=== PATIENT | male | born 1965 | race Caucasian/White ===

== ENCOUNTER 2022-03-12 14:25 | Inpatient (IN) | payer OTHER ==
[2022-03-12] MEDS ORDERED: SODIUM CHLORIDE 0.9% 1,000 ML IV STA (14:41)
[2022-03-12] MEDS ORDERED: DIPH,PERTUS(ACELL)TETVAC-LF 0.5 ML VIAL IM ONE (14:43)
[2022-03-12] MEDS ORDERED: DILTIAZEM DRIP BOLUS FROM BAG 1 MG SOLN IV ONE (14:44)
[2022-03-12] MEDS: DILTIAZEM 125 MG in SODIUM CHLORIDE 0.9% 100 ML IV SCH ×3 (14:52→16:22)
--- NOTE | 2022-03-12 15:20 | ED ---
General Adult HPI - General Chief complaint: Neuro Symptoms/Deficit Stated complaint: Stroke Time Seen by Provider: 03/12/22 14:50 Source: patient, RN notes reviewed, old records reviewed Mode of arrival: ambulatory Limitations: no limitations - History of Present Illness Initial comments: This is a 56-year-old male presents emergency Department states he is a heavy drinker. He quit about 6 weeks ago. Patient states since that time he's been having on and off droopiness on the right side of his face as well as slurred speech. Patient also has noted some weakness in his right arm. Patient states it comes and goes up until about 3 days ago and now it is stays permanently. Patient states this droop in the right side of his face is not changed the slurred speech again remains constant for 3 days. Patient states the weakness in the arm also started about 3 days ago and has not changed and he is also loss of coordination of the right arm. Patient denies any headache patient denies numbness weakness. Patient states he did fall today and hit the front of his head. Patient states he has no chest pain palpitations difficulty breathing or shortness of breath. - Related Data Home Medications Medication Instructions Recorded Confirmed No Known Home Medications 03/12/22 03/12/22 Allergies Allergy/AdvReac Type Severity Reaction Status Date / Time No Known Allergies Allergy Verified 03/12/22 15:57 Review of Systems ROS Statement: Those systems with pertinent positive or pertinent negative responses have been documented in the HPI. ROS Other: All systems not noted in ROS Statement are negative. Past Medical History Past Medical History: No Reported History History of Any Multi-Drug Resistant Organisms: None Reported Past Surgical History: No Surgical Hx Reported Past Psychological History: No Psychological Hx Reported Smoking Status: Current every day smoker Past Alcohol Use History: Abuse, Daily Past Drug Use History: None Reported General Exam - General Exam Comments Initial Comments: GENERAL: Patient is well-developed and well-nourished. Patient is nontoxic and well- hydrated and is in mild distress. ENT: Neck is soft and supple. No significant lymphadenopathy is noted. Oropharynx is clear. Moist mucous membranes. Neck has full range of motion without eliciting any pain. EYES: The sclera were anicteric and conjunctiva were pink and moist. Extraocular movements were intact and pupils were equal round and reactive to light. Eyelids were unremarkable. PULMONARY: Unlabored respirations. Good breath sounds bilaterally. No audible rales rhonchi or wheezing was noted. CARDIOVASCULAR: Patient is tachycardic and irregular at about 160 beats a minute ABDOMEN: Soft and nontender with normal bowel sounds. SKIN: Patient has a superficial abrasion to the bridge of his nose and forehead. NEUROLOGIC: Patient is alert and oriented x3. Patient has right-sided facial droop. Patient's right hand significantly weaker 3 out of 5 compared to the left. Patient's speech is slurred. Symmetrical smile. Finger to nose testing of the right hand is significantly off MUSCULOSKELETAL: Normal extremities with adequate strength and full range of motion. LYMPHATICS: No significant lymphadenopathy is noted PSYCHIATRIC: Normal psychiatric evaluation. Limitations: no limitations Course Vital Signs 03/12/22 03/12/22 03/12/22 14:49 15:15 16:07 Temperature 97.9 F Pulse Rate 172 H 128 H 160 H Respiratory 24 14 Rate Blood Pressure 114/80 104/74 138/104 O2 Sat by Pulse 87 L 97 Oximetry 03/12/22 18:16 Temperature Pulse Rate 111 H Respiratory 16 Rate Blood Pressure 100/71 O2 Sat by Pulse 71 L Oximetry Medical Decision Making - Medical Decision Making Patient was started on Cardizem. EKG shows atrial fibrillation with rapid ventricular response at 169 bpm QRS is 93 QT interval 250 QTC is 342. Patient's EKG shows no ST segment elevation or depression. CT of the chest showed multiple pulmonary embolisms with some heart strain. Patient was started on high-dose heparin. Patient's ABG showed a pH of 7.4 pCO2 15 partial pressure of oxygen of 109 bicarb of 10 and O2 sat of 97.[address] Barksdale he agreed to admit the patient admitted the patient I consulted Dr. Frederick. I spoke with Dr. Frederick he agreed to accept the admission to the ICU. - Lab Data Result diagrams: 03/12/22 15:15 03/12/22 15:15 Lab Results 03/12/22 03/12/22 03/12/22 Range/Units 15:15 15:15 15:15 WBC 10.8 H (3.8-10.6) k/uL RBC 5.40 (4.30-5.90) m/uL Hgb 16.9 (13.0-17.5) gm/dL Hct 54.7 H (39.0-53.0) % MCV 101.2 H (80.0-100.0) fL MCH 31.3 (25.0-35.0) pg MCHC 31.0 (31.0-37.0) g/dL RDW 13.8 (11.5-15.5) % Plt Count 168 (150-450) k/uL MPV 9.7 Neutrophils % 80 % Lymphocytes % 13 % Monocytes % 5 % Eosinophils % 0 % Basophils % 0 % Neutrophils # 8.7 H (1.3-7.7) k/uL Lymphocytes # 1.4 (1.0-4.8) k/uL Monocytes # 0.5 (0-1.0) k/uL Eosinophils # 0.0 (0-0.7) k/uL Basophils # 0.0 (0-0.2) k/uL Hypochromasia Slight Macrocytosis Slight PT 19.9 H (9.0-12.0) sec INR 2.0 H (<1.2) APTT 23.0 (22.0-30.0) sec D-Dimer (<0.60) mg/L FEU Sample Site ABG pH (7.35-7.45) ABG pCO2 (35-45) mmHg ABG pO2 (83-108) mmHg ABG HCO3 (21-25) mmol/L ABG Total CO2 (19-24) mmol/L ABG O2 Saturation (94-97) % ABG Base Excess mmol/L Behzad Test FiO2 % Sodium 140 (137-145) mmol/L Potassium 4.3 (3.5-5.1) mmol/L Chloride 105 (98-107) mmol/L Carbon Dioxide 13 L (22-30) mmol/L Anion Gap 22 mmol/L BUN 32 H (9-20) mg/dL Creatinine 1.50 H (0.66-1.25) mg/dL Est GFR (CKD-EPI)AfAm 59 (>60 ml/min/1.73 sqM) Est GFR (CKD-EPI)NonAf 51 (>60 ml/min/1.73 sqM) Glucose 119 H (74-99) mg/dL Calcium 9.1 (8.4-10.2) mg/dL Total Bilirubin 7.2 H (0.2-1.3) mg/dL AST 2512 H (17-59) U/L ALT 1651 H (4-49) U/L Alkaline Phosphatase 134 H (38-126) U/L Ammonia (<30) umol/L Troponin I (0.000-0.034) ng/mL NT-Pro-B Natriuret Pep pg/mL Total Protein 7.1 (6.3-8.2) g/dL Albumin 3.8 (3.5-5.0) g/dL Serum Alcohol <10 mg/dL 03/12/22 03/12/22 03/12/22 Range/Units 15:15 16:20 16:20 WBC (3.8-10.6) k/uL RBC (4.30-5.90) m/uL Hgb (13.0-17.5) gm/dL Hct (39.0-53.0) % MCV (80.0-100.0) fL MCH (25.0-35.0) pg MCHC (31.0-37.0) g/dL RDW (11.5-15.5) % Plt Count (150-450) k/uL MPV Neutrophils % % Lymphocytes % % Monocytes % % Eosinophils % % Basophils % % Neutrophils # (1.3-7.7) k/uL Lymphocytes # (1.0-4.8) k/uL Monocytes # (0-1.0) k/uL Eosinophils # (0-0.7) k/uL Basophils # (0-0.2) k/uL Hypochromasia Macrocytosis PT (9.0-12.0) sec INR (<1.2) APTT (22.0-30.0) sec D-Dimer 15.21 H (<0.60) mg/L FEU Sample Site ABG pH (7.35-7.45) ABG pCO2 (35-45) mmHg ABG pO2 (83-108) mmHg ABG HCO3 (21-25) mmol/L ABG Total CO2 (19-24) mmol/L ABG O2 Saturation (94-97) % ABG Base Excess mmol/L Behzad Test FiO2 % Sodium (137-145) mmol/L Potassium (3.5-5.1) mmol/L Chloride (98-107) mmol/L Carbon Dioxide (22-30) mmol/L Anion Gap mmol/L BUN (9-20) mg/dL Creatinine (0.66-1.25) mg/dL Est GFR (CKD-EPI)AfAm (>60 ml/min/1.73 sqM) Est GFR (CKD-EPI)NonAf (>60 ml/min/1.73 sqM) Glucose (74-99) mg/dL Calcium (8.4-10.2) mg/dL Total Bilirubin (0.2-1.3) mg/dL AST (17-59) U/L ALT (4-49) U/L Alkaline Phosphatase (38-126) U/L Ammonia (<30) umol/L Troponin I 0.017 (0.000-0.034) ng/mL NT-Pro-B Natriuret Pep 6360 pg/mL Total Protein (6.3-8.2) g/dL Albumin (3.5-5.0) g/dL Serum Alcohol mg/dL 03/12/22 03/12/22 Range/Units 16:41 17:22 WBC (3.8-10.6) k/uL RBC (4.30-5.90) m/uL Hgb (13.0-17.5) gm/dL Hct (39.0-53.0) % MCV (80.0-100.0) fL MCH (25.0-35.0) pg MCHC (31.0-37.0) g/dL RDW (11.5-15.5) % Plt Count (150-450) k/uL MPV Neutrophils % % Lymphocytes % % Monocytes % % Eosinophils % % Basophils % % Neutrophils # (1.3-7.7) k/uL Lymphocytes # (1.0-4.8) k/uL Monocytes # (0-1.0) k/uL Eosinophils # (0-0.7) k/uL Basophils # (0-0.2) k/uL Hypochromasia Macrocytosis PT (9.0-12.0) sec INR (<1.2) APTT (22.0-30.0) sec D-Dimer (<0.60) mg/L FEU Sample Site Right Radial ABG pH 7.42 (7.35-7.45) ABG pCO2 16 L* (35-45) mmHg ABG pO2 109 H (83-108) mmHg ABG HCO3 10 L* (21-25) mmol/L ABG Total CO2 11 L (19-24) mmol/L ABG O2 Saturation 97.9 H (94-97) % ABG Base Excess -14.5 mmol/L Behzad Test Yes FiO2 21 % Sodium (137-145) mmol/L Potassium (3.5-5.1) mmol/L Chloride (98-107) mmol/L Carbon Dioxide (22-30) mmol/L Anion Gap mmol/L BUN (9-20) mg/dL Creatinine (0.66-1.25) mg/dL Est GFR (CKD-EPI)AfAm (>60 ml/min/1.73 sqM) Est GFR (CKD-EPI)NonAf (>60 ml/min/1.73 sqM) Glucose (74-99) mg/dL Calcium (8.4-10.2) mg/dL Total Bilirubin (0.2-1.3) mg/dL AST (17-59) U/L ALT (4-49) U/L Alkaline Phosphatase (38-126) U/L Ammonia 35 H (<30) umol/L Troponin I (0.000-0.034) ng/mL NT-Pro-B Natriuret Pep pg/mL Total Protein (6.3-8.2) g/dL Albumin (3.5-5.0) g/dL Serum Alcohol mg/dL Critical Care Time Critical Care Time: Yes Total Critical Care Time: 35 Disposition Clinical Impression: Cerebrovascular accident (CVA), Alcoholic hepatitis, Alcohol abuse, Pulmonary embolism, Atrial fibrillation with rapid ventricular response, Pulmonary infarct Disposition: ADMITTED IP TO THIS HOSP Referrals: None,Stated [Primary Care Provider] - 1-2 days Time of Disposition: 18:39
[2022-03-12 15:33] LABS: Prothrombin Time 19.9 sec (9.0-12.0)
[2022-03-12 15:38] LABS: Basophils % (A) 0 %; Eosinophils % (A) 0 %; HCT 54.7 % (39.0-53.0); HGB 16.9 gm/dL (13.0-17.5); Hypochromasia Slight; Lymphocytes # (A) 1.4 k/uL (1.0-4.8); Lymphocytes % (A) 13 %; MCH 31.3 pg (25.0-35.0); MCV 101.2 fL (80.0-100.0); Macrocytosis Slight; Mean Platelet Volume 9.7; Monocytes # (A) 0.5 k/uL (0-1.0); Monocytes % (A) 5 %; Neutrophils # (A) 8.7 k/uL (1.3-7.7); Neutrophils % (A) 80 %; Platelet Count 168 k/uL (150-450); RDW 13.8 % (11.5-15.5); WBC 10.8 k/uL (3.8-10.6)
--- NOTE | 2022-03-12 15:53 | CT ---
EXAMINATION TYPE: CT brain wo con DATE OF EXAM: 03/12/2022 COMPARISON: None HISTORY: ams, cva CT DLP: [address] of the brain was performed. The ventricles, basal cisterns and sulci overlying the cerebral convexities demonstrate mild enlargem ent. There is decreased attenuation left parietal lobe which could reflect an area of acute insult. C orrelate clinically. There is no evidence for intracranial hemorrhage or sulcal effacement. There is decreased attenuation about the periventricular white matter and deep white matter of both c erebral hemispheres, compatible with chronic small vessel ischemia. Differential diagnosis does inclu de demyelination. No mass effects are seen.No midline shift. Osseous calvarium is intact. If symptoms persist consider MRI. IMPRESSION: 1. There is decreased attenuation left parietal lobe which could reflect an area of acute insult. Cor relate clinically. No hemorrhagic transformation seen
--- NOTE | 2022-03-12 15:58 | XR ---
EXAMINATION TYPE: XR chest 2V DATE OF EXAM: 03/12/2022 COMPARISON: NONE HISTORY: Shortness of breath TECHNIQUE: Frontal and lateral views of the chest are obtained. FINDINGS: Scattered senescent parenchymal changes noted. Hyperinflation compatible with COPD. Increased density right lower lobe may reflect developing infiltrate. Correlate clinically and progre ss studies are recommended. Heart size is stable. Mediastinal structures are stable and grossly unremarkable. No evidence for hilar prominence. Degenerative changes dorsal spine. IMPRESSION: 1. No evidence for acute pulmonary disease.
[2022-03-12 16:02] LABS: African American GFR (CKD) 59 (>60 ml/min/1.73 sqM); Albumin 3.8 g/dL (3.5-5.0); Alcohol <10 mg/dL; Alkaline Phosphatase 134 U/L (38-126); Anion Gap 22 mmol/L; Blood Urea Nitrogen 32 mg/dL (9-20); Calcium 9.1 mg/dL (8.4-10.2); Carbon Dioxide 13 mmol/L (22-30); Chloride 105 mmol/L (98-107); Glucose 119 mg/dL (74-99); Non-African American GFR(CKD) 51 (>60 ml/min/1.73 sqM); Potassium 4.3 mmol/L (3.5-5.1); Sodium 140 mmol/L (137-145); Total Bilirubin 7.2 mg/dL (0.2-1.3); Total Protein 7.1 g/dL (6.3-8.2)
--- NOTE | 2022-03-12 16:30 | CT ---
EXAMINATION TYPE: CT angio head neck DATE OF EXAM: 03/12/2022 HISTORY: ams, cva COMPARISON: CT same date CT DLP: 544.7 mGycm. Automated Exposure Control for Dose Reduction was Utilized. TECHNIQUE: CTA scan of the neck and brain is performed with IV Contrast, patient injected with 65cc mL of Isovue 370, axial images are obtained, coronal and sagittal reformatted images are reviewed. 3D reconstructed images are created on an independent workstation and reviewed. FINDINGS: Carotid/Vascular Structures: The innominate artery, left and right common carotid, left and right sub clavian, left and right vertebral arteries, internal and extra carotid arteries are patent . Anterior posterior circulation within the brain is intact. No evident aneurysm, stenosis, dissection, embolus . Other: There is multilevel spondylosis, uncovertebral joint hypertrophy consistent with degenerative disc disease, there is multilevel foraminal encroachment IMPRESSION: No significant abnormality is seen. NASCET criteria was used in interpretation of this exam?
[2022-03-12 16:46] LABS: ABG Base Excess -14.5 mmol/L; ABG Oxygen Saturation 97.9 % (94-97); ABG PH 7.42 (7.35-7.45); ABG PO2 109 mmHg (83-108); ABG TCO2 11 mmol/L (19-24); Allen Test Performed? Yes
[2022-03-12 16:52] LABS: ABG HCO3 10 mmol/L (21-25); ABG PCO2 16 mmHg (35-45)
[2022-03-12 16:59] LABS: ALT 1651 U/L (4-49); AST 2512 U/L (17-59)
--- NOTE | 2022-03-12 18:11 | CT ---
EXAMINATION TYPE: CT chest angio for PE CT DLP: 684.7 mGycm, Automated exposure control for dose reduction was used. DATE OF EXAM: 03/12/2022 5:40 PM COMPARISON: Chest radiograph from same day. Multiple CTs of the chest with most recent on . CLINICAL INDICATION:Male, 56 years old with history of D-dimer elevated, shortness of breath; elevate d d-dimer, ams TECHNIQUE/CONTRAST: CTA scan of the thorax is performed with IV Contrast, patient injected with 65cc mL of Isovue 370, pulmonary embolism protocol. MIP images are created and reviewed. FINDINGS: Motion limits evaluation. Pulmonary Artery: There are scattered filling defects most pronounced on the right involving the righ t upper middle and lower lobes lobar and segmental branches extending into the subsegmental branches. Additional subsegmental filling defects are seen within the left upper lobe. Motion does limit evalu ation of the smaller pulmonary vasculature. Lungs/Pleura: Wedge-shaped area of consolidation seen within the right lower lobe could be early pulm onary infarct. Airway: Large airways are patent. Heart: Within normal limits for size.. Vasculature: No evidence of aortic aneurysm. Mediastinum: No gross evidence of adenopathy. Musculoskeletal: No acute osseous abnormalities. Multilevel disc degeneration changes of the spine wi th straightening of the spine curvature. Soft Tissues: Unremarkable. Lower neck: No significant findings. Upper Abdomen: Diffuse low-attenuation to the liver parenchyma. Nonobstructing left renal calculi par tially visualized. Findings communicated to Dr. Hay Chaparro on 03/12/2022 6:[address] Julio Galvez. IMPRESSION: 1. Scattered pulmonary emboli which are are most pronounced on the right. There is signs of right hea rt strain with reflux of contrast into the IVC. Correlate with serum markers. 2. Wedge-shaped area within the right lower lobe likely representing pulmonary infarct from #1.
[2022-03-12] MEDS ORDERED: LORazepam 2 MG/ML INJ IV PRN (18:36)
[2022-03-12] MEDS ORDERED: THIAMINE 100 MG/ML 2 ML VIAL IM STA (18:36)
[2022-03-12] MEDS ORDERED: DEXTROSE 5% IN WATER 1,000 ML with SODIUM BICARB (1 MEQ/ML) 100 ML IV SCH (18:45)
[2022-03-12] MEDS ORDERED: NALOXONE 0.4 MG/ML 1 ML VIAL IV PRN (18:47)
[2022-03-12] MEDS: HEPARIN SOD,PORK IN 0.45% NACL 25,000 UNIT in 0.45% NACL 1 250ML.BAG IV SCH (18:54)
[2022-03-12] MEDS: THIAMINE 100 MG TAB PO SCH (19:15)
[2022-03-12 22:36] LABS: Acetaminophen <10.0 ug/mL; Salicylate <1.0 mg/dL
[2022-03-12 22:38] LABS: Glucose,Whole Blood 95 mg/dL (75-99)
[2022-03-13] MEDS: DILTIAZEM 125 MG in SODIUM CHLORIDE 0.9% 100 ML IV SCH ×3 (00:34→22:05)
[2022-03-13 01:00] LABS: Amphetamine Screen,Urine Not Detected (NotDetected); Barbiturate Screen,Urine Not Detected (NotDetected); Benzodiazepines Screen,Urine Not Detected (NotDetected); Cocaine Screen,Urine Not Detected (NotDetected); Methadone Screen, Urine Not Detected (NotDetected); Opiate Screen,Urine Not Detected (NotDetected); Oxycodone Screen, Urine Not Detected (NotDetected); Phencyclidine Screen,Urine Not Detected (NotDetected); Tricyclic Antidepressant,Urine Not Detected (NotDetected); Urn Cannabinoid Scrn Not Detected (NotDetected)
[2022-03-13] MEDS ORDERED: IPRATROPIUM-ALBUTEROL 3 ML NEB INHALATION STA (02:13)
[2022-03-13] MEDS ORDERED: FUROSEMIDE 10 MG/ML 4 ML VIAL IV STA (02:14)
--- NOTE | 2022-03-13 06:14 | XR ---
EXAMINATION TYPE: XR chest 1V portable DATE OF EXAM: 03/13/2022 CLINICAL HISTORY: Difficulty breathing progress study. TECHNIQUE: Single AP portable upright view of the chest is obtained. COMPARISON: Chest x-ray and CTA chest from one day earlier FINDINGS: Wedge-shaped consolidation in the periphery of the right lower lung is redemonstrated. Lef t lung remains clear. Mild cardiomegaly again seen. Osseous structures are intact. IMPRESSION: Stable wedge-shaped consolidation in the periphery of the right lower lobe.
[2022-03-13 06:57] LABS: Calcium 8.6 mg/dL (8.4-10.2); HCT 51.8 % (39.0-53.0); HGB 15.5 gm/dL (13.0-17.5); Hypochromasia Marked; MCH 32.1 pg (25.0-35.0); MCHC 29.9 g/dL (31.0-37.0); Macrocytosis Moderate; Platelet Count 188 k/uL (150-450); RBC 4.81 m/uL (4.30-5.90); RDW 13.7 % (11.5-15.5)
[2022-03-13 06:58] LABS: MCV 107.6 fL (80.0-100.0)
[2022-03-13 07:11] LABS: Potassium 5.9 mmol/L (3.5-5.1)
[2022-03-13 07:15] LABS: Lymphocytes # (M) 1.01 k/uL (1.0-4.8); Monocytes # (M) 0.67 k/uL (0-1.0); Neutrophils # (M) 15.12 k/uL (1.3-7.7); Neutrophils % (M) 90 %; Nucleated Red Blood Cells 9 /100 WBC (0-0); Polychromasia Present; Total Cells Counted 100; WBC 16.8 k/uL (3.8-10.6)
--- NOTE | 2022-03-13 07:17 | P.CRDCN ---
History of Present Illness Consult date: 03/13/22 Chief complaint: Reason for the consult is atrial fibrillation History of present illness: This is a 56-year-old gentleman who did not see a physician in long time and does not take any medication at home but known history of excessive alcohol use was brought to the emergency department for change in mental status. The patient currently is in the intensive care unit. The patient was diagnosed with acute stroke and he does have right-sided weakness and expressive aphasia and he is somewhat poor historian and the history was taken from the chart as well as from the nurse taking care of the patient. Apparently the patient was experiencing intermittent episodes of right sided weakness and slurred speech for the last several weeks. The right sided weakness and slurred speech started 3 days ago this time but it did not go away and subsequently the patient fell on the ground and he was brought to the emergency department. He underwent a workup for acute stroke including computed tomography scan of the brain which showed an acute finding on the left side and also he underwent a CTA of the head and neck which came in to be unremarkable for abnormalities. We consulted to see the patient mainly because of atrial fibrillation. It was noted that the patient EKG showed atrial fibrillation with diffuse nonspecific ST and T wave abnormalities with low voltage QRS. For some reason the patient ended having investigation for pulmonary embolism. He underwent a computed tomography scan of the lung and that revealed scattered bilateral pulmonary embolism with evidence of RV strain and is hard to tell if the SHEELA is acute or chronic. Currently the patient is on heparin as well as he is on Cardizem for the atrial fibrillation. He is in A. fib with overall controlled heart rate. His pressure has been marginal with systolic pressure in the 90s. He is not experiencing at this moment any symptoms of any chest pain or chest discomfort or any shortness of breath but as a mentioned earlier he is somewhat poor historian and hard to tell if he is symptomatic at this point. He is a stable hemodynamically with marginally low blood pressure and heart rate has been controlled on the current dose of Cardizem IV. He is a somewhat hypoxic and requiring oxygen. Currently an echocardiogram is in process to be done. Beside that neurology service is consulted to see the patient for the further evaluation of management for possible acute stroke. Past Medical History Past Medical History: No Reported History History of Any Multi-Drug Resistant Organisms: None Reported Past Surgical History: No Surgical Hx Reported Past Anesthesia/Blood Transfusion Reactions: No Reported Reaction Past Psychological History: No Psychological Hx Reported Smoking Status: Former smoker Past Alcohol Use History: Abuse, Daily Past Drug Use History: None Reported - Past Family History Father Family Medical History: Myocardial Infarction ([place]) Additional Family Medical History / Comment(s): Pt states his father had "three heart attacks" Mother History Unknown: Yes Medications and Allergies Home Medications Medication Instructions Recorded Confirmed Type No Known Home Medications 03/12/22 03/12/22 History Allergies Allergy/AdvReac Type Severity Reaction Status Date / Time No Known Allergies Allergy Verified 03/12/22 15:57 Physical Exam Vitals: Vital Signs Temp Pulse Resp BP BP Pulse Ox 03/13/22 07:00 73 20 83/57 88 L 03/13/22 06:30 80 28 H 95/73 90 L 03/13/22 06:00 79 23 90/63 91 L 03/13/22 05:30 88 18 92/73 90 L 03/13/22 05:00 75 27 H 124/67 90 L 03/13/22 04:30 82 28 H 113/66 90 L 03/13/22 04:00 97.7 F 85 28 H 101/87 92 L 03/13/22 03:31 84 03/13/22 03:30 79 22 84/69 90 L 03/13/22 03:26 85 03/13/22 03:00 83 22 99/63 93 L 03/13/22 02:30 84 38 H 104/92 90 L 03/13/22 02:00 86 30 H 106/65 87 L 03/13/22 01:45 92 28 H 107/68 91 L 03/13/22 01:30 81 27 H 103/79 90 L 03/13/22 01:15 86 23 98/65 88 L 03/13/22 01:00 101 H 24 98/65 89 L 03/13/22 00:45 93 24 97/75 89 L 03/13/22 00:30 88 28 H 96/77 90 L 03/13/22 00:22 87 30 H 92/43 91 L 03/13/22 00:15 85 24 99/72 90 L 03/13/22 00:00 98.2 F 92 22 102/90 93 L 03/12/22 23:45 91 24 91/78 92 L 03/12/22 23:30 102 H 18 129/73 90 L 03/12/22 23:10 95 24 102/73 89 L 03/12/22 23:00 97 28 H 106/74 90 L 03/12/22 22:40 101 H 21 125/88 03/12/22 22:30 97.8 F 20 125/88 92 L 03/12/22 22:05 98.8 F 93 22 111/79 82 L 03/12/22 21:00 92 18 106/64 03/12/22 20:09 99 18 111/91 03/12/22 19:21 105 H 18 103/83 03/12/22 18:16 111 H 16 100/71 71 L 03/12/22 16:07 160 H 138/104 03/12/22 15:15 128 H 14 104/74 97 03/12/22 14:49 97.9 F 172 H 24 114/80 87 L Intake and Output 03/12/22 03/13/22 03/13/22 22:59 06:59 14:59 Intake Total 830.486 75 Output Total 2220 Balance -1389.514 75 Intake: IV 600 75 Dextrose 5% in Water 1, 600 75 000 ml @ 75 mls/hr IV . [id number] YESENIA with Sodium Bicarb (1 Meq/ml) 100 ml Rx#:[id number] Intake, IV Titration 230.486 Amount Diltiazem 125 mg In 82 Sodium Chloride 0.9% 100 ml @ 10 MG/HR 10 mls/hr IV .[id number] [facility] Rx#: [id number] Heparin Sod,Pork in 0.45% 148.486 NaCl 25,000 unit In 0.45 % NaCl 1 250ml.bag @ 18 UNITS/KG/HR 17.962 mls/hr IV .[id number] [facility] Rx#: [id number] Output: Urine 1360 Post Void Residual 860 Other: Voiding Method Urinal # Voids 0 0 Weight 99.79 kg 86.5 kg - Constitutional General appearance: no acute distress - Respiratory Respiratory: bilateral: diminished - Cardiovascular Rhythm: irregularly irregular Heart sounds: normal: S1, S2 Abnormal Heart Sounds: systolic murmur Results 03/13/22 06:25 03/12/22 15:15 Cardiac Enzymes 03/12/22 03/12/22 Range/Units 15:15 15:15 AST 2512 H (17-59) U/L Troponin I 0.017 (0.000-0.034) ng/mL Coagulation 03/12/22 03/13/22 Range/Units 15:15 01:43 PT 19.9 H (9.0-12.0) sec APTT 23.0 >200.0 H* (22.0-30.0) sec CBC 03/12/22 03/13/22 Range/Units 15:15 06:25 WBC 10.8 H 18.3 H (3.8-10.6) k/uL RBC 5.40 4.81 (4.30-5.90) m/uL Hgb 16.9 15.5 (13.0-17.5) gm/dL Hct 54.7 H 51.8 (39.0-53.0) % Plt Count 168 188 (150-450) k/uL Comprehensive Metabolic Panel 03/12/22 Range/Units 15:15 Sodium 140 (137-145) mmol/L Potassium 4.3 (3.5-5.1) mmol/L Chloride 105 (98-107) mmol/L Carbon Dioxide 13 L (22-30) mmol/L BUN 32 H (9-20) mg/dL Creatinine 1.50 H (0.66-1.25) mg/dL Glucose 119 H (74-99) mg/dL Calcium 9.1 (8.4-10.2) mg/dL AST 2512 H (17-59) U/L ALT 1651 H (4-49) U/L Alkaline Phosphatase 134 H (38-126) U/L Total Protein 7.1 (6.3-8.2) g/dL Albumin 3.8 (3.5-5.0) g/dL Current Medications Generic Name Dose Route Start Last Admin Trade Name Freq PRN Reason Stop Dose Admin Diltiazem HCl 125 mg/ Sodium 125 mls @ 5 mls/hr 03/12/22 14:45 03/12/22 14:54 Chloride IV 5 mg/hr .Q24H YESENIA 5 mls/hr Administration 5 MG/HR Diltiazem HCl 125 mg/ Sodium 125 mls @ 10 mls/hr 03/12/22 16:15 03/13/22 00:34 Chloride IV 10 mg/hr .[id number] YESENIA 10 mls/hr Administration 10 MG/HR Heparin Sodium/Sodium Chloride 250 mls @ 17.962 mls/hr 03/12/22 18:15 03/13/22 04:10 25,000 unit/ Sodium Chloride IV 15 units/kg/hr .[id number] YESENIA 14.969 mls/hr Titration Protocol 18 UNITS/KG/HR Sodium Bicarbonate 100 ml/ 1,100 mls @ 75 mls/hr 03/12/22 18:45 03/12/22 19:26 Dextrose/Water IV 75 mls/hr .[id number] YESENIA Administration Lorazepam 1 mg 03/12/22 18:36 Lorazepam 2 Mg/Ml Inj IV Q2HR PRN CIWA 8 or 9 Lorazepam 1 mg 03/12/22 18:36 Lorazepam 2 Mg/Ml Inj IV Q1HR PRN CIWA 10 to 15 Lorazepam 2 mg 03/12/22 18:36 Lorazepam 2 Mg/Ml Inj IV 03/14/22 18:36 Q10M PRN CIWA 16 or higher Naloxone HCl 0.2 mg 03/12/22 18:47 Naloxone 0.4 Mg/Ml 1 Ml Vial IV Q2M PRN Opioid Reversal Thiamine HCl 100 mg 03/12/22 18:30 03/12/22 19:15 Thiamine 100 Mg Tab PO Not Given BID-W/MEALS YESENIA Intake and Output 03/12/22 03/13/22 03/13/22 22:59 06:59 14:59 Intake Total 830.486 75 Output Total 2220 Balance -1389.514 75 Intake: IV 600 75 Dextrose 5% in Water 1, 600 75 000 ml @ 75 mls/hr IV . [id number] YESENIA with Sodium Bicarb (1 Meq/ml) 100 ml Rx#:[id number] Intake, IV Titration 230.486 Amount Diltiazem 125 mg In 82 Sodium Chloride 0.9% 100 ml @ 10 MG/HR 10 mls/hr IV .[id number] YESENIA Rx#: [id number] Heparin Sod,Pork in 0.45% 148.486 NaCl 25,000 unit In 0.45 % NaCl 1 250ml.bag @ 18 UNITS/KG/HR 17.962 mls/hr IV .[id number] YESENIA Rx#: [id number] Output: Urine 1360 Post Void Residual 860 Other: Voiding Method Urinal # Voids 0 0 Weight 99.79 kg 86.5 kg 03/13/22 06:25 03/12/22 15:15 Assessment and Plan Assessment: Assessment #1 bilateral pulmonary embolism on a CTA of the chest, and known if the pulmonary embolism acute versus chronic #2 atrial fibrillation of unknown etiology at this point, differential diagnoses include paroxysmal versus persistent versus long-standing persistent #3 acute stroke presented as right sided weakness and slurred speech/expressive aphasia #4 excessive alcohol use Plan #1 continue anticoagulation with heparin at this point and consider switching t he patient to oral anticoagulation down the line #2 consider switching the patient to oral AV mahsa ne agent #3 rule out patent foramen ovale which could be responsible for the stroke in the setting of pulmonary embolism. Also the stroke. 2 atrial fibrillation #4 follow-up on the echocardiogram which was ordered earlier today #5 further recommendation to follow the echocardiogram #6 assess if the pulmonary embolism acute versus chronic, and consider possible adjunctive use of ultrasonic for the pulmonary embolism
[2022-03-13] MEDS: THIAMINE 100 MG TAB PO SCH ×2 (08:02→17:34)
[2022-03-13] MEDS: HEPARIN SOD,PORK IN 0.45% NACL 25,000 UNIT in 0.45% NACL 1 250ML.BAG IV SCH ×2 (09:03→23:18)
[2022-03-13] MEDS: DEXTROSE 5% IN WATER 1,000 ML with SODIUM BICARB (1 MEQ/ML) 150 ML IV SCH ×2 (09:03→20:59)
--- NOTE | 2022-03-13 10:52 | P.GSCN ---
History of Present Illness Consult date: 03/13/22 Reason for Consult: Pulmonary embolism Requesting physician: Hay Chaparro History of present illness: This is a 56-year-old male who presented to the emergency department yesterday with complaints of right-sided weakness, right-sided facial drooping and slurred speech. He reportedly stated that it was coming and going for last several days up until 3 days ago when it became a permanent symptom. He has a past medical history of heavy alcohol abuse and daily smoker. Dates he quit drinking about 5-6 weeks ago. He denies any previous other medical history. On admission in the emergency room he was noted to be in atrial fibrillation with RVR. He should have an elevated d-dimer. Chest CT angiogram reported scattered multiple pulmonary emboli most pronounced on right with signs of right heart strain with reflux of contrast into the IVC. Wedge-shaped area within the right lower lobe likely representing pulmonary infarct. Vascular surgery was consulted for the above. He currently denies any shortness of breath, chest pain, abdominal pain, nausea or vomiting. No blurred vision. He is able to answer questions and follow commands. He is on 4 L nasal cannula saturation 97%. Patient currently on Cardizem drip, nursing reported rate control through the night. Patient also underwent CT of the brain reported decreased attenuation left parietal lobe which could reflect an area of acute insult. No hemorrhagic transformation seen. CT angiogram head and neck reported no abnormal findings. Review of Systems A 14 point review systems was completed all pertinent positives and negatives as stated in the HPI. Past Medical History Past Medical History: No Reported History History of Any Multi-Drug Resistant Organisms: None Reported Past Surgical History: No Surgical Hx Reported Past Anesthesia/Blood Transfusion Reactions: No Reported Reaction Past Psychological History: No Psychological Hx Reported Smoking Status: Former smoker Past Alcohol Use History: Abuse, Daily Past Drug Use History: None Reported - Past Family History Father Family Medical History: Myocardial Infarction ([place]) Additional Family Medical History / Comment(s): Pt states his father had "three heart attacks" Mother History Unknown: Yes Medications and Allergies Home Medications Medication Instructions Recorded Confirmed Type No Known Home Medications 03/12/22 03/12/22 History Allergies Allergy/AdvReac Type Severity Reaction Status Date / Time No Known Allergies Allergy Verified 03/12/22 15:57 Surgical - Exam Vital Signs Temp Pulse Resp BP Pulse Ox 97.9 F 172 H 24 114/80 87 L 03/12/22 14:49 03/12/22 14:49 03/12/22 14:49 03/12/22 14:49 03/12/22 14:49 General appearance: The patient is alert, oriented x2, appears in no acute distress. HET: Head is normocephalic and atraumatic. Pupils are equal and reactive. Neck: Supple without lymphadenopathy. Trachea midline. No audible carotid bruit. Heart: S1 S2. Regular rate and rhythm. Lungs: Clear to auscultation bilaterally. Abdomen: Soft, nontender, nondistended. Extremities: Normal skin color and turgor. No cyanosis, rash, ulceration, clubbing, or edema. Radial pulses palpable bilaterally. Neurological: Right-sided facial droop, dysarthria, right upper extremity weakness, grasp 1/5. Patient able to answer most questions appropriately and follow commands. Results - Labs 03/13/22 06:25 03/13/22 06:25 Abnormal Lab Results - Last 24 Hours (Table) 03/12/22 03/12/22 03/12/22 Range/Units 15:15 15:15 15:15 WBC 10.8 H (3.8-10.6) k/uL Hct 54.7 H (39.0-53.0) % MCV 101.2 H (80.0-100.0) fL MCHC (31.0-37.0) g/dL Neutrophils # 8.7 H (1.3-7.7) k/uL Neutrophils # (Manual) (1.3-7.7) k/uL Nucleated RBCs (0-0) /100 WBC PT 19.9 H (9.0-12.0) sec INR 2.0 H (<1.2) APTT (22.0-30.0) sec D-Dimer (<0.60) mg/L FEU ABG pCO2 (35-45) mmHg ABG pO2 (83-108) mmHg ABG HCO3 (21-25) mmol/L ABG Total CO2 (19-24) mmol/L ABG O2 Saturation (94-97) % Potassium (3.5-5.1) mmol/L Carbon Dioxide 13 L (22-30) mmol/L BUN 32 H (9-20) mg/dL Creatinine 1.50 H (0.66-1.25) mg/dL Glucose 119 H (74-99) mg/dL Total Bilirubin 7.2 H (0.2-1.3) mg/dL AST 2512 H (17-59) U/L ALT 1651 H (4-49) U/L Alkaline Phosphatase 134 H (38-126) U/L Ammonia (<30) umol/L 03/12/22 03/12/22 03/12/22 Range/Units 16:20 16:41 17:22 WBC (3.8-10.6) k/uL Hct (39.0-53.0) % MCV (80.0-100.0) fL MCHC (31.0-37.0) g/dL Neutrophils # (1.3-7.7) k/uL Neutrophils # (Manual) (1.3-7.7) k/uL Nucleated RBCs (0-0) /100 WBC PT (9.0-12.0) sec INR (<1.2) APTT (22.0-30.0) sec D-Dimer 15.21 H (<0.60) mg/L FEU ABG pCO2 16 L* (35-45) mmHg ABG pO2 109 H (83-108) mmHg ABG HCO3 10 L* (21-25) mmol/L ABG Total CO2 11 L (19-24) mmol/L ABG O2 Saturation 97.9 H (94-97) % Potassium (3.5-5.1) mmol/L Carbon Dioxide (22-30) mmol/L BUN (9-20) mg/dL Creatinine (0.66-1.25) mg/dL Glucose (74-99) mg/dL Total Bilirubin (0.2-1.3) mg/dL AST (17-59) U/L ALT (4-49) U/L Alkaline Phosphatase (38-126) U/L Ammonia 35 H (<30) umol/L 03/13/22 03/13/22 03/13/22 Range/Units 01:43 06:25 06:25 WBC 16.8 H (3.8-10.6) k/uL Hct (39.0-53.0) % MCV 107.6 H D (80.0-100.0) fL MCHC 29.9 L (31.0-37.0) g/dL Neutrophils # (1.3-7.7) k/uL Neutrophils # (Manual) 15.12 H (1.3-7.7) k/uL Nucleated RBCs 9 H (0-0) /100 WBC PT (9.0-12.0) sec INR (<1.2) APTT >200.0 H* (22.0-30.0) sec D-Dimer (<0.60) mg/L FEU ABG pCO2 (35-45) mmHg ABG pO2 (83-108) mmHg ABG HCO3 (21-25) mmol/L ABG Total CO2 (19-24) mmol/L ABG O2 Saturation (94-97) % Potassium 5.9 H (3.5-5.1) mmol/L Carbon Dioxide 7 L* (22-30) mmol/L BUN 38 H (9-20) mg/dL Creatinine 2.07 H (0.66-1.25) mg/dL Glucose (74-99) mg/dL Total Bilirubin (0.2-1.3) mg/dL AST (17-59) U/L ALT (4-49) U/L Alkaline Phosphatase (38-126) U/L Ammonia (<30) umol/L Diabetes panel 03/12/22 03/13/22 Range/Units 15:15 06:25 Sodium 140 141 (137-145) mmol/L Potassium 4.3 5.9 H (3.5-5.1) mmol/L Chloride 105 106 (98-107) mmol/L Carbon Dioxide 13 L 7 L* (22-30) mmol/L BUN 32 H 38 H (9-20) mg/dL Creatinine 1.50 H 2.07 H (0.66-1.25) mg/dL Glucose 119 H 96 (74-99) mg/dL Calcium 9.1 8.6 (8.4-10.2) mg/dL AST 2512 H (17-59) U/L ALT 1651 H (4-49) U/L Alkaline Phosphatase 134 H (38-126) U/L Total Protein 7.1 (6.3-8.2) g/dL Albumin 3.8 (3.5-5.0) g/dL Calcium panel 03/12/22 03/13/22 Range/Units 15:15 06:25 Calcium 9.1 8.6 (8.4-10.2) mg/dL Albumin 3.8 (3.5-5.0) g/dL Pituitary panel 03/12/22 03/13/22 Range/Units 15:15 06:25 Sodium 140 141 (137-145) mmol/L Potassium 4.3 5.9 H (3.5-5.1) mmol/L Chloride 105 106 (98-107) mmol/L Carbon Dioxide 13 L 7 L* (22-30) mmol/L BUN 32 H 38 H (9-20) mg/dL Creatinine 1.50 H 2.07 H (0.66-1.25) mg/dL Glucose 119 H 96 (74-99) mg/dL Calcium 9.1 8.6 (8.4-10.2) mg/dL Adrenal panel 03/12/22 03/13/22 Range/Units 15:15 06:25 Sodium 140 141 (137-145) mmol/L Potassium 4.3 5.9 H (3.5-5.1) mmol/L Chloride 105 106 (98-107) mmol/L Carbon Dioxide 13 L 7 L* (22-30) mmol/L BUN 32 H 38 H (9-20) mg/dL Creatinine 1.50 H 2.07 H (0.66-1.25) mg/dL Glucose 119 H 96 (74-99) mg/dL Calcium 9.1 8.6 (8.4-10.2) mg/dL Total Bilirubin 7.2 H (0.2-1.3) mg/dL AST 2512 H (17-59) U/L ALT 1651 H (4-49) U/L Alkaline Phosphatase 134 H (38-126) U/L Total Protein 7.1 (6.3-8.2) g/dL Albumin 3.8 (3.5-5.0) g/dL - Imaging Comments: Brain CT: There is decreased attenuation left parietal lobe which could reflect an area of acute insult. Correlate clinically. No hemorrhagic transformation seen. Chest x-ray: Stable wedge-shaped consolidation in the periphery of the right lower lobe. Head and neck CT angiogram: No significant abnormality seen. Chest CT angiogram: Scattered pulmonary emboli which are most pronounced on the right. Signs of right heart strain with reflux of contrast into the IVC. Correlate with serum markers. Wedge-shaped area within the right lower lobe likely representing pulmonary infarct from #1 Assessment and Plan Assessment: 1. Multiple pulmonary emboli with possible right heart strain per CT angiogram 2. Acute stroke, presenting with right sided aweakness and dysarthia 3. Atrial fibrillation 4. Significant alcohol abuse 5. Current every day smoker Plan: 1. Continue IV heparin drip for now 2. Await echocardiogram report 3. Consult occupational and physical therapy 4. Speech therapy on consult 5. Appreciate recommendations from cardiology 6. Appreciate recommendations from neurology 7. Further recommendations forthcoming if patient candidate/indication for EKOS based on echocardiogram and clinical course Thank you for this consultation, we'll continue to follow. The impression and plan of care has been dictated as directed. I performed a history and examination of this patient, discussed the same with the dictator. I agree with the dictator's note ,documented as a scribe. Any additional findings or plans will be noted.
[2022-03-13 11:04] LABS: Appearance,Urine Cloudy (Clear); Bacteria,Urine Occasional /hpf; Bilirubin,Urine Negative (Negative); Blood,Urine Large (Negative); Color,Urine Dark Brown; Glucose,Urine (UA) Negative (Negative); Ketones,Urine Negative (Negative); Leukocyte Esterase,Urine Small (Negative); Mucus,Urine Moderate /hpf; Nitrite,Urine Negative (Negative); PH, Urine 5.5 (5.0-8.0); Protein,Urine 1+ (Negative); RBC,Urine 29 /hpf (0-5); Squamous Epithelial Cell,Urine <1 /hpf (0-4); WBC,Urine 22 /hpf (0-5)
[2022-03-13 11:24] LABS: Calcium 8.4 mg/dL (8.4-10.2)
[2022-03-13 11:28] LABS: Potassium 5.3 mmol/L (3.5-5.1)
[2022-03-13] MEDS ORDERED: SODIUM CHLORIDE 0.9% 1,000 ML IV ONE ×2 (11:39→15:14)
--- NOTE | 2022-03-13 11:49 | US ---
EXAMINATION TYPE: US abd limited kidneys/bladder DATE OF EXAM: 03/13/2022 COMPARISON: NONE CLINICAL HISTORY: Elevated LFTs. EXAM MEASUREMENTS: Liver Length: 15.1 cm Gallbladder Wall: 0.2 cm CBD: not seen Right Kidney: 9.4 x 5.5 x 4.5cm Left Kidney: not seen ICU patient with extreme shortness of breath and rapid breathing, sitting upright for exam, done port able, unable to move closer to examiner or roll. Exam is markedly suboptimal. Pancreas: Obscured by bowel gas Liver: very limited visualization shows no obvious abnormality Gallbladder: very limited visualization shows no obvious abnormality CBD: very limited visualization shows no obvious abnormality Right Kidney: very limited visualization shows no obvious abnormality Left Kidney: not seen Bladder: wnl Suboptimal evaluation of pancreas on initial image. Visualized liver is heterogeneously hyperechoic. Evaluation for focal masses suboptimal due to the heterogeneity. No adjacent ascites. No obvious bili kei dilatation. Visualized portion of right kidney shows no gross hydronephrosis with poor visualizat ion of mid and lower pole level. Visualized portion of the gallbladder shows no internal gallstones o r surrounding fluid or abnormal gallbladder wall thickening. Left kidney shows no gross hydronephrosi s that was poorly seen. Spleen is not clearly identified. Lewis catheter decompresses bladder. IMPRESSION: Markedly Suboptimal study. Heterogeneous hyperechoic appearance of liver is likely on bas is of diffuse fatty infiltration and/or underlying hepatocellular disease.
--- NOTE | 2022-03-13 11:51 | P.NPCON ---
History of Present Illness - Reason for Consult acute renal failure - History of Present Illness Reason for consultation: Acute kidney injury History of present illness: The patient is a 56-year-old male seen in renal consultation for acute kidney injury. Unknown baseline renal function. Creatinine was 1.5 at admission and is 2.5 once today. Patient does not have a reliable historian. He has history of alcohol use. He presented with slurred speech and generalized weakness. He underwent CT angiogram on 03/12/2022 which showed scattered PE and pulmonary infarct. He was also noted to be in A. fib with RVR and is currently maintained on Cardizem drip. He is also on heparin drip. Blood pressure has been low in the systolic 80s to 90s. He is currently on 6 L nasal cannula. He is being followed by vascular surgery as well as pulmonology. I don't see any nonsteroidals and is on medication list. He denies any vomiting or diarrhea. Denies hematuria or dysuria. Currently is a Lewis catheter. Patient had good urine output overnight but the last 2 hours has been 10 and 25 mL. Denies abdominal pain. Vital signs are stable. Blood pressure in the lower side. General: Awake. No acute distress. HEENT: Head exam is unremarkable. On nasal cannula. LUNGS: Breath sounds decreased. HEART: Rate and Rhythm are regular. ABDOMEN: Soft, no distention. EXTREMITITES: No edema. Past Medical History Past Medical History: No Reported History History of Any Multi-Drug Resistant Organisms: None Reported Past Surgical History: No Surgical Hx Reported Past Anesthesia/Blood Transfusion Reactions: No Reported Reaction Past Psychological History: No Psychological Hx Reported Smoking Status: Former smoker Past Alcohol Use History: Abuse, Daily Past Drug Use History: None Reported - Past Family History Father Family Medical History: Myocardial Infarction ([place]) Additional Family Medical History / Comment(s): Pt states his father had "three heart attacks" Mother History Unknown: Yes Medications and Allergies Home Medications Medication Instructions Recorded Confirmed Type No Known Home Medications 03/12/22 03/12/22 History Allergies Allergy/AdvReac Type Severity Reaction Status Date / Time No Known Allergies Allergy Verified 03/12/22 15:57 Physical Exam Vitals: Vital Signs Temp Pulse Resp BP BP Pulse Ox 03/13/22 10:00 68 30 H 81/64 97 03/13/22 09:30 68 33 H 83/69 97 03/13/22 09:00 67 32 H 82/60 92 L 03/13/22 08:30 80 38 H 93/73 96 03/13/22 08:00 97.7 F 72 30 H 84/58 96 03/13/22 07:00 73 20 83/57 88 L 03/13/22 06:30 80 28 H 95/73 90 L 03/13/22 06:00 79 23 90/63 91 L 03/13/22 05:30 88 18 92/73 90 L 03/13/22 05:00 75 27 H 124/67 90 L 03/13/22 04:30 82 28 H 113/66 90 L 03/13/22 04:00 97.7 F 85 28 H 101/87 92 L 03/13/22 03:31 84 03/13/22 03:30 79 22 84/69 90 L 03/13/22 03:26 85 03/13/22 03:00 83 22 99/63 93 L 03/13/22 02:30 84 38 H 104/92 90 L 03/13/22 02:00 86 30 H 106/65 87 L 03/13/22 01:45 92 28 H 107/68 91 L 03/13/22 01:30 81 27 H 103/79 90 L 03/13/22 01:15 86 23 98/65 88 L 03/13/22 01:00 101 H 24 98/65 89 L 03/13/22 00:45 93 24 97/75 89 L 03/13/22 00:30 88 28 H 96/77 90 L 03/13/22 00:22 87 30 H 92/43 91 L 03/13/22 00:15 85 24 99/72 90 L 03/13/22 00:00 98.2 F 92 22 102/90 93 L 03/12/22 23:45 91 24 91/78 92 L 03/12/22 23:30 102 H 18 129/73 90 L 03/12/22 23:10 95 24 102/73 89 L 03/12/22 23:00 97 28 H 106/74 90 L 03/12/22 22:40 101 H 21 125/88 03/12/22 22:30 97.8 F 20 125/88 92 L 03/12/22 22:05 98.8 F 93 22 111/79 82 L 05/02/22 21:00 92 18 106/64 03/12/22 20:09 99 18 111/91 03/12/22 19:21 105 H 18 103/83 03/12/22 18:16 111 H 16 100/71 71 L 03/12/22 16:07 160 H 138/104 03/12/22 15:15 128 H 14 104/74 97 03/12/22 14:49 97.9 F 172 H 24 114/80 87 L Intake and Output 03/12/22 03/13/22 03/13/22 22:59 06:59 14:59 Intake Total 830.486 423.099 Output Total 2220 35 Balance -1389.514 388.099 Intake: IV 600 350 Dextrose 5% in Water 1, 200 000 ml @ 100 mls/hr IV . [id number] YESENIA with Sodium Bicarb (1 Meq/ml) 150 ml Rx#:[id number] Dextrose 5% in Water 1, 600 150 000 ml @ 75 mls/hr IV . [id number] YESENIA with Sodium Bicarb (1 Meq/ml) 100 ml Rx#:[id number] Intake, IV Titration 230.486 73.099 Amount Diltiazem 125 mg In 82 Sodium Chloride 0.9% 100 ml @ 10 MG/HR 10 mls/hr IV .[id number] YESENIA Rx#: [id number] Heparin Sod,Pork in 0.45% 148.486 73.099 NaCl 25,000 unit In 0.45 % NaCl 1 250ml.bag @ 18 UNITS/KG/HR 17.962 mls/hr IV .[id number] YESENIA Rx#: [id number] Output: Urine 1360 35 Post Void Residual 860 Other: Voiding Method Urinal Urinal # Voids 0 0 Weight 99.79 kg 86.5 kg Results - Lab Results Most recent lab results ABG pH 7.42 (7.35-7.45) 03/12/22 16:41 ABG pCO2 16 mmHg (35-45) L* 03/12/22 16:41 ABG pO2 109 mmHg (83-108) H 03/12/22 16:41 ABG HCO3 10 mmol/L (21-25) L* 03/12/22 16:41 ABG O2 Saturation 97.9 % (94-97) H 03/12/22 16:41 Calcium 8.4 mg/dL (8.4-10.2) 03/13/22 10:25 03/13/22 06:25 03/13/22 10:25 Assessment and Plan Plan: Assessment: 1. Acute kidney injury secondary to ATN secondary to hemodynamic instability. Creatinine was 1.5 on admission and is 2.5 today. Unknown baseline renal function. 2. A. fib with RVR maintain on Cardizem drip. 3. PE and pulmonary infarct maintained on heparin drip. 4. Metabolic acidosis secondary to acute kidney injury and lactic acidosis. 5. Hyperkalemia secondary to acute kidney injury and metabolic acidosis. Hemolyzed sample. 6. Alcohol abuse. 7. Acute CVA. Plan: Maintain bicarb drip at 100 mL an hour. 1 L normal saline bolus now due to elevated lactic acid level. Follow-up renal ultrasound. Check urinalysis. Avoid nephrotoxins. Continue to monitor renal function and urine output. May need vasopressor support if remains hypotensive. Follow-up echocardiogram. Repeat BMP at 5 PM. Repeat lactic acid level as well. Check CT of the abdomen and pelvis to rule out infarct. Thank you for the consultation. I will continue to follow the patient with you during his hospital stay.
--- NOTE | 2022-03-13 12:11 | P.CNPUL ---
History of Present Illness Consult date: 03/13/22 Requesting physician: Marianna Barksdale Reason for consult: hypoxemia, pulmonary embolism, abnormal CXR/CT, other (Critical care management) Chief complaint: Slurred speech, right-sided weakness History of present illness: This is a 56-year-old male patient with a history of heavy daily alcohol abuse, chronic and ongoing tobacco dependence. He presented to the emergency room yesterday stating he quit drinking about 6 weeks prior. Since that time he had been having on and off droopiness on the right side his face as well as slurred speech. He also noted some weakness in his right arm. The symptoms were waxing and waning until approximately 3 days prior to his arrival that it stayed per minute. He tripped on the right side of his face are not change and he remains with slurred and garbled speech. Prior to his arrival he had fallen and hit the front of his head. He denied any chest pain, palpitations or shortness of breath. Computed tomography scan of the head revealed a decreased attenuation in the left parietal lobe which could reflect an area of acute insult. No hemorrhagic transformation noted. CT angiogram of the head and neck revealed no significant abnormalities. Chest x-ray revealed no acute pulmonary process. CT angiogram revealed scattered filling defects most pronounced in the right involving the right upper, middle and lower lobes and segmental branches extending into the subsegmental branches. Additional subsegmental filling defects in the left upper lobe. There is a wedge-shaped area of consolidation within the right lower lobe, suspect pulmonary infarct. EKG revealed atrial fibrillation with rapid ventricular response. Today's chest x-ray revealed a stable wedge-shaped consolidation in the retroareolar lower lobe. Left lung remains clear. Mild cardiomegaly. The patient is seen today in consultation in the intensive care unit. He is currently sitting up in bed. Awake and alert. He is aphasic. Speech is quite garbled. Right-sided weakness noted. Right- sided facial droop. He is currently on a Cardizem drip at 10 mg per hour. Heparin drip per weight base protocol. D5W with 3 A of bicarb at 100 ML's per hour. White count 16.8. Hemoglobin 15.5. MCV 107.6. Sodium 139. Potassium 5.3. Chloride 103. Bicarb 11, up from 7. BUN 41. Creatinine 2.51. Lactic acid 14.9. Urine with 1+ protein, large blood high WBC. Occasional bacteria. Room air arterial blood gases have revealed a pO2 of 109, pCO2 of 16 and a pH of 7.42. AST 2512. ALT 1651. Ammonia level 35. Troponin negative 1. ProBNP 6360. Urine drug screen clean. Serum alcohol less than 10. Currently in a - 1.3 L balance. He has been placed in the CIAR protocol. Review of Systems REVIEW OF SYSTEMS: CONSTITUTIONAL: Denies any recent significant weight loss or weight gain. EYES: Denies change in vision. EARS, NOSE, MOUTH, THROAT: Denies headaches, denies sore throat. CARDIOVASCULAR: Denies chest pain, palpitations or syncopal episodes. RESPIRATORY: Denies shortness of breath, cough, congestion or hemoptysis. GASTROINTESTINAL: Denies change in appetite, denies abdominal pain GENITOURINARY: Denies hematuria, denies infections. MUSKULOSKELETAL: Denies pain, denies swelling. INTEGUMENTARY: Denies rash, denies eczema. NEUROLOGICAL: Positive for slurred, garbled speech, right-sidedarm and leg weakness. PSYCHIATRIC: Denies anxiety, denies depression. HEMATOLOGIC/LYMPHATIC: Denies anemia, denies enlarged lymph nodes. Past Medical History Past Medical History: No Reported History History of Any Multi-Drug Resistant Organisms: None Reported Past Surgical History: No Surgical Hx Reported Past Anesthesia/Blood Transfusion Reactions: No Reported Reaction Past Psychological History: No Psychological Hx Reported Smoking Status: Former smoker Past Alcohol Use History: Abuse, Daily Past Drug Use History: None Reported - Past Family History Father Family Medical History: Myocardial Infarction (MD) Additional Family Medical History / Comment(s): Pt states his father had "three heart attacks" Mother History Unknown: Yes Medications and Allergies Home Medications Medication Instructions Recorded Confirmed Type No Known Home Medications 03/12/22 03/12/22 History Allergies Allergy/AdvReac Type Severity Reaction Status Date / Time No Known Allergies Allergy Verified 03/12/22 15:57 Physical Exam Vitals: Vital Signs Temp Pulse Resp BP BP Pulse Ox 03/13/22 10:00 68 30 H 81/64 97 03/13/22 09:30 68 33 H 83/69 97 03/13/22 09:00 67 32 H 82/60 92 L 05/03/22 08:30 80 38 H 93/73 96 03/13/22 08:00 97.7 F 72 30 H 84/58 96 03/13/22 07:00 73 20 83/57 88 L 03/13/22 06:30 80 28 H 95/73 90 L 03/13/22 06:00 79 23 90/63 91 L 03/13/22 05:30 88 18 92/73 90 L 03/13/22 05:00 75 27 H 124/67 90 L 03/13/22 04:30 82 28 H 113/66 90 L 03/13/22 04:00 97.7 F 85 28 H 101/87 92 L 03/13/22 03:31 84 03/13/22 03:30 79 22 84/69 90 L 03/13/22 03:26 85 03/13/22 03:00 83 22 99/63 93 L 03/13/22 02:30 84 38 H 104/92 90 L 03/13/22 02:00 86 30 H 106/65 87 L 03/13/22 01:45 92 28 H 107/68 91 L 03/13/22 01:30 81 27 H 103/79 90 L 03/13/22 01:15 86 23 98/65 88 L 03/13/22 01:00 101 H 24 98/65 89 L 03/13/22 00:45 93 24 97/75 89 L 03/13/22 00:30 88 28 H 96/77 90 L 03/13/22 00:22 87 30 H 92/43 91 L 03/13/22 00:15 85 24 99/72 90 L 03/13/22 00:00 98.2 F 92 22 102/90 93 L 03/12/22 23:45 91 24 91/78 92 L 03/12/22 23:30 102 H 18 129/73 90 L 03/12/22 23:10 95 24 102/73 89 L 03/12/22 23:00 97 28 H 106/74 90 L 03/12/22 22:40 101 H 21 125/88 03/12/22 22:30 97.8 F 20 125/88 92 L 03/12/22 22:05 98.8 F 93 22 111/79 82 L 03/12/22 21:00 92 18 106/64 03/12/22 20:09 99 18 111/91 0522 19:21 105 H 18 103/83 03/12/22 18:16 111 H 16 100/71 71 L 03/12/22 16:07 160 H 138/104 03/12/22 15:15 128 H 14 104/74 97 03/12/22 14:49 97.9 F 172 H 24 114/80 87 L Intake and Output 03/12/22 03/13/22 03/13/22 22:59 06:59 14:59 Intake Total 830.486 423.099 Output Total 2220 35 Balance -1389.514 388.099 Intake: IV 600 350 Dextrose 5% in Water 1, 200 000 ml @ 100 mls/hr IV . [id number] YESENIA with Sodium Bicarb (1 Meq/ml) 150 ml Rx#:[id number] Dextrose 5% in Water 1, 600 150 000 ml @ 75 mls/hr IV . [id number] YESENIA with Sodium Bicarb (1 Meq/ml) 100 ml Rx#:[id number] Intake, IV Titration 230.486 73.099 Amount Diltiazem 125 mg In 82 Sodium Chloride 0.9% 100 ml @ 10 MG/HR 10 mls/hr IV .[id number] YESENIA Rx#: [id number] Heparin Sod,Pork in 0.45% 148.486 73.099 NaCl 25,000 unit In 0.45 % NaCl 1 250ml.bag @ 18 UNITS/KG/HR 17.962 mls/hr IV .[id number] YESENIA Rx#: [id number] Output: Urine 1360 35 Post Void Residual 860 Other: Voiding Method Urinal Urinal # Voids 0 0 Weight 99.79 kg 86.5 kg GENERAL EXAM: Alert, 56-year-old male patient, with garbled slurred speech, 6 L high flow nasal cannula, comfortable in no apparent distress. HEAD: Normocephalic. No evidence of right-sided facial droop. EYES: Normal reaction of pupils, equal size. NOSE: Clear with pink turbinates. THROAT: No erythema or exudates. NECK: No masses, no JVD. CHEST: No chest wall deformity. LUNGS: Equal air entry with no crackles, wheeze, rhonchi or dullness. CVS: S1 and S2 normal with no audible murmur, regular rhythm. ABDOMEN: No hepatosplenomegaly, normal bowel sounds, no guarding or rigidity. SPINE: No scoliosis or deformity SKIN: No rashes CENTRAL NERVOUS SYSTEM: No focal deficits, tone is normal in all 4 extremities. EXTREMITIES: Right-sided weakness. Bruising, abrasions on the bilateral knees There is no peripheral edema. No clubbing, no cyanosis. Peripheral pulses are intact. Results - Laboratory Findings CBC and BMP: 03/13/22 06:25 03/13/22 10:25 ABG ABG pH 7.42 (7.35-7.45) 03/12/22 16:41 ABG pCO2 16 mmHg (35-45) L* 03/12/22 16:41 ABG pO2 109 mmHg (83-108) H 03/12/22 16:41 ABG O2 Saturation 97.9 % (94-97) H 03/12/22 16:41 PT/INR, D-dimer PT 19.9 sec (9.0-12.0) H 03/12/22 15:15 INR 2.0 (<1.2) H 03/12/22 15:15 D-Dimer 15.21 mg/L FEU (<0.60) H 03/12/22 16:20 Abnormal lab findings: Abnormal Labs 03/12/22 03/12/22 03/12/22 15:15 15:15 15:15 WBC 10.8 H Hct 54.7 H MCV 101.2 H MCHC Neutrophils # 8.7 H Neutrophils # (Manual) Nucleated RBCs PT 19.9 H INR 2.0 H APTT D-Dimer ABG pCO2 ABG pO2 ABG HCO3 ABG Total CO2 ABG O2 Saturation Potassium Carbon Dioxide 13 L BUN 32 H Creatinine 1.50 H Glucose 119 H Plasma Lactic Acid Willian Total Bilirubin 7.2 H AST 2512 H ALT 1651 H Alkaline Phosphatase 134 H Ammonia Ur Specific [place] Urine Protein Urine Blood Ur Leukocyte Esterase Urine RBC Urine WBC Urine Bacteria Urine Mucus 03/12/22 03/12/22 03/12/22 16:20 16:41 17:22 WBC Hct MCV MCHC Neutrophils # Neutrophils # (Manual) Nucleated RBCs PT INR APTT D-Dimer 15.21 H ABG pCO2 16 L* ABG pO2 109 H ABG HCO3 10 L* ABG Total CO2 11 L ABG O2 Saturation 97.9 H Potassium Carbon Dioxide BUN Creatinine Glucose Plasma Lactic Acid Willian Total Bilirubin AST ALT Alkaline Phosphatase Ammonia 35 H Ur Specific [place] Urine Protein Urine Blood Ur Leukocyte Esterase Urine RBC Urine WBC Urine Bacteria Urine Mucus 03/13/22 03/13/22 03/13/22 01:43 06:25 06:25 WBC 16.8 H Hct MCV 107.6 H D MCHC 29.9 L Neutrophils # Neutrophils # (Manual) 15.12 H Nucleated RBCs 9 H PT INR APTT >200.0 H* D-Dimer ABG pCO2 ABG pO2 ABG HCO3 ABG Total CO2 ABG O2 Saturation Potassium 5.9 H Carbon Dioxide 7 L* BUN 38 H Creatinine 2.07 H Glucose Plasma Lactic Acid Willian Total Bilirubin AST ALT Alkaline Phosphatase Ammonia Ur Specific [place] Urine Protein Urine Blood Ur Leukocyte Esterase Urine RBC Urine WBC Urine Bacteria Urine Mucus 03/13/22 03/13/22 03/13/22 09:15 10:25 11:02 WBC Hct MCV MCHC Neutrophils # Neutrophils # (Manual) Nucleated RBCs PT INR APTT D-Dimer ABG pCO2 ABG pO2 ABG HCO3 ABG Total CO2 ABG O2 Saturation Potassium 5.3 H Carbon Dioxide 11 L BUN 41 H Creatinine 2.51 H Glucose 110 H Plasma Lactic Acid Willian 14.9 H* Total Bilirubin AST ALT Alkaline Phosphatase Ammonia Ur Specific [place] 1.050 H Urine Protein 1+ H Urine Blood Large H Ur Leukocyte Esterase Small H Urine RBC 29 H Urine WBC 22 H Urine Bacteria Occasional H Urine Mucus Moderate H - Diagnostic Findings Chest x-ray: image reviewed CT scan - chest: image reviewed Assessment and Plan Assessment: 1 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 and facial droop with dysphasia with symptoms for several days prior to arrival 2 Atrial fibrillation with rapid ventricular response 3 Acute hypoxemic respiratory failure secondary to bilateral pulmonary emboli with suspected pulmonary infarct in the right middle lobe, echocardiogram pending 4 Heavy daily alcohol use stating last drink 6 weeks ago 5 Transaminitis secondary to above 6 Lactic acidosis 7 Acute renal failure 8 Chronic and ongoing tobacco dependence Plan: The patient was seen and evaluated CAT scans, x-rays and labs reviewed Continue heparin drip Continue Cardizem drip Continue bicarb drip Continue the CIWA protocol Obtain ultrasound of the kidneys Obtain ultrasound of the liver Echocardiogram pending Continue to monitor closely here in the ICU We will continue to follow and make further recommendations based on his clinical status I have personally seen and examined the patient, performed the documentation and the assessment and plan as written. Number of minutes spent on the visit: 20.
--- NOTE | 2022-03-13 12:48 | P.HPIM ---
History of Present Illness 56-year-old male with heavy all call abuse history came in with complaints of right-sided facial droop and right arm weakness along with slurred speech. Patient had these symptoms going on and off for about 3 days. Patient is also found to be in atrial fibrillation. Patient denied any chest pain or shortness of breath but patient is is for incidentally found to have bilateral pulmonary emboli patient denied any leg pain. Patient has highly elevated liver enzymes related to heavy alcohol use. AST and ALT consistent with the alcoholic liver disease patient has elevated MCV as well. Patient was on Cardizem drip which is presently discontinued and cardiology evaluated the patient echo is pending. Patient the has significant metabolic acidosis, both anion gap and non-anion gap metabolic acidosis. I'll obtain lactic acid level. Patient probably has cirrhosis as well. She has a compensated metabolic alkalosis. REVIEW OF SYSTEMS: CONSTITUTIONAL: No fever, no malaise, no fatigue. HEENT: No recent visual problems or hearing problems. Denied any sore throat. CARDIOVASCULAR: No chest pain, orthopnea, PND, no palpitations, no syncope. PULMONARY: No shortness of breath, no cough, no hemoptysis. GASTROINTESTINAL: No diarrhea, no nausea, no vomiting, no abdominal pain. NEUROLOGICAL: As mentioned in HPI HEMATOLOGICAL: Denies any bleeding or petechiae. GENITOURINARY: Denies any burning micturition, frequency, or urgency. MUSCULOSKELETAL/RHEUMATOLOGICAL: Denies any joint pain, swelling, or any muscle pain. ENDOCRINE: Denies any polyuria or polydipsia. The rest of the 14-point review of systems is negative. PHYSICAL EXAMINATION: GENERAL: The patient is alert and oriented x3, not in any acute distress. Well developed, well nourished. HEENT: Pupils are round and equally reacting to light. EOMI. No scleral icterus. No conjunctival pallor. Normocephalic, atraumatic. No pharyngeal erythema. No thyromegaly. CARDIOVASCULAR: S1 and S2 present. No murmurs, rubs, or gallops. PULMONARY: Chest is clear to auscultation, no wheezing or crackles. ABDOMEN: Soft, nontender, nondistended, normoactive bowel sounds. No palpable organomegaly. MUSCULOSKELETAL: No joint swelling or deformity. EXTREMITIES: No cyanosis, clubbing, or pedal edema. NEUROLOGICAL: Patient has a strength of around 3/5 in right upper extremity facial droop on the right side and right lower extremity strength is within norm al limits. SKIN: No rashes. Assessment and plan -Acute several vascular accident probably secondary to atrial fibrillation patient the weakness is consistent with the stroke in the left cerebral h emisphere superolateral, MCA territory. Patient probably has embolic stroke. -Acute hypoxic respiratory failure secondary to pulmonary embolism patient is on oxygen at this time which will be continued patient troponins are not elevated echo is pending continue with IV heparin -Atrial fibrillation with rapid and regular rate presently rate is controlled at, Cardizem was discontinued continue with the anticoagulation -Alcohol abuse -Alcohol withdrawal for which patient is on Ativan 0 be protocol -Transaminase secondary to alcoholic hepatitis acute will monitor the liver enzymes did abdominal ultrasound was ordered -Anion gap metabolic acidosis with respiratory compensation: Secondary to most probably lactic acidosis from possible cirrhosis. -Acute renal failure probably prerenal azotemia and acute sugar necrosis. Patient was started on IV fluids. Next Nicotine abuse: Counseling was provided - DVT prophylaxis: IV heparin Past Medical History Past Medical History: No Reported History History of Any Multi-Drug Resistant Organisms: None Reported Past Surgical History: No Surgical Hx Reported Past Anesthesia/Blood Transfusion Reactions: No Reported Reaction Past Psychological History: No Psychological Hx Reported Smoking Status: Former smoker Past Alcohol Use History: Abuse, Daily Past Drug Use History: None Reported - Past Family History Father Family Medical History: Myocardial Infarction ([place]) Additional Family Medical History / Comment(s): Pt states his father had "three heart attacks" Mother History Unknown: Yes Medications and Allergies Home Medications Medication Instructions Recorded Confirmed Type No Known Home Medications 03/12/22 03/12/22 History Allergies Allergy/AdvReac Type Severity Reaction Status Date / Time No Known Allergies Allergy Verified 03/12/22 15:57 Physical Exam Vitals: Vital Signs Temp Pulse Resp BP BP Pulse Ox 03/13/22 10:00 68 30 H 81/64 97 03/13/22 09:30 68 33 H 83/69 97 03/13/22 09:00 67 32 H 82/60 92 L 03/13/22 08:30 80 38 H 93/73 96 03/13/22 08:00 97.7 F 72 30 H 84/58 96 03/13/22 07:00 73 20 83/57 88 L 03/13/22 06:30 80 28 H 95/73 90 L 05/03/22 06:00 79 23 90/63 91 L 03/13/22 05:30 88 18 92/73 90 L 03/13/22 05:00 75 27 H 124/67 90 L 03/13/22 04:30 82 28 H 113/66 90 L 03/13/22 04:00 97.7 F 85 28 H 101/87 92 L 03/13/22 03:31 84 03/13/22 03:30 79 22 84/69 90 L 03/13/22 03:26 85 03/13/22 03:00 83 22 99/63 93 L 03/13/22 02:30 84 38 H 104/92 90 L 03/13/22 02:00 86 30 H 106/65 87 L 03/13/22 01:45 92 28 H 107/68 91 L 03/13/22 01:30 81 27 H 103/79 90 L 03/13/22 01:15 86 23 98/65 88 L 03/13/22 01:00 101 H 24 98/65 89 L 03/13/22 00:45 93 24 97/75 89 L 03/13/22 00:30 88 28 H 96/77 90 L 03/13/22 00:22 87 30 H 92/43 91 L 03/13/22 00:15 85 24 99/72 90 L 03/13/22 00:00 98.2 F 92 22 102/90 93 L 03/12/22 23:45 91 24 91/78 92 L 03/12/22 23:30 102 H 18 129/73 90 L 03/12/22 23:10 95 24 102/73 89 L 03/12/22 23:00 97 28 H 106/74 90 L 03/12/22 22:40 101 H 21 125/88 03/12/22 22:30 97.8 F 20 125/88 92 L 03/12/22 22:05 98.8 F 93 22 111/79 82 L 03/12/22 21:00 92 18 106/64 03/12/22 20:09 99 18 111/91 03/12/22 19:21 105 H 18 103/83 03/12/22 18:16 111 H 16 100/71 71 L 03/12/22 16:07 160 H 138/104 03/12/22 15:15 128 H 14 104/74 97 03/12/22 14:49 97.9 F 172 H 24 114/80 87 L Intake and Output 03/12/22 03/13/22 03/13/22 22:59 06:59 14:59 Intake Total 830.486 787.001 Output Total 2220 65 Balance -1389.514 722.001 Intake: IV 600 550 Dextrose 5% in Water 1, 400 000 ml @ 100 mls/hr IV . [id number] YESENIA with Sodium Bicarb (1 Meq/ml) 150 ml Rx#:[id number] Dextrose 5% in Water 1, 600 150 000 ml @ 75 mls/hr IV . [id number] YESENIA with Sodium Bicarb (1 Meq/ml) 100 ml Rx#:[id number] Intake, IV Titration 230.486 237.001 Amount Diltiazem 125 mg In 82 116.5 Sodium Chloride 0.9% 100 ml @ 10 MG/HR 10 mls/hr IV .[id number] YESENIA Rx#: [id number] Heparin Sod,Pork in 0.45% 148.486 120.501 NaCl 25,000 unit In 0.45 % NaCl 1 250ml.bag @ 18 UNITS/KG/HR 17.962 mls/hr IV .[id number] YESENIA Rx#: [id number] Output: Urine 1360 65 Post Void Residual 860 Other: Voiding Method Urinal Urinal # Voids 0 0 Weight 99.79 kg 86.5 kg Results CBC & Chem 7: 03/13/22 06:25 03/13/22 10:25 Labs: Abnormal Lab Results - Last 24 Hours (Table) 03/12/22 03/12/22 03/12/22 Range/Units 15:15 15:15 15:15 WBC 10.8 H (3.8-10.6) k/uL Hct 54.7 H (39.0-53.0) % MCV 101.2 H (80.0-100.0) fL MCHC (31.0-37.0) g/dL Neutrophils # 8.7 H (1.3-7.7) k/uL Neutrophils # (Manual) (1.3-7.7) k/uL Nucleated RBCs (0-0) /100 WBC PT 19.9 H (9.0-12.0) sec INR 2.0 H (<1.2) APTT (22.0-30.0) sec D-Dimer (<0.60) mg/L FEU ABG pCO2 (35-45) mmHg ABG pO2 (83-108) mmHg ABG HCO3 (21-25) mmol/L ABG Total CO2 (19-24) mmol/L ABG O2 Saturation (94-97) % Potassium (3.5-5.1) mmol/L Carbon Dioxide 13 L (22-30) mmol/L BUN 32 H (9-20) mg/dL Creatinine 1.50 H (0.66-1.25) mg/dL Glucose 119 H (74-99) mg/dL Plasma Lactic Acid Willian (0.7-2.0) mmol/L Total Bilirubin 7.2 H (0.2-1.3) mg/dL AST 2512 H (17-59) U/L ALT 1651 H (4-49) U/L Alkaline Phosphatase 134 H (38-126) U/L Ammonia (<30) umol/L Ur Specific [place] (1.001-1.035) Urine Protein (Negative) Urine Blood (Negative) Ur Leukocyte Esterase (Negative) Urine RBC (0-5) /hpf Urine WBC (0-5) /hpf Urine Bacteria (None) /hpf Urine Mucus (None) /hpf 03/12/22 03/12/22 03/12/22 Range/Units 16:20 16:41 17:22 WBC (3.8-10.6) k/uL Hct (39.0-53.0) % MCV (80.0-100.0) fL MCHC (31.0-37.0) g/dL Neutrophils # (1.3-7.7) k/uL Neutrophils # (Manual) (1.3-7.7) k/uL Nucleated RBCs (0-0) /100 WBC PT (9.0-12.0) sec INR (<1.2) APTT (22.0-30.0) sec D-Dimer 15.21 H (<0.60) mg/L FEU ABG pCO2 16 L* (35-45) mmHg ABG pO2 109 H (83-108) mmHg ABG HCO3 10 L* (21-25) mmol/L ABG Total CO2 11 L (19-24) mmol/L ABG O2 Saturation 97.9 H (94-97) % Potassium (3.5-5.1) mmol/L Carbon Dioxide (22-30) mmol/L BUN (9-20) mg/dL Creatinine (0.66-1.25) mg/dL Glucose (74-99) mg/dL Plasma Lactic Acid Willian (0.7-2.0) mmol/L Total Bilirubin (0.2-1.3) mg/dL AST (17-59) U/L ALT (4-49) U/L Alkaline Phosphatase (38-126) U/L Ammonia 35 H (<30) umol/L Ur Specific [place] (1.001-1.035) Urine Protein (Negative) Urine Blood (Negative) Ur Leukocyte Esterase (Negative) Urine RBC (0-5) /hpf Urine WBC (0-5) /hpf Urine Bacteria (None) /hpf Urine Mucus (None) /hpf 03/13/22 03/13/22 03/13/22 Range/Units 01:43 06:25 06:25 WBC 16.8 H (3.8-10.6) k/uL Hct (39.0-53.0) % MCV 107.6 H D (80.0-100.0) fL MCHC 29.9 L (31.0-37.0) g/dL Neutrophils # (1.3-7.7) k/uL Neutrophils # (Manual) 15.12 H (1.3-7.7) k/uL Nucleated RBCs 9 H (0-0) /100 WBC PT (9.0-12.0) sec INR (<1.2) APTT >200.0 H* (22.0-30.0) sec D-Dimer (<0.60) mg/L FEU ABG pCO2 (35-45) mmHg ABG pO2 (83-108) mmHg ABG HCO3 (21-25) mmol/L ABG Total CO2 (19-24) mmol/L ABG O2 Saturation (94-97) % Potassium 5.9 H (3.5-5.1) mmol/L Carbon Dioxide 7 L* (22-30) mmol/L BUN 38 H (9-20) mg/dL Creatinine 2.07 H (0.66-1.25) mg/dL Glucose (74-99) mg/dL Plasma Lactic Acid Willian (0.7-2.0) mmol/L Total Bilirubin (0.2-1.3) mg/dL AST (17-59) U/L ALT (4-49) U/L Alkaline Phosphatase (38-126) U/L Ammonia (<30) umol/L Ur Specific [place] (1.001-1.035) Urine Protein (Negative) Urine Blood (Negative) Ur Leukocyte Esterase (Negative) Urine RBC (0-5) /hpf Urine WBC (0-5) /hpf Urine Bacteria (None) /hpf Urine Mucus (None) /hpf 03/13/22 03/13/22 03/13/22 Range/Units 09:15 10:25 10:25 WBC (3.8-10.6) k/uL Hct (39.0-53.0) % MCV (80.0-100.0) fL MCHC (31.0-37.0) g/dL Neutrophils # (1.3-7.7) k/uL Neutrophils # (Manual) (1.3-7.7) k/uL Nucleated RBCs (0-0) /100 WBC PT (9.0-12.0) sec INR (<1.2) APTT 185.7 H* (22.0-30.0) sec D-Dimer (<0.60) mg/L FEU ABG pCO2 (35-45) mmHg ABG pO2 (83-108) mmHg ABG HCO3 (21-25) mmol/L ABG Total CO2 (19-24) mmol/L ABG O2 Saturation (94-97) % Potassium 5.3 H (3.5-5.1) mmol/L Carbon Dioxide 11 L (22-30) mmol/L BUN 41 H (9-20) mg/dL Creatinine 2.51 H (0.66-1.25) mg/dL Glucose 110 H (74-99) mg/dL Plasma Lactic Acid Willian (0.7-2.0) mmol/L Total Bilirubin (0.2-1.3) mg/dL AST (17-59) U/L ALT (4-49) U/L Alkaline Phosphatase (38-126) U/L Ammonia (<30) umol/L Ur Specific [place] 1.050 H (1.001-1.035) Urine Protein 1+ H (Negative) Urine Blood Large H (Negative) Ur Leukocyte Esterase Small H (Negative) Urine RBC 29 H (0-5) /hpf Urine WBC 22 H (0-5) /hpf Urine Bacteria Occasional H (None) /hpf Urine Mucus Moderate H (None) /hpf 03/13/22 Range/Units 11:02 WBC (3.8-10.6) k/uL Hct (39.0-53.0) % MCV (80.0-100.0) fL MCHC (31.0-37.0) g/dL Neutrophils # (1.3-7.7) k/uL Neutrophils # (Manual) (1.3-7.7) k/uL Nucleated RBCs (0-0) /100 WBC PT (9.0-12.0) sec INR (<1.2) APTT (22.0-30.0) sec D-Dimer (<0.60) mg/L FEU ABG pCO2 (35-45) mmHg ABG pO2 (83-108) mmHg ABG HCO3 (21-25) mmol/L ABG Total CO2 (19-24) mmol/L ABG O2 Saturation (94-97) % Potassium (3.5-5.1) mmol/L Carbon Dioxide (22-30) mmol/L BUN (9-20) mg/dL Creatinine (0.66-1.25) mg/dL Glucose (74-99) mg/dL Plasma Lactic Acid Willian 14.9 H* (0.7-2.0) mmol/L Total Bilirubin (0.2-1.3) mg/dL AST (17-59) U/L ALT (4-49) U/L Alkaline Phosphatase (38-126) U/L Ammonia (<30) umol/L Ur Specific [place] (1.001-1.035) Urine Protein (Negative) Urine Blood (Negative) Ur Leukocyte Esterase (Negative) Urine RBC (0-5) /hpf Urine WBC (0-5) /hpf Urine Bacteria (None) /hpf Urine Mucus (None) /hpf Thrombosis Risk Factor Assmnt - Choose All That Apply Any of the Below Risk Factors Present?: Yes Each Factor Represents 1 point: Age 41-60 years, Obesity (BMI >25) Other congenital or acquired thrombophilia - If yes, enter type in comment: No Each Risk Factor Represents 5 Points: Stroke (< 1 month) Thrombosis Risk Factor Assessment Total Risk Factor Score: 7 Thrombosis Risk Factor Assessment Level: High Risk
[2022-03-13] MEDS: SODIUM CHLORIDE 0.45% 1,000 ML IV SCH ×2 (13:45→23:24)
[2022-03-13 13:49] VITALS: BMI 25.8
--- NOTE | 2022-03-13 15:22 | CA ---
Transthoracic Echo Report Name: Brian Patiño Age: 56 Gender: M : 1965 Exam Date: 03/13/2022 07:50 Exam Location: [facility] Ht (in): 71 Wt (lb): 190 Ordering Physician: Hay Chaparro MD Attending/Referring Phys: Retail Sales Merchandiser Valentina Carreno, ROSIE Procedure CPT: Indications: Pulmonary Embolism Cardiac Hx: Hx of cva, afib and alcohol abuse. Technical Quality: Good Contrast 1: Lumason Total Dose (mL): .5 Contrast 2: Total Dose (mL): MEASUREMENTS (Male / Female) Normal Values 2D ECHO LV Diastolic Diameter PLAX 5.4 cm 4.2 - 5.9 / 3.9 - 5.3 cm LV Systolic Diameter PLAX 4.7 cm IVS Diastolic Thickness 1.0 cm 0.6 - 1.0 / 0.6 - 0.9 cm LVPW Diastolic Thickness 1.0 cm 0.6 - 1.0 / 0.6 - 0.9 cm LV Relative Wall Thickness 0.4 RV Internal Dim ED PLAX 3.1 cm LA Volume 59.0 cm??? 18 - 58 / 22 - 52 cm??? M-MODE Aortic Root Diameter MM 3.3 cm LA Systolic Diameter MM 3.5 cm LA Ao Ratio MM 1.1 MV E Point Septal Separation 1.7 cm AV Cusp Separation MM 2.3 cm DOPPLER AV Peak Velocity 144.6 cm/s AV Peak Gradient 8.4 mmHg MR Peak Velocity 210.5 cm/s MR Peak Gradient 17.7 mmHg TR Peak Velocity 236.1 cm/s TR Peak Gradient 22.3 mmHg Right Ventricular Systolic Press 26.2 mmHg FINDINGS Left Ventricle Left ventricular cavity size normal. Global hypokinesis. Left ventricular ejection fraction is estimated at 20-25 %. Findings suspicious for left ventricular mural thrombus. Right Ventricle The right ventricle is normal in size and function. Right Atrium The right atrium is normal in size. Left Atrium The left atrium is normal in size. Mitral Valve Structurally normal mitral valve without significant stenosis or prolapse. There is a trace of mitral regurgitation. Aortic Valve Structurally normal aortic valve without significant sclerosis or stenosis. There is no aortic regurgitation. Tricuspid Valve Structurally normal tricuspid valve without significant stenosis. Pulmonary artery systolic pressure is normal. Trace tricuspid regurgitation. Pulmonic Valve Structurally normal pulmonic valve without significant stenosis. There is no pulmonic regurgitation. Pericardium Normal pericardium without effusion. Aorta Normal aortic root dimension. CONCLUSIONS Reduced LV systolic function, possible LV apical thrombus Previewed by: Dr. John Mercado MD (Electronically Signed) Final Date: 13 Mar 2022 15:21
[2022-03-13 15:42] LABS: Hepatitis A Antibody IgM Nonreactive (Nonreactive); Hepatitis B Core IgM Nonreactive (Nonreactive); Hepatitis B Surface Antigen Nonreactive (Nonreactive); Hepatitis C IgG Antibody Nonreactive (Nonreactive)
--- NOTE | 2022-03-13 15:49 | P.CNNES ---
History of Present Illness Consult date: 03/13/22 Requesting physician: Hay Chaparro Reason for Consult: CVA History of Present Illness: Patient is a 56-year-old right-handed male came to the Hospital ambulance yesterday at 2:25 PM. EMS flow sheet not available in the chart. Patient's cousin was also present today. Patient states that he developed problems with his speech and right-sided weakness about 5 days ago, which continued to get worse. 3 days ago he fell and could not get up. As the neighbors did not see him for a few days, they called the police, who broke in and found him laying on the floor with right-sided weakness and slurred speech. Apparently he was laying on the floor for about 3 days. Patient lives by himself. He does have children but they're grown up. Vital signs on arrival blood pressure 114/80, pulse 72, temperature 97.9. Blood test shows normal hemoglobin, MCV elevated 101.2., Platelets 168. Electrolytes are normal, BUN 32 creatinine 1.50. AST is elevated 2012, ALT 1651. Troponin negative. Ammonia is mildly elevated 35. Blood alcohol level less than 10. Urine drug screen negative. UA shows large amount of blood. Small amount of leukocyte esterase. CT head showed decreased attenuation left parietal lobe whi ch could reflect an area of acute insult. Correlate clinically. No hemorrhagic transformation. I personally reviewed computed tomography scan of the head and agree with the findings. It appears more subacute infarct in the deep left parietal region. CTA of head and neck revealed no significant stenosis. EKG shows atrial fibrillation with rapid ventricular rate. Chest x-ray showed no acute process. CTA of the chest showed scattered pulmonary emboli which are most pronounced on the right. There is signs of right heart strain with reflux of contrast into the IVC. Wedge shaped area within the right lower lobe likely representing pulmonary infarct. Patient denies any history of hypertension or diabetes. He is light smoker for last 50 years. He has been drinking heavily about 15 beers a day for last 4 years. Patient denies any history of DVTs or any strokes in the past. Patient does not take any antiplatelets or difficult lens at home. Review of Systems Patient absolutely denies any headache. No problem with the vision. No chest pain and abdominal pain. All other areas is unremarkable except as mentioned in HPI. Past Medical History Past Medical History: No Reported History History of Any Multi-Drug Resistant Organisms: None Reported Past Surgical History: No Surgical Hx Reported Past Anesthesia/Blood Transfusion Reactions: No Reported Reaction Past Psychological History: No Psychological Hx Reported Smoking Status: Former smoker Past Alcohol Use History: Abuse, Daily Past Drug Use History: None Reported - Past Family History Father Family Medical History: Myocardial Infarction ([place]) Additional Family Medical History / Comment(s): Pt states his father had "three heart attacks" Mother History Unknown: Yes Medications and Allergies Home Medications Medication Instructions Recorded Confirmed Type No Known Home Medications 03/12/22 03/12/22 History Allergies Allergy/AdvReac Type Severity Reaction Status Date / Time No Known Allergies Allergy Verified 03/12/22 15:57 Physical Examination - Vital Signs Vital Signs: Vital Signs Temp Pulse Resp BP BP Pulse Ox 03/13/22 13:00 63 33 H 102/62 96 03/13/22 12:30 71 28 H 97/60 95 03/13/22 12:00 97.8 F 72 34 H 95/65 95 03/13/22 11:30 67 36 H 93/71 93 L 03/13/22 11:00 84 36 H 90/64 95 03/13/22 10:30 74 31 H 77/57 94 L 03/13/22 10:00 68 30 H 81/64 97 03/13/22 09:30 68 33 H 83/69 97 03/13/22 09:00 67 32 H 82/60 92 L 03/13/22 08:30 80 38 H 93/73 96 03/13/22 08:00 97.7 F 72 30 H 84/58 96 03/13/22 07:00 73 20 83/57 88 L 03/13/22 06:30 80 28 H 95/73 90 L 03/13/22 06:00 79 23 90/63 91 L 03/13/22 05:30 88 18 92/73 90 L 03/13/22 05:00 75 27 H 124/67 90 L 03/13/22 04:30 82 28 H 113/66 90 L 03/13/22 04:00 97.7 F 85 28 H 101/87 92 L 03/13/22 03:31 84 03/13/22 03:30 79 22 84/69 90 L 03/13/22 03:26 85 05/03/22 03:00 83 22 99/63 93 L 03/13/22 02:30 84 38 H 104/92 90 L 03/13/22 02:00 86 30 H 106/65 87 L 03/13/22 01:45 92 28 H 107/68 91 L 03/13/22 01:30 81 27 H 103/79 90 L 03/13/22 01:15 86 23 98/65 88 L 03/13/22 01:00 101 H 24 98/65 89 L 03/13/22 00:45 93 24 97/75 89 L 03/13/22 00:30 88 28 H 96/77 90 L 03/13/22 00:22 87 30 H 92/43 91 L 03/13/22 00:15 85 24 99/72 90 L 03/13/22 00:00 98.2 F 92 22 102/90 93 L 03/12/22 23:45 91 24 91/78 92 L 03/12/22 23:30 102 H 18 129/73 90 L 03/12/22 23:10 95 24 102/73 89 L 03/12/22 23:00 97 28 H 106/74 90 L 03/12/22 22:40 101 H 21 125/88 03/12/22 22:30 97.8 F 20 125/88 92 L 03/12/22 22:05 98.8 F 93 22 111/79 82 L 03/12/22 21:00 92 18 106/64 03/12/22 20:09 99 18 111/91 03/12/22 19:21 105 H 18 103/83 03/12/22 18:16 111 H 16 100/71 71 L 03/12/22 16:07 160 H 138/104 03/12/22 15:15 128 H 14 104/74 97 03/12/22 14:49 97.9 F 172 H 24 114/80 87 L Intake and Output 03/12/22 03/13/22 03/13/22 22:59 06:59 14:59 Intake Total 595.824 8210.001 Output Total 2220 75 Balance -5694.856 4268.001 Intake: IV 600 1650 Dextrose 5% in Water 1, 500 000 ml @ 100 mls/hr IV . [id number] YESENIA with Sodium Bicarb (1 Meq/ml) 150 ml Rx#:[id number] Dextrose 5% in Water 1, 600 150 000 ml @ 75 mls/hr IV . [id number] YESENIA with Sodium Bicarb (1 Meq/ml) 100 ml Rx#:[id number] Sodium Chloride 0.9% 1, 1000 000 ml @ 999 mls/hr IV . Q1H1M ONE Rx#:[id number] Intake, IV Titration 230.486 237.001 Amount Diltiazem 125 mg In 82 116.5 Sodium Chloride 0.9% 100 ml @ 10 MG/HR 10 mls/hr IV .[id number] YESENIA Rx#: [id number] Heparin Sod,Pork in 0.45% 148.486 120.501 NaCl 25,000 unit In 0.45 % NaCl 1 250ml.bag @ 18 UNITS/KG/HR 17.962 mls/hr IV .[id number] YESENIA Rx#: [id number] Output: Urine 1360 75 Post Void Residual 860 Other: Voiding Method Urinal Indwelling Catheter # Voids 0 0 Weight 99.79 kg 86.5 kg 86.5 kg Patient is a middle aged male, in no acute distress. He is slightly tachypneic. Usually gets short of breath. Patient is alert awake. Patient states is the month of February, but then did say it was the fifth month. Regarding year, he continues to see February. He knows that he is in [facility] would not tell the CT he is in. He knows name of the current president. He can name and repeat very well. He has at least moderate slurred speech. Patient was able to point to the window on the right, and feeling on the top. However the door was on the left and he continued to point to the window which was on the right side. He says that he is 36 years old. Attention, concentration and fund of knowledge is limited due to aphasia/dysarthria. On cranial examination, pupils are equal, round and reacting to light, visual benavides are full on confrontation, with no neglect. His extraocular muscles are intact with no nystagmus. Patient has right facial weakness, central type. His tongue protrudes to the midline. Palatal elevation and sensation normal, hearing normal, facial sensation normal. Shoulder shrug decreased on the right. On muscle strength testing, there is right pronator drift, and the arm hits the bed. The strength is normal in the left arm and left leg. On the right side his deltoid is 4+, biceps 4, triceps 4, social group worker is 3-, hip flexion is 4-, ankle is 4-. Deep tendon reflexes are 1 in the upper limbs, 1 at the right knee, 2+ on the left knee. Ankles are 1+ and plantar is up on the right whereas probable down on the left. Sensory to light touch is decreased in the right upper extremity as compared to the left. However the lower extremities it was contralateral, feeling better in the right lower as compared to the left lower. Cerebellar function could not be checked on the right side. No ataxia on the left. Tone and bulk of muscles normal. Gait not able to be checked. On general examination, there is no carotid bruit or murmur, S1-S2 audible. Abdomen is soft nontender. No organomegaly. Bowel sounds present. Chest is clear. Peripheral pulses are present. No edema. Results - Laboratory Findings CBC and BMP: 03/13/22 06:25 03/13/22 10:25 Abnormal Lab Findings: Abnormal Labs 03/12/22 03/12/22 03/12/22 15:15 15:15 15:15 WBC 10.8 H Hct 54.7 H MCV 101.2 H MCHC Neutrophils # 8.7 H Neutrophils # (Manual) Nucleated RBCs PT 19.9 H INR 2.0 H APTT D-Dimer ABG pCO2 ABG pO2 ABG HCO3 ABG Total CO2 ABG O2 Saturation Potassium Carbon Dioxide 13 L BUN 32 H Creatinine 1.50 H Glucose 119 H Plasma Lactic Acid Willian Total Bilirubin 7.2 H AST 2512 H ALT 1651 H Alkaline Phosphatase 134 H Ammonia Ur Specific [place] Urine Protein Urine Blood Ur Leukocyte Esterase Urine RBC Urine WBC Urine Bacteria Urine Mucus 03/12/22 03/12/22 03/12/22 16:20 16:41 17:22 WBC Hct MCV MCHC Neutrophils # Neutrophils # (Manual) Nucleated RBCs PT INR APTT D-Dimer 15.21 H ABG pCO2 16 L* ABG pO2 109 H ABG HCO3 10 L* ABG Total CO2 11 L ABG O2 Saturation 97.9 H Potassium Carbon Dioxide BUN Creatinine Glucose Plasma Lactic Acid Willian Total Bilirubin AST ALT Alkaline Phosphatase Ammonia 35 H Ur Specific [place] Urine Protein Urine Blood Ur Leukocyte Esterase Urine RBC Urine WBC Urine Bacteria Urine Mucus 03/13/22 03/13/2203/13/22 01:43 06:25 06:25 WBC 16.8 H Hct MCV 107.6 H D MCHC 29.9 L Neutrophils # Neutrophils # (Manual) 15.12 H Nucleated RBCs 9 H PT INR APTT >200.0 H* D-Dimer ABG pCO2 ABG pO2 ABG HCO3 ABG Total CO2 ABG O2 Saturation Potassium 5.9 H Carbon Dioxide 7 L* BUN 38 H Creatinine 2.07 H Glucose Plasma Lactic Acid Willian Total Bilirubin AST ALT Alkaline Phosphatase Ammonia Ur Specific [place] Urine Protein Urine Blood Ur Leukocyte Esterase Urine RBC Urine WBC Urine Bacteria Urine Mucus 03/13/22 03/13/22 03/13/22 09:15 10:25 10:25 WBC Hct MCV MCHC Neutrophils # Neutrophils # (Manual) Nucleated RBCs PT INR APTT 185.7 H* D-Dimer ABG pCO2 ABG pO2 ABG HCO3 ABG Total CO2 ABG O2 Saturation Potassium 5.3 H Carbon Dioxide 11 L BUN 41 H Creatinine 2.51 H Glucose 110 H Plasma Lactic Acid Willian Total Bilirubin AST ALT Alkaline Phosphatase Ammonia Ur Specific [place] 1.050 H Urine Protein 1+ H Urine Blood Large H Ur Leukocyte Esterase Small H Urine RBC 29 H Urine WBC 22 H Urine Bacteria Occasional H Urine Mucus Moderate H 03/13/22 11:02 WBC Hct MCV MCHC Neutrophils # Neutrophils # (Manual) Nucleated RBCs PT INR APTT D-Dimer ABG pCO2 ABG pO2 ABG HCO3 ABG Total CO2 ABG O2 Saturation Potassium Carbon Dioxide BUN Creatinine Glucose Plasma Lactic Acid Willian 14.9 H* Total Bilirubin AST ALT Alkaline Phosphatase Ammonia Ur Specific [place] Urine Protein Urine Blood Ur Leukocyte Esterase Urine RBC Urine WBC Urine Bacteria Urine Mucus Assessment and Plan Assessment: * Acute ischemic stroke involving left deep parietal region, likely embolic * New-onset/diagnosed atrial fibrillation * Pulmonary embolism. * Acute kidney injury * Macrocytosis * Acute hepatic injury * History of alcoholism. Plan: * Patient has been started on heparin drip. His last PTT is 185. Suggest keeping PTT in the therapeutic range (as per protocol). Patient would need long-term anticoagulation. * 2-D echo with bubble study to rule out PFO. * CTA of head and neck showed no significant stenosis. * PT OT, speech therapy. * For DVT prophylaxis patient on IV heparin. * Hemoglobin A1c, lipid panel, B12, folate (due to macrocytosis). * Continue thiamine, multivitamins. Watch for alcohol withdrawal. * Medical management as per IM, critical care and other specialties. * Neurology will follow. Thank you for the consult.
--- NOTE | 2022-03-13 16:15 | CT ---
EXAMINATION TYPE: CT abdomen pelvis wo con DATE OF EXAM: 03/13/2022 COMPARISON: 03/12/2022 HISTORY: Abdominal pain. CT DLP: 1060.4 mGycm Automated exposure control for dose reduction was used. TECHNIQUE: Helical acquisition of images was performed from the lung bases through the pelvis. FINDINGS: Exam severely limited due to extreme motion artifact. LUNG BASES: White shaped consolidation peripheral margin right middle lobe correlate for pulmonary in farct. Pneumonia also in the differential diagnosis.. Heart enlarged. LIVER/GB: Of vicarious excretion of contrast through the gallbladder noted.. PANCREAS: No significant abnormality is seen. SPLEEN: No significant abnormality is seen. ADRENALS: No significant abnormality is seen. KIDNEYS: Kidneys are hyperdense despite this study being noncontrast. This could be retained contrast from prior exam correlate for renal dysfunction. No hydronephrosis or nephrolithiasis. URINARY BLADDER: No significant abnormality is seen. ADENOPATHY: None visualized. OSSEOUS STRUCTURES: Scoliosis with severe multilevel degenerative disc disease. Suspect multilevel f oraminal encroachment and canal stenosis. Arthropathy of the hips. BOWEL: Bowel gas pattern is nonspecific. No oral contrast was administered and therefore the exam is limited. Air is seen throughout large and small bowel loops in a nonspecific pattern. Consider ileus . OTHER: Small amount of free fluid in the pelvis. May be somewhat hyperdense and contains a hemorrhagi c component correlate clinically. Bladder appears somewhat dense which may be related to previous con trast administration. There is a Lewis catheter noted. Calcifications in the pelvis. The outside the bladder. Mild soft tissue edema or anasarca incidentally noted. IMPRESSION: Severely limited exam nearly nondiagnostic due to extreme motion artifact. 1. Wedge-shaped consolidation right one would be compatible with pulmonary infarct given patient's hi story of pulmonary embolism. 2. Nonspecific gas pattern with air seen throughout several large and small bowel loops. No transitio n point seen. Correlate for ileus. If there is concern for ischemic bowel correlate with lactic acid. 3. Bladder is hypodense with Lewis catheter which may be related from previous contrast administratio n for recent CT scan. However, correlate for renal dysfunction or failure with persistent nephrogram and renal retention of contrast. 4. Small amount of free fluid in the pelvis some of which appears slightly hyperdense and may have a hemorrhagic component. Correlate with serum hemoglobin /hematocrit.
[2022-03-13 19:56] LABS: HCT 48.3 % (39.0-53.0); HGB 14.5 gm/dL (13.0-17.5); Hypochromasia Slight; MCH 30.7 pg (25.0-35.0); Macrocytosis Slight; Platelet Count 194 k/uL (150-450); RBC 4.72 m/uL (4.30-5.90); RDW 13.5 % (11.5-15.5)
[2022-03-13 20:17] LABS: African American GFR (CKD) 23 (>60 ml/min/1.73 sqM); Anion Gap 25 mmol/L; Blood Urea Nitrogen 45 mg/dL (9-20); Calcium 7.6 mg/dL (8.4-10.2); Carbon Dioxide 10 mmol/L (22-30); Chloride 101 mmol/L (98-107); Glucose 126 mg/dL (74-99); Non-African American GFR(CKD) 20 (>60 ml/min/1.73 sqM); Sodium 136 mmol/L (137-145)
[2022-03-13 20:24] LABS: MCV 102.3 fL (80.0-100.0)
[2022-03-13 20:59] LABS: Band Neutrophils % 5 %; Lymphocytes # (M) 1.05 k/uL (1.0-4.8); Monocytes # (M) 0.53 k/uL (0-1.0); Neutrophils % (M) 88 %; Nucleated Red Blood Cells 22 /100 WBC (0-0); Poikilocytosis (M) Present; Total Cells Counted 200; WBC 17.5 k/uL (3.8-10.6)
[2022-03-13] MEDS ORDERED: SODIUM BICARB 8.4% 50 ML SYR (1 MEQ/ML) IV STA ×3 (23:02→23:11)
[2022-03-14 02:57] LABS: Vitamin B12 >2000.0 pg/mL (200.0-944.0)
[2022-03-14 06:47] LABS: HCT 47.4 % (39.0-53.0); HGB 14.7 gm/dL (13.0-17.5); Hypochromasia Slight; MCH 30.9 pg (25.0-35.0); MCV 99.7 fL (80.0-100.0); Mean Platelet Volume 9.6; Platelet Count 211 k/uL (150-450); RBC 4.75 m/uL (4.30-5.90); RDW 13.6 % (11.5-15.5); WBC 20.7 k/uL (3.8-10.6)
[2022-03-14 07:04] LABS: Calcium 7.3 mg/dL (8.4-10.2); Potassium 3.7 mmol/L (3.5-5.1)
[2022-03-14] MEDS ORDERED: HEPARIN SODIUM 1,000 UN/ML (10ML VL) IV PRN (08:04)
[2022-03-14] MEDS ORDERED: POTASSIUM CHLORIDE 20 MEQ in WATER FOR INJECTION 1 100ML.BAG IVPB ONE (09:00)
[2022-03-14] MEDS ORDERED: SODIUM CHLORIDE 0.9% 1,000 ML IV ONE (09:43)
[2022-03-14] MEDS: DEXTROSE 5% IN WATER 1,000 ML with SODIUM BICARB (1 MEQ/ML) 150 ML IV SCH (09:50)
--- NOTE | 2022-03-14 10:29 | P.PN ---
Subjective Progress Note Date: 03/14/22 Principal diagnosis: Pulmonary embolism Patient is seen and examined sitting up in bed in the ICU. Patient had his echocardiogram yesterday that reports normal size and function of the right ventricle. Reduced LV systolic function, possible LV apical thrombus. EF 20- 25%. Neurology on consult report acute ischemic stroke involving left deep parietal region likely embolic. Patient with new onset atrial fibrillation. Patient still with symptoms of right upper extremity weakness, dysarthria. Speech therapist had seen patient for swallowing valve suspect severe pharyngeal dysphagia with concern for silent aspiration. Patient currently nothing by mouth with modified barium swallow scheduled today. Patient still remains on IV heparin drip. Plasma lactic acid 4.5. CT abdomen and pelvis was ordered with reported concern for possible ileus versus ischemic bowel. Patient denies any shortness of breath, chest pain, abdominal pain, nausea or vomiting. He's been afebrile. Objective - Vital Signs Vital signs: Vital Signs Temp 97.4 F L 03/14/22 04:00 Pulse 67 03/14/22 07:00 Resp 20 03/14/22 07:00 BP 104/76 03/14/22 07:00 Pulse Ox 86 L 03/14/22 05:00 Intake & Output 03/13/22 03/14/22 03/14/22 18:59 06:59 18:59 Intake Total 3687.001 2038.174 132.983 Output Total 195 278 48 Balance 3492.001 1760.174 84.983 Weight 86.5 kg 91 kg Intake: IV 3450 1800 125 Dextrose 5% in Water 1, 1000 1400 125 000 ml @ 125 mls/hr IV . Q9H12M YESENIA with Sodium Bicarb (1 Meq/ml) 150 ml Rx#:[id number] Dextrose 5% in Water 1, 150 000 ml @ 75 mls/hr IV . B36H32K YESENIA with Sodium Bicarb (1 Meq/ml) 100 ml Rx#:[id number] Sodium Chloride 0.45% 1, 300 400 000 ml @ 100 mls/hr IV . Q10H YESENIA Rx#:[id number] Sodium Chloride 0.9% 1, 2000 000 ml @ 999 mls/hr IV . Q1H1M ONE Rx#:[id number] Intake, IV Titration 237.001 238.174 7.983 Amount Diltiazem 125 mg In 116.5 98.667 Sodium Chloride 0.9% 100 ml @ 10 MG/HR 10 mls/hr IV .D18C56H YESENIA Rx#: [id number] Heparin Sod,Pork in 0.45% 120.501 139.507 7.983 NaCl 25,000 unit In 0.45 % NaCl 1 250ml.bag @ 18 UNITS/KG/HR 17.962 mls/hr IV .[id number] YESENIA Rx#: [id number] Output: Urine 195 278 48 Other: Voiding Method Indwelling Catheter Indwelling Catheter # Voids 0 - Exam General appearance: The patient is alert, oriented, appears in no acute distress. HET: Head is normocephalic and atraumatic. Pupils are equal and reactive. Neck: Supple without lymphadenopathy. Trachea midline. No audible carotid bruit. Heart: S1 S2. Regular rate and rhythm. Lungs: Clear to auscultation bilaterally. Abdomen: Soft, nontender, nondistended. Extremities: Normal skin color and turgor. No cyanosis, rash, ulceration, clubbing, or edema. Palpable bilateral pedal pulses. Neurological: Alert and oriented 2. Right upper extremity weakness. Hand grasp is 0/5. Dysarthria noted. Patient is able to follow commands and answer questions appropriately. - Labs CBC & Chem 7: 03/14/22 06:05 03/14/22 06:05 Labs: Abnormal Lab Results - Last 24 Hours (Table) 03/13/22 03/13/22 03/13/22 Range/Units 09:15 10:25 10:25 WBC (3.8-10.6) k/uL MCV (80.0-100.0) fL MCHC (31.0-37.0) g/dL Neutrophils # (Manual) (1.3-7.7) k/uL Nucleated RBCs (0-0) /100 WBC APTT 185.7 H* (22.0-30.0) sec Sodium (137-145) mmol/L Potassium 5.3 H (3.5-5.1) mmol/L Carbon Dioxide 11 L (22-30) mmol/L BUN 41 H (9-20) mg/dL Creatinine 2.51 H (0.66-1.25) mg/dL Glucose 110 H (74-99) mg/dL Plasma Lactic Acid Willian (0.7-2.0) mmol/L Calcium (8.4-10.2) mg/dL Vitamin B12 (200.0-944.0) pg/mL Ur Specific [place] 1.050 H (1.001-1.035) Urine Protein 1+ H (Negative) Urine Blood Large H (Negative) Ur Leukocyte Esterase Small H (Negative) Urine RBC 29 H (0-5) /hpf Urine WBC 22 H (0-5) /hpf Urine Bacteria Occasional H (None) /hpf Urine Mucus Moderate H (None) /hpf 03/13/22 03/13/22 03/13/22 Range/Units 11:02 14:04 19:40 WBC (3.8-10.6) k/uL MCV (80.0-100.0) fL MCHC (31.0-37.0) g/dL Neutrophils # (Manual) (1.3-7.7) k/uL Nucleated RBCs (0-0) /100 WBC APTT (22.0-30.0) sec Sodium 136 L (137-145) mmol/L Potassium (3.5-5.1) mmol/L Carbon Dioxide 10 L (22-30) mmol/L BUN 45 H (9-20) mg/dL Creatinine 3.28 H (0.66-1.25) mg/dL Glucose 126 H (74-99) mg/dL Plasma Lactic Acid Willian 14.9 H* 15.2 H* (0.7-2.0) mmol/L Calcium 7.6 L (8.4-10.2) mg/dL Vitamin B12 >2000.0 H (200.0-944.0) pg/mL Ur Specific [place] (1.001-1.035) Urine Protein (Negative) Urine Blood (Negative) Ur Leukocyte Esterase (Negative) Urine RBC (0-5) /hpf Urine WBC (0-5) /hpf Urine Bacteria (None) /hpf Urine Mucus (None) /hpf 03/13/22 03/13/22 03/13/22 Range/Units 19:40 19:40 19:40 WBC 17.5 H (3.8-10.6) k/uL MCV 102.3 H D (80.0-100.0) fL MCHC 30.0 L (31.0-37.0) g/dL Neutrophils # (Manual) 16.20 H (1.3-7.7) k/uL Nucleated RBCs 22 H (0-0) /100 WBC APTT 193.0 H* (22.0-30.0) sec Sodium (137-145) mmol/L Potassium (3.5-5.1) mmol/L Carbon Dioxide (22-30) mmol/L BUN (9-20) mg/dL Creatinine (0.66-1.25) mg/dL Glucose (74-99) mg/dL Plasma Lactic Acid Willian 12.4 H* (0.7-2.0) mmol/L Calcium (8.4-10.2) mg/dL Vitamin B12 (200.0-944.0) pg/mL Ur Specific [place] (1.001-1.035) Urine Protein (Negative) Urine Blood (Negative) Ur Leukocyte Esterase (Negative) Urine RBC (0-5) /hpf Urine WBC (0-5) /hpf Urine Bacteria (None) /hpf Urine Mucus (None) /hpf 03/13/22 03/14/22 03/14/22 Range/Units 22:32 01:46 01:46 WBC (3.8-10.6) k/uL MCV (80.0-100.0) fL MCHC (31.0-37.0) g/dL Neutrophils # (Manual) (1.3-7.7) k/uL Nucleated RBCs (0-0) /100 WBC APTT >200.0 H* (22.0-30.0) sec Sodium (137-145) mmol/L Potassium (3.5-5.1) mmol/L Carbon Dioxide (22-30) mmol/L BUN (9-20) mg/dL Creatinine (0.66-1.25) mg/dL Glucose (74-99) mg/dL Plasma Lactic Acid Willian 10.5 H* 6.6 H* (0.7-2.0) mmol/L Calcium (8.4-10.2) mg/dL Vitamin B12 (200.0-944.0) pg/mL Ur Specific [place] (1.001-1.035) Urine Protein (Negative) Urine Blood (Negative) Ur Leukocyte Esterase (Negative) Urine RBC (0-5) /hpf Urine WBC (0-5) /hpf Urine Bacteria (None) /hpf Urine Mucus (None) /hpf 03/14/22 03/14/22 03/14/22 Range/Units 05:32 06:05 06:05 WBC 20.7 H (3.8-10.6) k/uL MCV (80.0-100.0) fL MCHC (31.0-37.0) g/dL Neutrophils # (Manual) (1.3-7.7) k/uL Nucleated RBCs (0-0) /100 WBC APTT 37.2 H (22.0-30.0) sec Sodium (137-145) mmol/L Potassium (3.5-5.1) mmol/L Carbon Dioxide (22-30) mmol/L BUN (9-20) mg/dL Creatinine (0.66-1.25) mg/dL Glucose (74-99) mg/dL Plasma Lactic Acid Willian 4.5 H* (0.7-2.0) mmol/L Calcium (8.4-10.2) mg/dL Vitamin B12 (200.0-944.0) pg/mL Ur Specific [place] (1.001-1.035) Urine Protein (Negative) Urine Blood (Negative) Ur Leukocyte Esterase (Negative) Urine RBC (0-5) /hpf Urine WBC (0-5) /hpf Urine Bacteria (None) /hpf Urine Mucus (None) /hpf 03/14/22 Range/Units 06:05 WBC (3.8-10.6) k/uL MCV (80.0-100.0) fL MCHC (31.0-37.0) g/dL Neutrophils # (Manual) (1.3-7.7) k/uL Nucleated RBCs (0-0) /100 WBC APTT (22.0-30.0) sec Sodium (137-145) mmol/L Potassium (3.5-5.1) mmol/L Carbon Dioxide (22-30) mmol/L BUN 57 H (9-20) mg/dL Creatinine 3.20 H (0.66-1.25) mg/dL Glucose 123 H (74-99) mg/dL Plasma Lactic Acid Willian (0.7-2.0) mmol/L Calcium 7.3 L (8.4-10.2) mg/dL Vitamin B12 (200.0-944.0) pg/mL Ur Specific [place] (1.001-1.035) Urine Protein (Negative) Urine Blood (Negative) Ur Leukocyte Esterase (Negative) Urine RBC (0-5) /hpf Urine WBC (0-5) /hpf Urine Bacteria (None) /hpf Urine Mucus (None) /hpf Microbiology - Last 24 Hours (Table) 03/13/22 09:15 Urine Culture - Preliminary Urine,Voided Assessment and Plan Assessment: 1. Multiple pulmonary emboli with possible right heart strain per CT angiogram. No Right hear strain per echocardiogram 2. Acute stroke, presenting with right sided aweakness and dysarthia 3. Atrial fibrillation 4. Significant alcohol abuse 5. Current every day smoker Plan: 1. Continue IV heparin drip for now, may transition to oral anticoagulation of your choice once cleared by speech 2. No indication for any vascular surgical intervention with EKOS 3. Occupational and physical therapy on consult 4. Speech therapy on consult 5. Appreciate recommendations from cardiology 6. Appreciate recommendations from neurology Thank you for this consultation, We will sign off. The impression and plan of care has been dictated as directed. Dr. Lewis I performed a history and examination of this patient, discussed the same with the dictator. I agree with the dictator's note ,documented as a scribe. Any additional findings or plans will be noted.
[2022-03-14 10:30] LABS: Alkaline Phosphatase 88 U/L (38-126)
[2022-03-14 10:39] LABS: ALT 2042 U/L (4-49)
--- NOTE | 2022-03-14 10:47 | P.GSCN ---
History of Present Illness Consult date: 03/14/22 Reason for Consult: Ischemic bowel History of present illness: 56-year-old male hospitalized for recent fall and acute ischemic stroke. Patien t also with possible pulmonary embolism. Currently in the ICU. Elevated lactic acid and liver enzymes. History of heavy alcohol use. CAT scan abdomen and pelvis was obtained. Small amount of free fluid in the pelvis as described. No bowel wall thickening is noted. No free air is seen. Patient denies abdominal pain. He is thirsty. He is currently nothing by mouth waiting for swallow evaluation. We were consulted for evaluation regarding possible bowel ischemia. No rectal bleeding or melena. White blood cell count elevated at 20,000. Lactic acid is improving. Review of Systems Unable to obtain an accurate review of systems given the patient's recent stroke Past Medical History Past Medical History: No Reported History History of Any Multi-Drug Resistant Organisms: None Reported Past Surgical History: No Surgical Hx Reported Past Anesthesia/Blood Transfusion Reactions: No Reported Reaction Past Psychological History: No Psychological Hx Reported Smoking Status: Former smoker Past Alcohol Use History: Abuse, Daily Past Drug Use History: None Reported - Past Family History Father Family Medical History: Myocardial Infarction ([place]) Additional Family Medical History / Comment(s): Pt states his father had "three heart attacks" Mother History Unknown: Yes Medications and Allergies Home Medications Medication Instructions Recorded Confirmed Type No Known Home Medications 03/12/22 03/12/22 History Allergies Allergy/AdvReac Type Severity Reaction Status Date / Time No Known Allergies Allergy Verified 03/12/22 15:57 Surgical - Exam Vital Signs Temp Pulse Resp BP Pulse Ox 97.9 F 172 H 24 114/80 87 L 03/12/22 14:49 03/12/22 14:49 03/12/22 14:49 03/12/22 14:49 03/12/22 14:49 Physical exam: General: Well-developed, well-nourished HEENT: Abrasion right forehead, facial droop noted Abdomen: Nontender, nondistended Extremities: Mild lower extremity edema Neuro: Alert Results - Labs 03/14/22 06:05 03/14/22 06:05 Abnormal Lab Results - Last 24 Hours (Table) 03/13/22 03/13/22 03/13/22 Range/Units 09:15 10:25 10:25 WBC (3.8-10.6) k/uL MCV (80.0-100.0) fL MCHC (31.0-37.0) g/dL Neutrophils # (Manual) (1.3-7.7) k/uL Nucleated RBCs (0-0) /100 WBC APTT 185.7 H* (22.0-30.0) sec Sodium (137-145) mmol/L Potassium 5.3 H (3.5-5.1) mmol/L Carbon Dioxide 11 L (22-30) mmol/L BUN 41 H (9-20) mg/dL Creatinine 2.51 H (0.66-1.25) mg/dL Glucose 110 H (74-99) mg/dL Plasma Lactic Acid Willian (0.7-2.0) mmol/L Calcium (8.4-10.2) mg/dL ALT (4-49) U/L Vitamin B12 (200.0-944.0) pg/mL Ur Specific [place] 1.050 H (1.001-1.035) Urine Protein 1+ H (Negative) Urine Blood Large H (Negative) Ur Leukocyte Esterase Small H (Negative) Urine RBC 29 H (0-5) /hpf Urine WBC 22 H (0-5) /hpf Urine Bacteria Occasional H (None) /hpf Urine Mucus Moderate H (None) /hpf 03/13/22 03/13/22 03/13/22 Range/Units 11:02 14:04 19:40 WBC (3.8-10.6) k/uL MCV (80.0-100.0) fL MCHC (31.0-37.0) g/dL Neutrophils # (Manual) (1.3-7.7) k/uL Nucleated RBCs (0-0) /100 WBC APTT (22.0-30.0) sec Sodium 136 L (137-145) mmol/L Potassium (3.5-5.1) mmol/L Carbon Dioxide 10 L (22-30) mmol/L BUN 45 H (9-20) mg/dL Creatinine 3.28 H (0.66-1.25) mg/dL Glucose 126 H (74-99) mg/dL Plasma Lactic Acid Willian 14.9 H* 15.2 H* (0.7-2.0) mmol/L Calcium 7.6 L (8.4-10.2) mg/dL ALT (4-49) U/L Vitamin B12 >2000.0 H (200.0-944.0) pg/mL Ur Specific [place] (1.001-1.035) Urine Protein (Negative) Urine Blood (Negative) Ur Leukocyte Esterase (Negative) Urine RBC (0-5) /hpf Urine WBC (0-5) /hpf Urine Bacteria (None) /hpf Urine Mucus (None) /hpf 03/13/22 03/13/22 03/13/22 Range/Units 19:40 19:40 19:40 WBC 17.5 H (3.8-10.6) k/uL MCV 102.3 H D (80.0-100.0) fL MCHC 30.0 L (31.0-37.0) g/dL Neutrophils # (Manual) 16.20 H (1.3-7.7) k/uL Nucleated RBCs 22 H (0-0) /100 WBC APTT 193.0 H* (22.0-30.0) sec Sodium (137-145) mmol/L Potassium (3.5-5.1) mmol/L Carbon Dioxide (22-30) mmol/L BUN (9-20) mg/dL Creatinine (0.66-1.25) mg/dL Glucose (74-99) mg/dL Plasma Lactic Acid Willian 12.4 H* (0.7-2.0) mmol/L Calcium (8.4-10.2) mg/dL ALT (4-49) U/L Vitamin B12 (200.0-944.0) pg/mL Ur Specific [place] (1.001-1.035) Urine Protein (Negative) Urine Blood (Negative) Ur Leukocyte Esterase (Negative) Urine RBC (0-5) /hpf Urine WBC (0-5) /hpf Urine Bacteria (None) /hpf Urine Mucus (None) /hpf 03/13/22 03/14/22 03/14/22 Range/Units 22:32 01:46 01:46 WBC (3.8-10.6) k/uL MCV (80.0-100.0) fL MCHC (31.0-37.0) g/dL Neutrophils # (Manual) (1.3-7.7) k/uL Nucleated RBCs (0-0) /100 WBC APTT >200.0 H* (22.0-30.0) sec Sodium (137-145) mmol/L Potassium (3.5-5.1) mmol/L Carbon Dioxide (22-30) mmol/L BUN (9-20) mg/dL Creatinine (0.66-1.25) mg/dL Glucose (74-99) mg/dL Plasma Lactic Acid Willian 10.5 H* 6.6 H* (0.7-2.0) mmol/L Calcium (8.4-10.2) mg/dL ALT (4-49) U/L Vitamin B12 (200.0-944.0) pg/mL Ur Specific [place] (1.001-1.035) Urine Protein (Negative) Urine Blood (Negative) Ur Leukocyte Esterase (Negative) Urine RBC (0-5) /hpf Urine WBC (0-5) /hpf Urine Bacteria (None) /hpf Urine Mucus (None) /hpf 03/14/22 03/14/22 03/14/22 Range/Units 05:32 06:05 06:05 WBC 20.7 H (3.8-10.6) k/uL MCV (80.0-100.0) fL MCHC (31.0-37.0) g/dL Neutrophils # (Manual) (1.3-7.7) k/uL Nucleated RBCs (0-0) /100 WBC APTT 37.2 H (22.0-30.0) sec Sodium (137-145) mmol/L Potassium (3.5-5.1) mmol/L Carbon Dioxide (22-30) mmol/L BUN (9-20) mg/dL Creatinine (0.66-1.25) mg/dL Glucose (74-99) mg/dL Plasma Lactic Acid Willian 4.5 H* (0.7-2.0) mmol/L Calcium (8.4-10.2) mg/dL ALT (4-49) U/L Vitamin B12 (200.0-944.0) pg/mL Ur Specific [place] (1.001-1.035) Urine Protein (Negative) Urine Blood (Negative) Ur Leukocyte Esterase (Negative) Urine RBC (0-5) /hpf Urine WBC (0-5) /hpf Urine Bacteria (None) /hpf Urine Mucus (None) /hpf 03/14/22 03/14/22 Range/Units 06:05 09:48 WBC (3.8-10.6) k/uL MCV (80.0-100.0) fL MCHC (31.0-37.0) g/dL Neutrophils # (Manual) (1.3-7.7) k/uL Nucleated RBCs (0-0) /100 WBC APTT (22.0-30.0) sec Sodium (137-145) mmol/L Potassium (3.5-5.1) mmol/L Carbon Dioxide (22-30) mmol/L BUN 57 H (9-20) mg/dL Creatinine 3.20 H (0.66-1.25) mg/dL Glucose 123 H (74-99) mg/dL Plasma Lactic Acid Willian (0.7-2.0) mmol/L Calcium 7.3 L (8.4-10.2) mg/dL ALT 2042 H (4-49) U/L Vitamin B12 (200.0-944.0) pg/mL Ur Specific [place] (1.001-1.035) Urine Protein (Negative) Urine Blood (Negative) Ur Leukocyte Esterase (Negative) Urine RBC (0-5) /hpf Urine WBC (0-5) /hpf Urine Bacteria (None) /hpf Urine Mucus (None) /hpf Microbiology - Last 24 Hours (Table) 03/13/22 09:15 Urine Culture - Preliminary Urine,Voided Diabetes panel 03/13/22 03/13/22 03/13/22 Range/Units 10:25 19:40 19:40 Sodium 139 136 L (137-145) mmol/L Potassium 5.3 H 5.0 (3.5-5.1) mmol/L Chloride 103 101 (98-107) mmol/L Carbon Dioxide 11 L 10 L (22-30) mmol/L BUN 41 H 45 H (9-20) mg/dL Creatinine 2.51 H 3.28 H (0.66-1.25) mg/dL Glucose 110 H 126 H (74-99) mg/dL Hemoglobin A1c 5.2 (0.0-6.0) % Calcium 8.4 7.6 L (8.4-10.2) mg/dL ALT (4-49) U/L Alkaline Phosphatase (38-126) U/L 03/14/22 03/14/22 Range/Units 06:05 09:48 Sodium 138 (137-145) mmol/L Potassium 3.7 (3.5-5.1) mmol/L Chloride 99 (98-107) mmol/L Carbon Dioxide 23 (22-30) mmol/L BUN 57 H (9-20) mg/dL Creatinine 3.20 H (0.66-1.25) mg/dL Glucose 123 H (74-99) mg/dL Hemoglobin A1c (0.0-6.0) % Calcium 7.3 L (8.4-10.2) mg/dL ALT 2042 H (4-49) U/L Alkaline Phosphatase 88 (38-126) U/L Calcium panel 03/13/22 03/13/22 03/14/22 Range/Units 10:25 19:40 06:05 Calcium 8.4 7.6 L 7.3 L (8.4-10.2) mg/dL Pituitary panel 03/13/22 03/13/22 03/14/22 Range/Units 10:25 19:40 06:05 Sodium 139 136 L 138 (137-145) mmol/L Potassium 5.3 H 5.0 3.7 (3.5-5.1) mmol/L Chloride 103 101 99 (98-107) mmol/L Carbon Dioxide 11 L 10 L 23 (22-30) mmol/L BUN 41 H 45 H 57 H (9-20) mg/dL Creatinine 2.51 H 3.28 H 3.20 H (0.66-1.25) mg/dL Glucose 110 H 126 H 123 H (74-99) mg/dL Calcium 8.4 7.6 L 7.3 L (8.4-10.2) mg/dL Adrenal panel 03/13/22 03/13/22 03/14/22 Range/Units 10:25 19:40 06:05 Sodium 139 136 L 138 (137-145) mmol/L Potassium 5.3 H 5.0 3.7 (3.5-5.1) mmol/L Chloride 103 101 99 (98-107) mmol/L Carbon Dioxide 11 L 10 L 23 (22-30) mmol/L BUN 41 H 45 H 57 H (9-20) mg/dL Creatinine 2.51 H 3.28 H 3.20 H (0.66-1.25) mg/dL Glucose 110 H 126 H 123 H (74-99) mg/dL Calcium 8.4 7.6 L 7.3 L (8.4-10.2) mg/dL ALT (4-49) U/L Alkaline Phosphatase (38-126) U/L 03/14/22 Range/Units 09:48 Sodium (137-145) mmol/L Potassium (3.5-5.1) mmol/L Chloride (98-107) mmol/L Carbon Dioxide (22-30) mmol/L BUN (9-20) mg/dL Creatinine (0.66-1.25) mg/dL Glucose (74-99) mg/dL Calcium (8.4-10.2) mg/dL ALT 2042 H (4-49) U/L Alkaline Phosphatase 88 (38-126) U/L Assessment and Plan (1) Lactic acid acidosis Narrative/Plan: 56-year-old male with lactic acidosis. Concern for possible bowel ischemia from embolic disease warranted given presentation. Currently on exam however patient without typical symptoms of any significant ischemic bowel. CAT scan reviewed. Free fluid could be on the basis of underlying alcohol-induced hepatocellular disease. No further workup other than serial exams necessary at this time. We'll follow closely with you. Current Visit: Yes Status: Acute Code(s): E87.2 - ACIDOSIS SNOMED Code(s): 31871650
[2022-03-14] MEDS: THIAMINE 100 MG/ML 2 ML VIAL IVP SCH ×2 (10:54→21:46)
[2022-03-14] MEDS: SODIUM CHLORIDE 0.9% 1,000 ML IV SCH ×2 (11:02→21:47)
--- NOTE | 2022-03-14 11:11 | P.PN ---
Subjective Patient is seen in follow-up for acute kidney injury. Creatinine peaked at 3.2 at this admission and is 3.2 today. Urine output also improved. Bicarb changed to normal saline this morning. Acidosis improved. Receiving fluid boluses for elevated lactic acid level. On 6 L nasal cannula. Blood pressure stable. Vital signs are stable. General: Awake. No acute distress. HEENT: Head exam is unremarkable. LUNGS: Breath sounds decreased. HEART: Rate and Rhythm are regular. ABDOMEN: Soft, no distention. EXTREMITITES: No edema. Objective - Vital Signs Vital signs: Vital Signs Temp 98.9 F 03/14/22 08:00 Pulse 70 03/14/22 10:00 Resp 13 03/14/22 10:00 BP 107/70 03/14/22 10:00 Pulse Ox 92 L 03/14/22 10:00 Intake & Output 03/13/22 03/14/22 03/14/22 18:59 06:59 18:59 Intake Total 3687.001 2038.174 507.983 Output Total 195 278 278 Balance 3492.001 1760.174 229.983 Weight 86.5 kg 91 kg Intake: IV 3450 1800 500 Dextrose 5% in Water 1, 1000 1400 375 000 ml @ 125 mls/hr IV . Q9H12M [facility] with Sodium Bicarb (1 Meq/ml) 150 ml Rx#:[id number] Dextrose 5% in Water 1, 150 000 ml @ 75 mls/hr IV . [id number] [facility] with Sodium Bicarb (1 Meq/ml) 100 ml Rx#:[id number] Sodium Chloride 0.45% 1, 300 400 000 ml @ 100 mls/hr IV . Q10H [facility] Rx#:[id number] Sodium Chloride 0.9% 1, 125 000 ml @ 125 mls/hr IV . Q8H [facility] Rx#:[id number] Sodium Chloride 0.9% 1, 2000 000 ml @ 999 mls/hr IV . Q1H1M [facility] Rx#:[id number] Intake, IV Titration 237.001 238.174 7.983 Amount Diltiazem 125 mg In 116.5 98.667 Sodium Chloride 0.9% 100 ml @ 10 MG/HR 10 mls/hr IV .[id number] [facility] Rx#: [id number] Heparin Sod,Pork in 0.45% 120.501 139.507 7.983 NaCl 25,000 unit In 0.45 % NaCl 1 250ml.bag @ 18 UNITS/KG/HR 17.962 mls/hr IV .[id number] [facility] Rx#: [id number] Output: Urine 195 278 278 Other: Voiding Method Indwelling Catheter Indwelling Catheter Indwelling Catheter # Voids 0 - Labs CBC & Chem 7: 03/14/22 06:05 03/14/22 06:05 Labs: Abnormal Lab Results - Last 24 Hours (Table) 03/13/22 03/13/22 03/13/22 Range/Units 09:15 10:25 10:25 WBC (3.8-10.6) k/uL MCV (80.0-100.0) fL MCHC (31.0-37.0) g/dL Neutrophils # (Manual) (1.3-7.7) k/uL Nucleated RBCs (0-0) /100 WBC APTT 185.7 H* (22.0-30.0) sec Sodium (137-145) mmol/L Potassium 5.3 H (3.5-5.1) mmol/L Carbon Dioxide 11 L (22-30) mmol/L BUN 41 H (9-20) mg/dL Creatinine 2.51 H (0.66-1.25) mg/dL Glucose 110 H (74-99) mg/dL Plasma Lactic Acid Raffaele (0.7-2.0) mmol/L Calcium (8.4-10.2) mg/dL ALT (4-49) U/L Vitamin B12 (200.0-944.0) pg/mL Ur Specific Bryce 1.050 H (1.001-1.035) Urine Protein 1+ H (Negative) Urine Blood Large H (Negative) Ur Leukocyte Esterase Small H (Negative) Urine RBC 29 H (0-5) /hpf Urine WBC 22 H (0-5) /hpf Urine Bacteria Occasional H (None) /hpf Urine Mucus Moderate H (None) /hpf 03/13/22 03/13/22 03/13/22 Range/Units 11:02 14:04 19:40 WBC (3.8-10.6) k/uL MCV (80.0-100.0) fL MCHC (31.0-37.0) g/dL Neutrophils # (Manual) (1.3-7.7) k/uL Nucleated RBCs (0-0) /100 WBC APTT (22.0-30.0) sec Sodium 136 L (137-145) mmol/L Potassium (3.5-5.1) mmol/L Carbon Dioxide 10 L (22-30) mmol/L BUN 45 H (9-20) mg/dL Creatinine 3.28 H (0.66-1.25) mg/dL Glucose 126 H (74-99) mg/dL Plasma Lactic Acid Raffaele 14.9 H* 15.2 H* (0.7-2.0) mmol/L Calcium 7.6 L (8.4-10.2) mg/dL ALT (4-49) U/L Vitamin B12 >2000.0 H (200.0-944.0) pg/mL Ur Specific Bryce (1.001-1.035) Urine Protein (Negative) Urine Blood (Negative) Ur Leukocyte Esterase (Negative) Urine RBC (0-5) /hpf Urine WBC (0-5) /hpf Urine Bacteria (None) /hpf Urine Mucus (None) /hpf 03/13/22 03/13/22 03/13/22 Range/Units 19:40 19:40 19:40 WBC 17.5 H (3.8-10.6) k/uL MCV 102.3 H D (80.0-100.0) fL MCHC 30.0 L (31.0-37.0) g/dL Neutrophils # (Manual) 16.20 H (1.3-7.7) k/uL Nucleated RBCs 22 H (0-0) /100 WBC APTT 193.0 H* (22.0-30.0) sec Sodium (137-145) mmol/L Potassium (3.5-5.1) mmol/L Carbon Dioxide (22-30) mmol/L BUN (9-20) mg/dL Creatinine (0.66-1.25) mg/dL Glucose (74-99) mg/dL Plasma Lactic Acid Raffaele 12.4 H* (0.7-2.0) mmol/L Calcium (8.4-10.2) mg/dL ALT (4-49) U/L Vitamin B12 (200.0-944.0) pg/mL Ur Specific Bryce (1.001-1.035) Urine Protein (Negative) Urine Blood (Negative) Ur Leukocyte Esterase (Negative) Urine RBC (0-5) /hpf Urine WBC (0-5) /hpf Urine Bacteria (None) /hpf Urine Mucus (None) /hpf 03/13/22 03/14/22 03/14/22 Range/Units 22:32 01:46 01:46 WBC (3.8-10.6) k/uL MCV (80.0-100.0) fL MCHC (31.0-37.0) g/dL Neutrophils # (Manual) (1.3-7.7) k/uL Nucleated RBCs (0-0) /100 WBC APTT >200.0 H* (22.0-30.0) sec Sodium (137-145) mmol/L Potassium (3.5-5.1) mmol/L Carbon Dioxide (22-30) mmol/L BUN (9-20) mg/dL Creatinine (0.66-1.25) mg/dL Glucose (74-99) mg/dL Plasma Lactic Acid Raffaele 10.5 H* 6.6 H* (0.7-2.0) mmol/L Calcium (8.4-10.2) mg/dL ALT (4-49) U/L Vitamin B12 (200.0-944.0) pg/mL Ur Specific Bryce (1.001-1.035) Urine Protein (Negative) Urine Blood (Negative) Ur Leukocyte Esterase (Negative) Urine RBC (0-5) /hpf Urine WBC (0-5) /hpf Urine Bacteria (None) /hpf Urine Mucus (None) /hpf 03/14/22 03/14/22 03/14/22 Range/Units 05:32 06:05 06:05 WBC 20.7 H (3.8-10.6) k/uL MCV (80.0-100.0) fL MCHC (31.0-37.0) g/dL Neutrophils # (Manual) (1.3-7.7) k/uL Nucleated RBCs (0-0) /100 WBC APTT 37.2 H (22.0-30.0) sec Sodium (137-145) mmol/L Potassium (3.5-5.1) mmol/L Carbon Dioxide (22-30) mmol/L BUN (9-20) mg/dL Creatinine (0.66-1.25) mg/dL Glucose (74-99) mg/dL Plasma Lactic Acid Raffaele 4.5 H* (0.7-2.0) mmol/L Calcium (8.4-10.2) mg/dL ALT (4-49) U/L Vitamin B12 (200.0-944.0) pg/mL Ur Specific Bryce (1.001-1.035) Urine Protein (Negative) Urine Blood (Negative) Ur Leukocyte Esterase (Negative) Urine RBC (0-5) /hpf Urine WBC (0-5) /hpf Urine Bacteria (None) /hpf Urine Mucus (None) /hpf 03/14/22 03/14/22 Range/Units 06:05 09:48 WBC (3.8-10.6) k/uL MCV (80.0-100.0) fL MCHC (31.0-37.0) g/dL Neutrophils # (Manual) (1.3-7.7) k/uL Nucleated RBCs (0-0) /100 WBC APTT (22.0-30.0) sec Sodium (137-145) mmol/L Potassium (3.5-5.1) mmol/L Carbon Dioxide (22-30) mmol/L BUN 57 H (9-20) mg/dL Creatinine 3.20 H (0.66-1.25) mg/dL Glucose 123 H (74-99) mg/dL Plasma Lactic Acid Raffaele (0.7-2.0) mmol/L Calcium 7.3 L (8.4-10.2) mg/dL ALT 2042 H (4-49) U/L Vitamin B12 (200.0-944.0) pg/mL Ur Specific Bryce (1.001-1.035) Urine Protein (Negative) Urine Blood (Negative) Ur Leukocyte Esterase (Negative) Urine RBC (0-5) /hpf Urine WBC (0-5) /hpf Urine Bacteria (None) /hpf Urine Mucus (None) /hpf Microbiology - Last 24 Hours (Table) 03/13/22 09:15 Urine Culture - Preliminary Urine,Voided Assessment and Plan Plan: Assessment: 1. Acute kidney injury secondary to ATN secondary to hemodynamic instability. Also component of contrast-induced acute kidney injury. Patient received IV contrast on 03/12/2022. Creatinine was 1.5 on admission and peaked at 3.28 - 3.2 today. Unknown baseline renal function. Now nonoliguric. No hydronephrosis noted on imaging. 2. A. fib with RVR status post Cardizem drip. 3. PE and pulmonary infarct maintained on heparin drip. 4. Metabolic acidosis secondary to acute kidney injury and lactic acidosis. Improving. 5. Hyperkalemia secondary to acute kidney injury and metabolic acidosis. Hemolyzed sample. Resolved. 6. Alcohol abuse. 7. Acute CVA. 8. Cardiomyopathy with ejection fraction of 20-25%. Questionable left raffaele tricular thrombus present. 9. ?Ischemic bowel. Surgery following Plan: Maintain normal saline - decrease rate to 80 mL an hour. Also received a liter boluses morning. Status post IV Lasix given earlier this morning. Avoid nephrotoxins. Continue to monitor renal function and urine output. Monitor volume status closely due to depressed EF. Repeat chest x-ray.
[2022-03-14 11:15] LABS: Chol/HDL Ratio 6.69 Ratio; LDL Cholesterol,Calculated 36.3 mg/dL (0.0-131.0); VLDL Calculation 15.74 mg/dL (5.00-40.00)
[2022-03-14 11:27] LABS: AST 4086 U/L (17-59)
--- NOTE | 2022-03-14 11:59 | P.PN ---
Subjective Progress Note Date: 03/14/22 Principal diagnosis: Acute pulmonary embolism and CVA with right-sided weakness and slurred speech Physical Exam HEENT:[Neck is supple.] [No neck masses.] [No thyromegaly.] [No JVD.] Chest: [Clear throughout, no crackles, no rhonchi, no wheezes.] Cardiac Exam: [Normal S1 and S2, no S3 gallop, no murmur.] Abdomen: [Soft, nontender, no megaly, no rebound, no guarding, normal bowel sounds.] Extremities: [No clubbing, no edema, no cyanosis.] Neurological Exam: [No focal neurologic deficit.] Objective - Vital Signs Vital signs: Vital Signs Temp 98.9 F 03/14/22 08:00 Pulse 71 03/14/22 11:00 Resp 25 H 03/14/22 11:00 BP 104/77 03/14/22 11:00 Pulse Ox 92 L 03/14/22 11:00 Intake & Output 03/13/22 03/14/22 03/14/22 18:59 06:59 18:59 Intake Total 3687.001 2038.174 507.983 Output Total 195 278 378 Balance 3492.001 1760.174 129.983 Weight 86.5 kg 91 kg Intake: IV 3450 1800 500 Dextrose 5% in Water 1, 1000 1400 375 000 ml @ 125 mls/hr IV . Q9H12M [facility] with Sodium Bicarb (1 Meq/ml) 150 ml Rx#:[id number] Dextrose 5% in Water 1, 150 000 ml @ 75 mls/hr IV . [id number] [facility] with Sodium Bicarb (1 Meq/ml) 100 ml Rx#:[id number] Sodium Chloride 0.45% 1, 300 400 000 ml @ 100 mls/hr IV . Q10H [facility] Rx#:[id number] Sodium Chloride 0.9% 1, 125 000 ml @ 80 mls/hr IV . [id number] [facility] Rx#:[id number] Sodium Chloride 0.9% 1, 2000 000 ml @ 999 mls/hr IV . Q1H1M [facility] Rx#:[id number] Intake, IV Titration 237.001 238.174 7.983 Amount Diltiazem 125 mg In 116.5 98.667 Sodium Chloride 0.9% 100 ml @ 10 MG/HR 10 mls/hr IV .[id number] [facility] Rx#: [id number] Heparin Sod,Pork in 0.45% 120.501 139.507 7.983 NaCl 25,000 unit In 0.45 % NaCl 1 250ml.bag @ 18 UNITS/KG/HR 17.962 mls/hr IV .[id number] [facility] Rx#: [id number] Output: Urine 195 278 378 Other: Voiding Method Indwelling Catheter Indwelling Catheter Indwelling Catheter # Voids 0 - Exam Physical Exam: Revealed 56-year-old white male in no distress, on room air. Patient is having difficulty expressing himself, he has expressive aphasia. Head: Atraumatic normocephalic. HEENT:[Neck is supple.] [No neck masses.] [No thyromegaly.] [No JVD.] Chest: [Clear throughout, no crackles, no rhonchi, no wheezes.] Cardiac Exam: [Normal S1 and S2, no S3 gallop, no murmur.] Abdomen: [Soft, nontender, no megaly, no rebound, no guarding, normal bowel sounds.] Extremities: [No clubbing, no edema, no cyanosis.] Neurological Exam: Right sided hemiparesis is noted, and patient has expressive aphasia. Musculoskeletal: No deformities, no limitation in range of motion but noted to be generally weak on the right side. Skin: No rashes. - Labs CBC & Chem 7: 03/14/22 06:05 03/14/22 06:05 Labs: Abnormal Lab Results - Last 24 Hours (Table) 03/13/22 03/13/22 03/13/22 Range/Units 10:25 14:04 19:40 WBC (3.8-10.6) k/uL MCV (80.0-100.0) fL MCHC (31.0-37.0) g/dL Neutrophils # (Manual) (1.3-7.7) k/uL Nucleated RBCs (0-0) /100 WBC APTT 185.7 H* (22.0-30.0) sec Sodium 136 L (137-145) mmol/L Carbon Dioxide 10 L (22-30) mmol/L BUN 45 H (9-20) mg/dL Creatinine 3.28 H (0.66-1.25) mg/dL Glucose 126 H (74-99) mg/dL Plasma Lactic Acid Willian 15.2 H* (0.7-2.0) mmol/L Calcium 7.6 L (8.4-10.2) mg/dL AST (17-59) U/L ALT (4-49) U/L HDL Cholesterol (40.00-60.00) mg/dL Vitamin B12 >2000.0 H (200.0-944.0) pg/mL 03/13/22 03/13/22 03/13/22 Range/Units 19:40 19:40 19:40 WBC 17.5 H (3.8-10.6) k/uL MCV 102.3 H D (80.0-100.0) fL MCHC 30.0 L (31.0-37.0) g/dL Neutrophils # (Manual) 16.20 H (1.3-7.7) k/uL Nucleated RBCs 22 H (0-0) /100 WBC APTT 193.0 H* (22.0-30.0) sec Sodium (137-145) mmol/L Carbon Dioxide (22-30) mmol/L BUN (9-20) mg/dL Creatinine (0.66-1.25) mg/dL Glucose (74-99) mg/dL Plasma Lactic Acid Willian 12.4 H* (0.7-2.0) mmol/L Calcium (8.4-10.2) mg/dL AST (17-59) U/L ALT (4-49) U/L HDL Cholesterol (40.00-60.00) mg/dL Vitamin B12 (200.0-944.0) pg/mL 03/13/22 03/14/22 03/14/22 Range/Units 22:32 01:46 01:46 WBC (3.8-10.6) k/uL MCV (80.0-100.0) fL MCHC (31.0-37.0) g/dL Neutrophils # (Manual) (1.3-7.7) k/uL Nucleated RBCs (0-0) /100 WBC APTT >200.0 H* (22.0-30.0) sec Sodium (137-145) mmol/L Carbon Dioxide (22-30) mmol/L BUN (9-20) mg/dL Creatinine (0.66-1.25) mg/dL Glucose (74-99) mg/dL Plasma Lactic Acid Willian 10.5 H* (0.7-2.0) mmol/L Calcium (8.4-10.2) mg/dL AST (17-59) U/L ALT (4-49) U/L HDL Cholesterol 9.20 L (40.00-60.00) mg/dL Vitamin B12 (200.0-944.0) pg/mL 03/14/22 03/14/22 03/14/22 Range/Units 01:46 05:32 06:05 WBC (3.8-10.6) k/uL MCV (80.0-100.0) fL MCHC (31.0-37.0) g/dL Neutrophils # (Manual) (1.3-7.7) k/uL Nucleated RBCs (0-0) /100 WBC APTT 37.2 H (22.0-30.0) sec Sodium (137-145) mmol/L Carbon Dioxide (22-30) mmol/L BUN (9-20) mg/dL Creatinine (0.66-1.25) mg/dL Glucose (74-99) mg/dL Plasma Lactic Acid Willian 6.6 H* 4.5 H* (0.7-2.0) mmol/L Calcium (8.4-10.2) mg/dL AST (17-59) U/L ALT (4-49) U/L HDL Cholesterol (40.00-60.00) mg/dL Vitamin B12 (200.0-944.0) pg/mL 03/14/22 03/14/22 03/14/22 Range/Units 06:05 06:05 09:48 WBC 20.7 H (3.8-10.6) k/uL MCV (80.0-100.0) fL MCHC (31.0-37.0) g/dL Neutrophils # (Manual) (1.3-7.7) k/uL Nucleated RBCs (0-0) /100 WBC APTT (22.0-30.0) sec Sodium (137-145) mmol/L Carbon Dioxide (22-30) mmol/L BUN 57 H (9-20) mg/dL Creatinine 3.20 H (0.66-1.25) mg/dL Glucose 123 H (74-99) mg/dL Plasma Lactic Acid Willian (0.7-2.0) mmol/L Calcium 7.3 L (8.4-10.2) mg/dL AST 4086 H (17-59) U/L ALT 2042 H (4-49) U/L HDL Cholesterol (40.00-60.00) mg/dL Vitamin B12 (200.0-944.0) pg/mL Microbiology - Last 24 Hours (Table) 03/13/22 09:15 Urine Culture - Preliminary Urine,Voided Assessment and Plan Plan: 1. Acute kidney injury secondary to ATN secondary to hemodynamic instability. Also component of contrast-induced acute kidney injury. Patient received IV contrast on 03/12/2022. Creatinine was 1.5 on admission and peaked at 3.28 - 3.2 today. Unknown baseline renal function. Now nonoliguric. No hydronephrosis noted on imaging. 2. A. fib with RVR status post Cardizem drip. 3. Acute pulmonary embolism and acute pulmonary infarct 4. Metabolic acidosis secondary to acute kidney injury and lactic acidosis. Improving. 5. Hyperkalemia secondary to acute kidney injury and metabolic acidosis. Hemolyzed sample. Resolved. 6. Alcohol abuse. 7. Acute CVA. With a right-sided weakness and expressive aphasia. 8. Cardiomyopathy with ejection fraction of 20-25%. Questionable left ventricular thrombus present. 9. Possible ileus. Doubt ischemic bowel. 10. Alcoholic liver disease and history of alcohol abuse. Recommendation: Continue heparin, will likely transition to oral anticoagulations therapy in the morning. Continue to monitor in the ICU. Keep nothing by mouth for now unless the patient does well with a swallow ev aluation. Continue IV fluids, presently on 0.9 normal saline at 1 25 mL per hour. This continue sodium bicarb. Continue to monitor renal status and acute kidney injury. Continue to monitor electrolytes. Continue to monitor liver profile. Continue to monitor hepatic profile. Close monitoring of I's and O's. Continue to monitor in the ICU. Prognosis remains relatively guarded.
--- NOTE | 2022-03-14 15:08 | P.PN ---
Subjective Progress Note Date: 03/14/22 Principal diagnosis: Severe cardiomyopathy The patient is a 56-year-old gentleman who did not see a physician in long time was admitted to the hospital with stroke with right-sided weakness and expressive aphasia as well as he was diagnosed with bilateral PE. He was found to be in atrial fibrillation of unknown etiology, paroxysmal versus persistent. The patient was seen this morning he continues to have right-sided weakness and slurred speech as well. His pressure has been marginal. Currently he is on Cardizem for the atrial fibrillation and the heart rate has been controlled. Beside that he is on heparin IV. He cannot take any by mouth medication because he is in process of having a swallow evaluation. He underwent an echo which revealed severe cardiomyopathy with possible LV thrombus. Hemodynamically his pressure is soft. Beside that he underwent renal function tests and that came in to be abnormal and currently is in acute renal failure which is likely secondary to low blood pressure/ATN and could be related to contrast induced cardiomyopathy as well. He received a contrast for the CTA of the chest. Objective - Vital Signs Vital signs: Vital Signs Temp 98.1 F 03/14/22 12:00 Pulse 68 03/14/22 14:00 Resp 29 H 03/14/22 14:00 BP 93/70 03/14/22 14:00 Pulse Ox 90 L 03/14/22 14:00 Intake & Output 03/13/22 03/14/22 03/14/22 18:59 06:59 18:59 Intake Total 3687.001 2038.174 747.983 Output Total 195 278 598 Balance 3492.001 1760.174 149.983 Weight 86.5 kg 91 kg Intake: IV 3450 1800 740 Dextrose 5% in Water 1, 1000 1400 375 000 ml @ 125 mls/hr IV . Q9H12M [facility] with Sodium Bicarb (1 Meq/ml) 150 ml Rx#:[id number] Dextrose 5% in Water 1, 150 000 ml @ 75 mls/hr IV . [id number] [facility] with Sodium Bicarb (1 Meq/ml) 100 ml Rx#:[id number] Sodium Chloride 0.45% 1, 300 400 000 ml @ 100 mls/hr IV . Q10H [facility] Rx#:[id number] Sodium Chloride 0.9% 1, 365 000 ml @ 80 mls/hr IV . [id number] [facility] Rx#:[id number] Sodium Chloride 0.9% 1, 2000 000 ml @ 999 mls/hr IV . Q1H1M [facility] Rx#:[id number] Intake, IV Titration 237.001 238.174 7.983 Amount Diltiazem 125 mg In 116.5 98.667 Sodium Chloride 0.9% 100 ml @ 10 MG/HR 10 mls/hr IV .[id number] [facility] Rx#: [id number] Heparin Sod,Pork in 0.45% 120.501 139.507 7.983 NaCl 25,000 unit In 0.45 % NaCl 1 250ml.bag @ 18 UNITS/KG/HR 17.962 mls/hr IV .[id number] [facility] Rx#: [id number] Output: Urine 195 278 598 Other: Voiding Method Indwelling Catheter Indwelling Catheter Indwelling Catheter # Voids 0 - Constitutional General appearance: Present: no acute distress - Respiratory Respiratory: bilateral: diminished - Cardiovascular Rhythm: irregularly irregular Heart sounds: normal: S1, S2 - Labs CBC & Chem 7: 03/14/22 06:05 03/14/22 06:05 Labs: Abnormal Lab Results - Last 24 Hours (Table) 03/13/22 03/13/22 03/13/22 Range/Units 14:04 19:40 19:40 WBC (3.8-10.6) k/uL MCV (80.0-100.0) fL MCHC (31.0-37.0) g/dL Neutrophils # (Manual) (1.3-7.7) k/uL Nucleated RBCs (0-0) /100 WBC APTT 193.0 H* (22.0-30.0) sec Sodium 136 L (137-145) mmol/L Carbon Dioxide 10 L (22-30) mmol/L BUN 45 H (9-20) mg/dL Creatinine 3.28 H (0.66-1.25) mg/dL Glucose 126 H (74-99) mg/dL Plasma Lactic Acid Willian 15.2 H* (0.7-2.0) mmol/L Calcium 7.6 L (8.4-10.2) mg/dL AST (17-59) U/L ALT (4-49) U/L HDL Cholesterol (40.00-60.00) mg/dL Vitamin B12 >2000.0 H (200.0-944.0) pg/mL 03/13/22 03/13/22 03/13/22 Range/Units 19:40 19:40 22:32 WBC 17.5 H (3.8-10.6) k/uL MCV 102.3 H D (80.0-100.0) fL MCHC 30.0 L (31.0-37.0) g/dL Neutrophils # (Manual) 16.20 H (1.3-7.7) k/uL Nucleated RBCs 22 H (0-0) /100 WBC APTT (22.0-30.0) sec Sodium (137-145) mmol/L Carbon Dioxide (22-30) mmol/L BUN (9-20) mg/dL Creatinine (0.66-1.25) mg/dL Glucose (74-99) mg/dL Plasma Lactic Acid Willian 12.4 H* 10.5 H* (0.7-2.0) mmol/L Calcium (8.4-10.2) mg/dL AST (17-59) U/L ALT (4-49) U/L HDL Cholesterol (40.00-60.00) mg/dL Vitamin B12 (200.0-944.0) pg/mL 03/14/22 03/14/22 03/14/22 Range/Units 01:46 01:46 01:46 WBC (3.8-10.6) k/uL MCV (80.0-100.0) fL MCHC (31.0-37.0) g/dL Neutrophils # (Manual) (1.3-7.7) k/uL Nucleated RBCs (0-0) /100 WBC APTT >200.0 H* (22.0-30.0) sec Sodium (137-145) mmol/L Carbon Dioxide (22-30) mmol/L BUN (9-20) mg/dL Creatinine (0.66-1.25) mg/dL Glucose (74-99) mg/dL Plasma Lactic Acid Willian 6.6 H* (0.7-2.0) mmol/L Calcium (8.4-10.2) mg/dL AST (17-59) U/L ALT (4-49) U/L HDL Cholesterol 9.20 L (40.00-60.00) mg/dL Vitamin B12 (200.0-944.0) pg/mL 03/14/22 03/14/22 03/14/22 Range/Units 05:32 06:05 06:05 WBC 20.7 H (3.8-10.6) k/uL MCV (80.0-100.0) fL MCHC (31.0-37.0) g/dL Neutrophils # (Manual) (1.3-7.7) k/uL Nucleated RBCs (0-0) /100 WBC APTT 37.2 H (22.0-30.0) sec Sodium (137-145) mmol/L Carbon Dioxide (22-30) mmol/L BUN (9-20) mg/dL Creatinine (0.66-1.25) mg/dL Glucose (74-99) mg/dL Plasma Lactic Acid Willian 4.5 H* (0.7-2.0) mmol/L Calcium (8.4-10.2) mg/dL AST (17-59) U/L ALT (4-49) U/L HDL Cholesterol (40.00-60.00) mg/dL Vitamin B12 (200.0-944.0) pg/mL 03/14/22 03/14/22 03/14/22 Range/Units 06:05 09:48 11:32 WBC (3.8-10.6) k/uL MCV (80.0-100.0) fL MCHC (31.0-37.0) g/dL Neutrophils # (Manual) (1.3-7.7) k/uL Nucleated RBCs (0-0) /100 WBC APTT 44.9 H (22.0-30.0) sec Sodium (137-145) mmol/L Carbon Dioxide (22-30) mmol/L BUN 57 H (9-20) mg/dL Creatinine 3.20 H (0.66-1.25) mg/dL Glucose 123 H (74-99) mg/dL Plasma Lactic Acid Willian (0.7-2.0) mmol/L Calcium 7.3 L (8.4-10.2) mg/dL AST 4086 H (17-59) U/L ALT 2042 H (4-49) U/L HDL Cholesterol (40.00-60.00) mg/dL Vitamin B12 (200.0-944.0) pg/mL Microbiology - Last 24 Hours (Table) 03/13/22 09:15 Urine Culture - Preliminary Urine,Voided Assessment and Plan Assessment: Assessment #1 bilateral pulmonary embolism on a CTA of the chest, and known if the pulmonary embolism acute versus chronic #2 atrial fibrillation of unknown etiology at this point, differential diagnoses include paroxysmal versus persistent versus long-standing persistent #3 acute stroke presented as right sided weakness and slurred speech/expressive aphasia #4 excessive alcohol use #5 acute renal failure #6 severe cardiomyopathy of unknown etiology Plan #1 DC Cardizem and start the patient on amiodarone #2 continue monitor the kidney function and electrolytes #3 monitor the liver function test #4 continue heparin at this point #5 consider oral anticoagulation once the patient is able to swallow #6 consider doing a heart catheterization once the kidney function normalized #7 consider medical treatment for the cardiomyopathy at this point #8 follow-up with the patient
--- NOTE | 2022-03-14 15:38 | FL ---
EXAMINATION TYPE: FL barium swallow w video DATE OF EXAM: 03/14/2022 COMPARISON: NONE HISTORY: CVA, failed bedside TECHNIQUE: Fluoroscopy. FINDINGS: Fluoroscopic guidance was provided for the procedure performed in conjunction with the [facility] pathology department. Please see complete report forthcoming from the Speech Pathology departmen t. Various consistencies from thin liquid to solids were administered. Fluoroscopy time 2 minutes 22 seconds. Number of images: 0. No aspiration or penetration was evident. There appears to be free spill through the hypopharynx into the vallecula Free spill with some pooling was observed in the vallecula. There is weak propulsion to the posterior oropharynx. IMPRESSION: 1. No aspiration or penetration evident. 2. Free spill with pooling in the vallecula. This would clear with swallowing.
[2022-03-14] MEDS ORDERED: AMIODARONE 360 MG in DEXTROSE 5% IN WATER 200 ML IV ONE ×2 (16:00)
[2022-03-14] MEDS: HEPARIN SOD,PORK IN 0.45% NACL 25,000 UNIT in 0.45% NACL 1 250ML.BAG IV SCH (16:26)
[2022-03-14] MEDS ORDERED: DEXTROSE 5% IN WATER 100 ML with AMIODARONE 150 MG IV ONE (16:45)
--- NOTE | 2022-03-14 21:13 | P.PN ---
Subjective 56-year-old male with heavy all call abuse history came in with complaints of right-sided facial droop and right arm weakness along with slurred speech. Patient had these symptoms going on and off for about 3 days. Patient is also found to be in atrial fibrillation. Patient denied any chest pain or shortness of breath but patient is is for incidentally found to have bilateral pulmonary emboli patient denied any leg pain. Patient has highly elevated liver enzymes related to heavy alcohol use. AST and ALT consistent with the alcoholic liver disease patient has elevated MCV as well. Patient was on Cardizem drip which is presently discontinued and cardiology evaluated the patient echo is pending. Patient the has significant metabolic acidosis, both anion gap and non-anion gap metabolic acidosis. I'll obtain lactic acid level. Patient probably has cirrhosis as well. She has a compensated metabolic alkalosis. 03/14/2022 Patient remains in the ICU in critical condition. He is aphasic but Can make it through gestures , with mumbles. He has severe right hemiplegia. He has been on respiratory symptoms and no abdominal pain or distention. Blood pressure is 91/72. He is saturating 98% on 6 L In the morning he was on Cardizem drip which is switched Wellbutrin. Also is on heparin drip. He has a Lewis catheter. He still nothing by mouth. WBCs is 20,000, creatinine 3.2, liver enzymes elevated with AST 4086 and ALT 2042. Swallow evaluation showing no aspiration. Ejection fraction showing a 20-25% with global hypokinesia and LV thrombosis. CTA showed scattered pulmonary emboli with pulmonary infarction. CT of the brain showing possible acute left parietal infarct Review of systems: N/a. Patient is aphasic Active Medications Generic Name Dose Route Start Last Admin Trade Name Freq PRN Reason Stop Dose Admin Famotidine 10 mg 03/15/22 09:00 Famotidine 20 Mg/2 Ml Vial IV Q12HR YESENIA Heparin Sodium (Porcine) 0 unit 03/14/22 08:04 Heparin Sodium 1,000 Un/Ml (10ml Vl) IV PER PROTOCOL PRN Low PTT Protocol Heparin Sodium/Sodium Chloride 250 mls @ 17.962 mls/hr 03/12/22 18:15 03/14/22 16:26 25,000 unit/ Sodium Chloride IV 6 units/kg/hr .[id number] YESENIA 5.987 mls/hr Administration Protocol 18 UNITS/KG/HR Sodium Chloride 1,000 mls @ 80 mls/hr 03/14/22 09:45 03/14/22 11:02 Saline 0.9% IV 125 mls/hr .[id number] YESENIA Administration Amiodarone HCl 360 mg/ 200 mls @ 33.333 mls/hr 03/14/22 16:00 03/14/22 16:18 Dextrose/Water IV 03/14/22 21:59 1 mg/min .Q6H ONE 33.333 mls/hr Administration Protocol 1 MG/MIN Amiodarone HCl 450 mg/ 250 mls @ 16.667 mls/hr 03/14/22 22:00 Dextrose/Water IV 03/15/22 15:59 .Q15H YESENIA Protocol 0.5 MG/MIN Lorazepam 1 mg 03/12/22 18:36 Lorazepam 2 Mg/Ml Inj IV Q2HR PRN CIWA 8 or 9 Lorazepam 1 mg 03/12/22 18:36 Lorazepam 2 Mg/Ml Inj IV Q1HR PRN CIWA 10 to 15 Naloxone HCl 0.2 mg 03/12/22 18:47 Naloxone 0.4 Mg/Ml 1 Ml Vial IV Q2M PRN Opioid Reversal Thiamine HCl 100 mg 03/14/22 10:00 03/14/22 10:54 Thiamine 100 Mg/Ml 2 Ml Vial IVP 100 mg Q12HR YESENIA Administration Objective - Vital Signs Vital signs: Vital Signs Temp 98.9 F 03/14/22 08:00 Pulse 71 03/14/22 11:00 Resp 25 H 03/14/22 11:00 BP 104/77 03/14/22 11:00 Pulse Ox 92 L 03/14/22 11:00 Intake & Output 03/13/22 03/14/22 03/14/22 18:59 06:59 18:59 Intake Total 3687.001 2038.174 507.983 Output Total 195 278 378 Balance 3492.001 1760.174 129.983 Weight 86.5 kg 91 kg Intake: IV 3450 1800 500 Dextrose 5% in Water 1, 1000 1400 375 000 ml @ 125 mls/hr IV . Q9H12M YESENIA with Sodium Bicarb (1 Meq/ml) 150 ml Rx#:[id number] Dextrose 5% in Water 1, 150 000 ml @ 75 mls/hr IV . [id number] YESENIA with Sodium Bicarb (1 Meq/ml) 100 ml Rx#:[id number] Sodium Chloride 0.45% 1, 300 400 000 ml @ 100 mls/hr IV . Q10H YESENIA Rx#:[id number] Sodium Chloride 0.9% 1, 125 000 ml @ 80 mls/hr IV . [id number] [facility] Rx#:[id number] Sodium Chloride 0.9% 1, 2000 000 ml @ 999 mls/hr IV . Q1H1M ONE Rx#:[id number] Intake, IV Titration 237.001 238.174 7.983 Amount Diltiazem 125 mg In 116.5 98.667 Sodium Chloride 0.9% 100 ml @ 10 MG/HR 10 mls/hr IV .[id number] [facility] Rx#: [id number] Heparin Sod,Pork in 0.45% 120.501 139.507 7.983 NaCl 25,000 unit In 0.45 % NaCl 1 250ml.bag @ 18 UNITS/KG/HR 17.962 mls/hr IV .[id number] [facility] Rx#: [id number] Output: Urine 195 278 378 Other: Voiding Method Indwelling Catheter Indwelling Catheter Indwelling Catheter # Voids 0 - Exam - GENERAL: The patient is alert and awake, he follows commands. Patient is aphasic. Not look in distress HEENT: Pupils are round and equally reacting to light. EOMI. No scleral icterus. No conjunctival pallor. Normocephalic, atraumatic. No pharyngeal erythema. No thyromegaly. CARDIOVASCULAR: S1 and S2 present. No murmurs, rubs, or gallops. PULMONARY: Chest is clear to auscultation, no wheezing or crackles. ABDOMEN: Soft, nontender, nondistended, normoactive bowel sounds. No palpable organomegaly. MUSCULOSKELETAL: No joint swelling or deformity. EXTREMITIES: No cyanosis, clubbing, or pedal edema. -NEUROLOGICAL: Patient is aphasic. He has tried hemiplegia, barely moving his right side. SKIN: No rashes. no petechiae. - Labs CBC & Chem 7: 03/14/22 06:05 03/14/22 06:05 Labs: Abnormal Lab Results - Last 24 Hours (Table) 05/01/3003/13/22 03/13/22 Range/Units 09:15 10:25 10:25 WBC (3.8-10.6) k/uL MCV (80.0-100.0) fL MCHC (31.0-37.0) g/dL Neutrophils # (Manual) (1.3-7.7) k/uL Nucleated RBCs (0-0) /100 WBC APTT 185.7 H* (22.0-30.0) sec Sodium (137-145) mmol/L Potassium 5.3 H (3.5-5.1) mmol/L Carbon Dioxide 11 L (22-30) mmol/L BUN 41 H (9-20) mg/dL Creatinine 2.51 H (0.66-1.25) mg/dL Glucose 110 H (74-99) mg/dL Plasma Lactic Acid Willian (0.7-2.0) mmol/L Calcium (8.4-10.2) mg/dL ALT (4-49) U/L HDL Cholesterol (40.00-60.00) mg/dL Vitamin B12 (200.0-944.0) pg/mL Ur Specific Fenton 1.050 H (1.001-1.035) Urine Protein 1+ H (Negative) Urine Blood Large H (Negative) Ur Leukocyte Esterase Small H (Negative) Urine RBC 29 H (0-5) /hpf Urine WBC 22 H (0-5) /hpf Urine Bacteria Occasional H (None) /hpf Urine Mucus Moderate H (None) /hpf 03/13/22 03/13/22 03/13/22 Range/Units 11:02 14:04 19:40 WBC (3.8-10.6) k/uL MCV (80.0-100.0) fL MCHC (31.0-37.0) g/dL Neutrophils # (Manual) (1.3-7.7) k/uL Nucleated RBCs (0-0) /100 WBC APTT (22.0-30.0) sec Sodium 136 L (137-145) mmol/L Potassium (3.5-5.1) mmol/L Carbon Dioxide 10 L (22-30) mmol/L BUN 45 H (9-20) mg/dL Creatinine 3.28 H (0.66-1.25) mg/dL Glucose 126 H (74-99) mg/dL Plasma Lactic Acid Willian 14.9 H* 15.2 H* (0.7-2.0) mmol/L Calcium 7.6 L (8.4-10.2) mg/dL ALT (4-49) U/L HDL Cholesterol (40.00-60.00) mg/dL Vitamin B12 >2000.0 H (200.0-944.0) pg/mL Ur Specific Fenton (1.001-1.035) Urine Protein (Negative) Urine Blood (Negative) Ur Leukocyte Esterase (Negative) Urine RBC (0-5) /hpf Urine WBC (0-5) /hpf Urine Bacteria (None) /hpf Urine Mucus (None) /hpf 03/13/22 03/13/22 03/13/22 Range/Units 19:40 19:40 19:40 WBC 17.5 H (3.8-10.6) k/uL MCV 102.3 H D (80.0-100.0) fL MCHC 30.0 L (31.0-37.0) g/dL Neutrophils # (Manual) 16.20 H (1.3-7.7) k/uL Nucleated RBCs 22 H (0-0) /100 WBC APTT 193.0 H* (22.0-30.0) sec Sodium (137-145) mmol/L Potassium (3.5-5.1) mmol/L Carbon Dioxide (22-30) mmol/L BUN (9-20) mg/dL Creatinine (0.66-1.25) mg/dL Glucose (74-99) mg/dL Plasma Lactic Acid Willian 12.4 H* (0.7-2.0) mmol/L Calcium (8.4-10.2) mg/dL ALT (4-49) U/L HDL Cholesterol (40.00-60.00) mg/dL Vitamin B12 (200.0-944.0) pg/mL Ur Specific Fenton (1.001-1.035) Urine Protein (Negative) Urine Blood (Negative) Ur Leukocyte Esterase (Negative) Urine RBC (0-5) /hpf Urine WBC (0-5) /hpf Urine Bacteria (None) /hpf Urine Mucus (None) /hpf 03/13/22 03/14/22 03/14/22 Range/Units 22:32 01:46 01:46 WBC (3.8-10.6) k/uL MCV (80.0-100.0) fL MCHC (31.0-37.0) g/dL Neutrophils # (Manual) (1.3-7.7) k/uL Nucleated RBCs (0-0) /100 WBC APTT >200.0 H* (22.0-30.0) sec Sodium (137-145) mmol/L Potassium (3.5-5.1) mmol/L Carbon Dioxide (22-30) mmol/L BUN (9-20) mg/dL Creatinine (0.66-1.25) mg/dL Glucose (74-99) mg/dL Plasma Lactic Acid Willian 10.5 H* (0.7-2.0) mmol/L Calcium (8.4-10.2) mg/dL ALT (4-49) U/L HDL Cholesterol 9.20 L (40.00-60.00) mg/dL Vitamin B12 (200.0-944.0) pg/mL Ur Specific Fenton (1.001-1.035) Urine Protein (Negative) Urine Blood (Negative) Ur Leukocyte Esterase (Negative) Urine RBC (0-5) /hpf Urine WBC (0-5) /hpf Urine Bacteria (None) /hpf Urine Mucus (None) /hpf 03/14/22 03/14/22 03/14/22 Range/Units 01:46 05:32 06:05 WBC (3.8-10.6) k/uL MCV (80.0-100.0) fL MCHC (31.0-37.0) g/dL Neutrophils # (Manual) (1.3-7.7) k/uL Nucleated RBCs (0-0) /100 WBC APTT 37.2 H (22.0-30.0) sec Sodium (137-145) mmol/L Potassium (3.5-5.1) mmol/L Carbon Dioxide (22-30) mmol/L BUN (9-20) mg/dL Creatinine (0.66-1.25) mg/dL Glucose (74-99) mg/dL Plasma Lactic Acid Willian 6.6 H* 4.5 H* (0.7-2.0) mmol/L Calcium (8.4-10.2) mg/dL ALT (4-49) U/L HDL Cholesterol (40.00-60.00) mg/dL Vitamin B12 (200.0-944.0) pg/mL Ur Specific Fenton (1.001-1.035) Urine Protein (Negative) Urine Blood (Negative) Ur Leukocyte Esterase (Negative) Urine RBC (0-5) /hpf Urine WBC (0-5) /hpf Urine Bacteria (None) /hpf Urine Mucus (None) /hpf 03/14/22 03/14/22 03/14/22 Range/Units 06:05 06:05 09:48 WBC 20.7 H (3.8-10.6) k/uL MCV (80.0-100.0) fL MCHC (31.0-37.0) g/dL Neutrophils # (Manual) (1.3-7.7) k/uL Nucleated RBCs (0-0) /100 WBC APTT (22.0-30.0) sec Sodium (137-145) mmol/L Potassium (3.5-5.1) mmol/L Carbon Dioxide (22-30) mmol/L BUN 57 H (9-20) mg/dL Creatinine 3.20 H (0.66-1.25) mg/dL Glucose 123 H (74-99) mg/dL Plasma Lactic Acid Willian (0.7-2.0) mmol/L Calcium 7.3 L (8.4-10.2) mg/dL ALT 2042 H (4-49) U/L HDL Cholesterol (40.00-60.00) mg/dL Vitamin B12 (200.0-944.0) pg/mL Ur Specific Fenton (1.001-1.035) Urine Protein (Negative) Urine Blood (Negative) Ur Leukocyte Esterase (Negative) Urine RBC (0-5) /hpf Urine WBC (0-5) /hpf Urine Bacteria (None) /hpf Urine Mucus (None) /hpf Microbiology - Last 24 Hours (Table) 03/13/22 09:15 Urine Culture - Preliminary Urine,Voided Assessment and Plan Assessment: Acute left parietal stroke with right hemiplegia, most likely embolic from atrial fibrillation and LV thrombosis New-onset atrial fibrillation Bilateral scattered pulmonary emboli's with pulmonary infarction Acute kidney injury Alcoholic abuse at risk of withdrawal Cardiomyopathy with ejection fraction 20-25% Left ventricular mural thrombus Plan: This is a pleasant 56 years old male who presents with multiple problems including CVA, A. fib, PE, DEVAN, CMP Continue with heparin drip Amiodarone drip per center hole reamer Continue with CIWA protocol amphetamine, patient currently not on active wi thdrawal symptoms. Continue with normal saline Several consultants. Following the patient including pulmonary/critical care, supervisor gelatin plant, neurologist, center hole reamer, surgeon's both vascular and general. Labs and medication were reviewed.. Continue same treatment. Continue with symptomatic treatment. Resume home medication. Monitor lytes and vitals. DVT and GI prophylaxis. Further recommendationsas per clinical course of the patient DVT prophylaxis: heparin GI Prophylaxis: Pepcid PT/OT: Pending Prognosis is guarded
[2022-03-14] MEDS ORDERED: AMIODARONE 450 MG in DEXTROSE 5% IN WATER 250 ML IV SCH ×2 (22:00)
[2022-03-15] MEDS: SODIUM CHLORIDE 0.9% 1,000 ML IV SCH (06:23)
--- NOTE | 2022-03-15 06:31 | XR ---
EXAMINATION TYPE: XR chest 1V DATE OF EXAM: 03/15/2022 CLINICAL HISTORY: Difficulty breathing progress study. TECHNIQUE: Single AP portable upright view of the chest is obtained. COMPARISON: Chest x-ray from 2 days. FINDINGS: Low lung volumes redemonstrated. Slightly more prominent right basilar opacity. Left lung r emains clear. Mild cardiomegaly redemonstrated. Osseous structures are intact. Contrast from modified barium swallow noted bowel loops left upper quadrant. IMPRESSION: Slightly more prominent right basilar acute infiltrate and/or atelectasis.
--- NOTE | 2022-03-15 07:33 | P.PN ---
Subjective Progress Note Date: 03/15/22 Principal diagnosis: Severe cardiomyopathy The patient is a 56-year-old gentleman who did not see a physician in long time was admitted to the hospital with stroke with right-sided weakness and expressive aphasia as well as he was diagnosed with bilateral PE. He was found to be in atrial fibrillation of unknown etiology, paroxysmal versus persistent. Beside that he underwent an echocardiogram which revealed severe cardiomyopathy with possible LV thrombus. He was seen this morning. He continues to have right-sided weakness and expressive aphasia. Neurology service is on the case. He continues to be in atrial fibrillation. Yesterday I switched him from Cardizem IV to amiodarone IV and I'm going today to switching to amiodarone by mouth. Liver function tests are elevated have repeated blood work from today and will follow-up on that. I am going to add small dose of beta ne with Toprol-XL. His pressure remains above 90 mmHg systolic. I would hold any AUTUMN inhibitor or Aldactone at this point in the light of acute renal failure. Beside that he is on heparin IV which will continue on consider starting the patient on oral anticoagulation if it's okay from the neurology standpoint overview. He needs to be on oral anticoagulation for the bilateral PE as well as LV thrombus as well as atrial fibrillation. I will continue following up with Objective - Vital Signs Vital signs: Vital Signs Temp 98 F 03/15/22 04:00 Pulse 88 03/15/22 07:00 Resp 16 03/15/22 07:00 BP 103/84 03/15/22 07:00 Pulse Ox 97 03/15/22 07:00 Intake & Output 03/14/22 03/15/22 03/15/22 18:59 06:59 18:59 Intake Total 3615.724 6655 80 Output Total 858 545 60 Balance 260.873 535 20 Weight 95 kg Intake: IV 1060 960 80 Dextrose 5% in Water 1, 375 000 ml @ 125 mls/hr IV . Q9H12M YESENIA with Sodium Bicarb (1 Meq/ml) 150 ml Rx#:[id number] Sodium Chloride 0.9% 1, 685 960 80 000 ml @ 80 mls/hr IV . [id number] YESENIA Rx#:[id number] Intake, IV Titration 58.873 Amount Heparin Sod,Pork in 0.45% 58.873 NaCl 25,000 unit In 0.45 % NaCl 1 250ml.bag @ 18 UNITS/KG/HR 17.962 mls/hr IV .[id number] [facility] Rx#: [id number] Oral 120 Output: Urine 858 545 60 Other: Voiding Method Indwelling Catheter Indwelling Catheter - Constitutional General appearance: Present: no acute distress - Respiratory Respiratory: bilateral: diminished - Cardiovascular Rhythm: irregularly irregular Heart sounds: normal: S1, S2 - Labs CBC & Chem 7: 03/14/22 06:05 03/14/22 06:05 Labs: Abnormal Lab Results - Last 24 Hours (Table) 03/14/22 03/14/22 03/14/22 Range/Units 01:46 09:48 11:32 APTT 44.9 H (22.0-30.0) sec AST 4086 H (17-59) U/L ALT 2042 H (4-49) U/L HDL Cholesterol 9.20 L (40.00-60.00) mg/dL Microbiology - Last 24 Hours (Table) 03/13/22 09:15 Urine Culture - Final Urine,Voided Assessment and Plan Assessment: Assessment #1 bilateral pulmonary embolism on a CTA of the chest, and known if the pulmonary embolism acute versus chronic #2 atrial fibrillation of unknown etiology at this point, differential diagnoses include paroxysmal versus persistent versus long-standing persistent #3 acute stroke presented as right sided weakness and slurred speech/expressive aphasia #4 excessive alcohol use #5 acute renal failure #6 severe cardiomyopathy of unknown etiology Plan #1 DC amiodarone IV and start the patient on amiodarone by mouth #2 monitor the liver function test #3 start the patient on Toprol-XL #4 monitor the kidney function and electrolytes #5 hold starting any AUTUMN inhibitor or aldosterone antagonist #6 consider stop the heparin and starting the patient on oral anticoagulation #7 consider doing coronary angiogram once the patient is more stable from the neurology standpoint of view and his kidney function is back to baseline #8 follow-up with the patient
[2022-03-15 08:33] LABS: Potassium 3.7 mmol/L (3.5-5.1)
[2022-03-15 08:34] LABS: Calcium 7.1 mg/dL (8.4-10.2); Magnesium 2.2 mg/dL (1.6-2.3); Total Bilirubin 13.1 mg/dL (0.2-1.3); Total Protein 6.1 g/dL (6.3-8.2)
[2022-03-15] MEDS: FAMOTIDINE 20 MG/2 ML VIAL IV SCH ×2 (08:36→21:03)
[2022-03-15] MEDS: THIAMINE 100 MG TAB PO SCH ×2 (08:36→21:04)
[2022-03-15] MEDS: AMIODARONE 200 MG TAB PO SCH ×2 (08:36→21:04)
[2022-03-15 08:40] LABS: Basophils # (A) 0.1 k/uL (0-0.2); Basophils % (A) 1 %; Eosinophils # (A) 0.1 k/uL (0-0.7); Eosinophils % (A) 1 %; HCT 53.6 % (39.0-53.0); HGB 16.4 gm/dL (13.0-17.5); Hypochromasia Moderate; Lymphocytes # (A) 3.8 k/uL (1.0-4.8); Lymphocytes % (A) 31 %; MCH 31.6 pg (25.0-35.0); MCHC 30.6 g/dL (31.0-37.0); MCV 103.2 fL (80.0-100.0); Macrocytosis Slight; Mean Platelet Volume 9.8; Monocytes # (A) 0.5 k/uL (0-1.0); Monocytes % (A) 4 %; Neutrophils # (A) 7.7 k/uL (1.3-7.7); Neutrophils % (A) 63 %; Platelet Count 152 k/uL (150-450); RDW 14.5 % (11.5-15.5); WBC 12.3 k/uL (3.8-10.6)
[2022-03-15] MEDS ORDERED: METOPROLOL SUCCINATE (ER) 25 MG TAB.ER.24H PO SCH (09:00)
--- NOTE | 2022-03-15 09:10 | P.PN ---
Subjective Progress Note Date: 03/14/22 Patient was seen for a follow-up. Patient continues to be severely dysarthric, with some aphasia. Denies any headache. Denies any new focal symptoms. No nausea vomiting. Objective - Vital Signs Vital signs: Vital Signs Temp 97.6 F 03/14/22 16:00 Pulse 71 03/14/22 17:15 Resp 17 03/14/22 17:15 BP 89/68 03/14/22 17:15 Pulse Ox 97 03/14/22 17:15 Intake & Output 03/13/22 03/14/22 03/14/22 18:59 06:59 18:59 Intake Total 3687.001 2038.174 1038.873 Output Total 195 278 803 Balance 3492.001 1760.174 235.873 Weight 86.5 kg 91 kg Intake: IV 3450 1800 980 Dextrose 5% in Water 1, 1000 1400 375 000 ml @ 125 mls/hr IV . Q9H12M [facility]ENIA with Sodium Bicarb (1 Meq/ml) 150 ml Rx#:[id number] Dextrose 5% in Water 1, 150 000 ml @ 75 mls/hr IV . [id number] [facility]ENIA with Sodium Bicarb (1 Meq/ml) 100 ml Rx#:[id number] Sodium Chloride 0.45% 1, 300 400 000 ml @ 100 mls/hr IV . Q10H [facility]ENIA Rx#:[id number] Sodium Chloride 0.9% 1, 605 000 ml @ 80 mls/hr IV . [id number] [facility] Rx#:[id number] Sodium Chloride 0.9% 1, 2000 000 ml @ 999 mls/hr IV . Q1H1M ONE Rx#:[id number] Intake, IV Titration 237.001 238.174 58.873 Amount Diltiazem 125 mg In 116.5 98.667 Sodium Chloride 0.9% 100 ml @ 10 MG/HR 10 mls/hr IV .[id number] [facility] Rx#: [id number] Heparin Sod,Pork in 0.45% 120.501 139.507 58.873 NaCl 25,000 unit In 0.45 % NaCl 1 250ml.bag @ 18 UNITS/KG/HR 17.962 mls/hr IV .[id number] [facility] Rx#: [id number] Output: Urine 195 278 803 Other: Voiding Method Indwelling Catheter Indwelling Catheter Indwelling Catheter # Voids 0 - Exam Patient is alert and awake. Speech is very dysarthric, some aphasia. Patient can name some objects, has slightly more difficulty with repetition. Comprehension appears fairly intact. On cranial nerve examination pupils are equal, round and reacting, visual benavides are full. Patient has right facial weakness, central type. Tongue protrudes to the midline. Facial sensation is normal On muscle strength testing (right/left) deltoid 4/5, biceps 4/5, triceps 5-/5, office assistant receptionist 3-/5, ankle dorsiflexion 3-/5, hip flexion 3/5. Patient has right pronator drift and it hits the bed. Sensory is decreased for touch in the right arm and right leg as compared to the contralateral side. Cerebellar functions could not be tested on the right. No ataxia in the left. - Labs CBC & Chem 7: 03/15/22 07:19 03/15/22 07:19 Labs: Abnormal Lab Results - Last 24 Hours (Table) 03/13/22 03/13/22 03/13/22 Range/Units 14:04 19:40 19:40 WBC (3.8-10.6) k/uL MCV (80.0-100.0) fL MCHC (31.0-37.0) g/dL Neutrophils # (Manual) (1.3-7.7) k/uL Nucleated RBCs (0-0) /100 WBC APTT 193.0 H* (22.0-30.0) sec Sodium 136 L (137-145) mmol/L Carbon Dioxide 10 L (22-30) mmol/L BUN 45 H (9-20) mg/dL Creatinine 3.28 H (0.66-1.25) mg/dL Glucose 126 H (74-99) mg/dL Plasma Lactic Acid Willian 15.2 H* (0.7-2.0) mmol/L Calcium 7.6 L (8.4-10.2) mg/dL AST (17-59) U/L ALT (4-49) U/L HDL Cholesterol (40.00-60.00) mg/dL Vitamin B12 >2000.0 H (200.0-944.0) pg/mL 03/13/22 03/13/22 03/13/22 Range/Units 19:40 19:40 22:32 WBC 17.5 H (3.8-10.6) k/uL MCV 102.3 H D (80.0-100.0) fL MCHC 30.0 L (31.0-37.0) g/dL Neutrophils # (Manual) 16.20 H (1.3-7.7) k/uL Nucleated RBCs 22 H (0-0) /100 WBC APTT (22.0-30.0) sec Sodium (137-145) mmol/L Carbon Dioxide (22-30) mmol/L BUN (9-20) mg/dL Creatinine (0.66-1.25) mg/dL Glucose (74-99) mg/dL Plasma Lactic Acid Willian 12.4 H* 10.5 H* (0.7-2.0) mmol/L Calcium (8.4-10.2) mg/dL AST (17-59) U/L ALT (4-49) U/L HDL Cholesterol (40.00-60.00) mg/dL Vitamin B12 (200.0-944.0) pg/mL 03/14/22 03/14/22 03/14/22 Range/Units 01:46 01:46 01:46 WBC (3.8-10.6) k/uL MCV (80.0-100.0) fL MCHC (31.0-37.0) g/dL Neutrophils # (Manual) (1.3-7.7) k/uL Nucleated RBCs (0-0) /100 WBC APTT >200.0 H* (22.0-30.0) sec Sodium (137-145) mmol/L Carbon Dioxide (22-30) mmol/L BUN (9-20) mg/dL Creatinine (0.66-1.25) mg/dL Glucose (74-99) mg/dL Plasma Lactic Acid Willian 6.6 H* (0.7-2.0) mmol/L Calcium (8.4-10.2) mg/dL AST (17-59) U/L ALT (4-49) U/L HDL Cholesterol 9.20 L (40.00-60.00) mg/dL Vitamin B12 (200.0-944.0) pg/mL 03/14/22 03/14/22 03/14/22 Range/Units 05:32 06:05 06:05 WBC 20.7 H (3.8-10.6) k/uL MCV (80.0-100.0) fL MCHC (31.0-37.0) g/dL Neutrophils # (Manual) (1.3-7.7) k/uL Nucleated RBCs (0-0) /100 WBC APTT 37.2 H (22.0-30.0) sec Sodium (137-145) mmol/L Carbon Dioxide (22-30) mmol/L BUN (9-20) mg/dL Creatinine (0.66-1.25) mg/dL Glucose (74-99) mg/dL Plasma Lactic Acid Willian 4.5 H* (0.7-2.0) mmol/L Calcium (8.4-10.2) mg/dL AST (17-59) U/L ALT (4-49) U/L HDL Cholesterol (40.00-60.00) mg/dL Vitamin B12 (200.0-944.0) pg/mL 03/14/22 03/14/22 03/14/22 Range/Units 06:05 09:48 11:32 WBC (3.8-10.6) k/uL MCV (80.0-100.0) fL MCHC (31.0-37.0) g/dL Neutrophils # (Manual) (1.3-7.7) k/uL Nucleated RBCs (0-0) /100 WBC APTT 44.9 H (22.0-30.0) sec Sodium (137-145) mmol/L Carbon Dioxide (22-30) mmol/L BUN 57 H (9-20) mg/dL Creatinine 3.20 H (0.66-1.25) mg/dL Glucose 123 H (74-99) mg/dL Plasma Lactic Acid Willian (0.7-2.0) mmol/L Calcium 7.3 L (8.4-10.2) mg/dL AST 4086 H (17-59) U/L ALT 2042 H (4-49) U/L HDL Cholesterol (40.00-60.00) mg/dL Vitamin B12 (200.0-944.0) pg/mL Microbiology - Last 24 Hours (Table) 03/13/22 09:15 Urine Culture - Final Urine,Voided Assessment and Plan Assessment: * Acute ischemic stroke involving left deep parietal region, likely embolic. Patient clinically has significant dysarthria, some expressive aphasia, right hemiparesis with right hemisensory loss. * New-onset/diagnosed atrial fibrillation * Pulmonary embolism. * Acute kidney injury * Macrocytosis * Acute hepatic injury * History of alcoholism. Plan: * Patient has been started on heparin drip. His last PTT is 44.9. Suggest keeping PTT in the therapeutic range (as per protocol). Patient would need long-term anticoagulation. Cardiology on board. * 2-D echo with bubble study was performed 03/13/2022, which revealed severely reduced left ventricular systolic function, with EF of 20-25%. There is possible left ventricular apical mural thrombus. * CTA of head and neck showed no significant stenosis. * PT OT, speech therapy. * For DVT prophylaxis patient on IV heparin. * Hemoglobin A1c 5.2, lipid panel cholesterol 61, LDL 36, HDL 9.2 and triglycerides 78. No indication for statins. * B12 > 2000, folate 16.10 (macrocytosis likely due to alcoholism). * Continue thiamine, multivitamins. Watch for alcohol withdrawal. * Medical management as per IM, critical care and other specialties. * Speech therapy, PT and OT. Patient is on pured, nectar thick diet.
--- NOTE | 2022-03-15 09:18 | P.PN ---
Subjective Patient is seen in follow-up for acute kidney injury. Creatinine peaked at 3.2 at this admission and is 2.06 today. Nonoliguric. Receiving normal saline. On chopped diet. Blood pressure stable. Awake. On 4 L nasal cannula. Vital signs are stable. General: Awake. No acute distress. HEENT: Head exam is unremarkable. On nasal cannula. LUNGS: Breath sounds decreased. HEART: Rate and Rhythm are regular. ABDOMEN: Soft, no distention. EXTREMITITES: No edema. Objective - Vital Signs Vital signs: Vital Signs Temp 98.1 F 03/15/22 08:00 Pulse 87 03/15/22 09:00 Resp 13 03/15/22 09:00 BP 103/82 03/15/22 09:00 Pulse Ox 96 03/15/22 09:00 Intake & Output 03/14/22 03/15/22 03/15/22 18:59 06:59 18:59 Intake Total 1635.904 4921 240 Output Total 858 545 210 Balance 260.873 535 30 Weight 95 kg Intake: IV 1060 960 240 Dextrose 5% in Water 1, 375 000 ml @ 125 mls/hr IV . Q9H12M [facility] with Sodium Bicarb (1 Meq/ml) 150 ml Rx#:[id number] Sodium Chloride 0.9% 1, 685 960 240 000 ml @ 80 mls/hr IV . [id number] [facility] Rx#:[id number] Intake, IV Titration 58.873 Amount Heparin Sod,Pork in 0.45% 58.873 NaCl 25,000 unit In 0.45 % NaCl 1 250ml.bag @ 18 UNITS/KG/HR 17.962 mls/hr IV .[id number] [facility] Rx#: [id number] Oral 120 Output: Urine 858 545 210 Other: Voiding Method Indwelling Catheter Indwelling Catheter - Labs CBC & Chem 7: 03/15/22 07:19 03/15/22 07:19 Labs: Abnormal Lab Results - Last 24 Hours (Table) 03/14/22 03/14/22 03/14/22 Range/Units 01:46 09:48 11:32 WBC (3.8-10.6) k/uL Hct (39.0-53.0) % MCV (80.0-100.0) fL MCHC (31.0-37.0) g/dL APTT 44.9 H (22.0-30.0) sec BUN (9-20) mg/dL Creatinine (0.66-1.25) mg/dL Calcium (8.4-10.2) mg/dL Total Bilirubin (0.2-1.3) mg/dL AST 4086 H (17-59) U/L ALT 2042 H (4-49) U/L Total Protein (6.3-8.2) g/dL Albumin (3.5-5.0) g/dL HDL Cholesterol 9.20 L (40.00-60.00) mg/dL 03/15/22 03/15/22 03/15/22 Range/Units 07:19 07:19 07:19 WBC 12.3 H (3.8-10.6) k/uL Hct 53.6 H (39.0-53.0) % MCV 103.2 H (80.0-100.0) fL MCHC 30.6 L (31.0-37.0) g/dL APTT 36.3 H (22.0-30.0) sec BUN 46 H (9-20) mg/dL Creatinine 2.06 H (0.66-1.25) mg/dL Calcium 7.1 L (8.4-10.2) mg/dL Total Bilirubin 13.1 H (0.2-1.3) mg/dL AST (17-59) U/L ALT (4-49) U/L Total Protein 6.1 L (6.3-8.2) g/dL Albumin 3.0 L (3.5-5.0) g/dL HDL Cholesterol (40.00-60.00) mg/dL Microbiology - Last 24 Hours (Table) 03/13/22 09:15 Urine Culture - Final Urine,Voided Assessment and Plan Plan: Assessment: 1. Acute kidney injury secondary to ATN secondary to hemodynamic instability. Also component of contrast-induced acute kidney injury. Patient received IV contrast on 03/12/2022. Creatinine was 1.5 on admission and peaked at 3.28 - 2.06 today. Unknown baseline renal function. Now nonoliguric. No hydronephrosis noted on imaging. 2. A. fib with RVR status post Cardizem and amiodarone drip. Now on oral amiodarone. 3. PE and pulmonary infarct maintained on heparin drip. 4. Metabolic acidosis secondary to acute kidney injury and lactic acidosis. Improved. 5. Hyperkalemia secondary to acute kidney injury and metabolic acidosis. Hemolyzed sample. Resolved. 6. Alcohol abuse. 7. Acute CVA. 8. Cardiomyopathy with ejection fraction of 20-25%. Questionable left ventricular thrombus present. 9. ?Ischemic bowel. Surgery following Plan: Maintain normal saline. Avoid nephrotoxins. Continue to monitor renal function and urine output. Monitor volume status closely due to depressed EF. Repeat UA. Check UPC.
[2022-03-15 09:37] LABS: Polychromasia Present
[2022-03-15] MEDS: APIXABAN 5 MG TAB PO SCH ×2 (09:47→21:04)
[2022-03-15 10:17] LABS: Appearance,Urine Turbid (Clear); Bilirubin,Urine 2+ (Negative); Blood,Urine Moderate (Negative); Color,Urine Orange; Glucose,Urine (UA) 2+ (Negative); Ketones,Urine Negative (Negative); PH, Urine 5.5 (5.0-8.0); Protein,Urine Trace (Negative); Specific Gravity,Urine 1.028 (1.001-1.035)
[2022-03-15 10:18] LABS: Bacteria,Urine Rare /hpf; Leukocyte Esterase,Urine Small (Negative); Mucus,Urine Rare /hpf; Nitrite,Urine Negative (Negative); RBC,Urine 29 /hpf (0-5); WBC,Urine 13 /hpf (0-5)
[2022-03-15 10:32] LABS: Creatinine,Urine Random 120.7 mg/dL; Protein/Creatinine Ratio,Urine 0.116
--- NOTE | 2022-03-15 11:01 | P.PN ---
Subjective Progress Note Date: 03/15/22 Principal diagnosis: Acute pulmonary embolism and acute CVA. Patient was reevaluated today on 03/14/2022, patient remains in the ICU, clinically feeling better, lactic acidosis is improving. Sodium bicarb was discontinued today. Patient was given fluid bolus in the form of 0.9 normal saline, and he was placed on 0.9 normal saline at 1 25 mL/h. Urine output is marginal however improving since admission. Renal functioning peaked at 3.2 today. It was 1.5 on admission. Bicarb is improving it is 23 today. Patient remains on heparin liver enzymes remain elevated with AST of 4086 AST of 2023. Worse compared to admission. Patient remains nothing by mouth mostly because of failing bedside swallow evaluation. And he is being followed by general surgery for questionable bowel ischemia although the presentation does not seem to be a presentation of ischemic bowel. And clinically based on physical examination today, clearly the patient does not have a surgical abdomen. And he does have bowel sounds. WBC count today is 20.7. Hemoglobin is 14.7. PTT is subtherapeutic this morning. CT of abdomen and pelvis showed nonspecific gas pattern with air seen throughout several bowel loops. Patient was reevaluated today on 03/15/2022, he is basically about the same. Cont inues to have right-sided weakness and slightly impaired speech. Patient does not seem to be in any distress. He is on 4 L nasal cannula. Patient was reevaluated today by cardiology and he was placed on amiodarone by mouth for his atrial fibrillation. His liver enzymes are elevated, GI consultation is pending. His bilirubin went as high as 13. Recent ultrasound did not show much on the liver. May need to have repeat ultrasound of the liver that may be decided upon by gastroenterology on the case. Patient was reevaluated by speech therapy and he is now on pured diet. He remains on heparin for his pulmonary embolism, and I will transition the patient today to [facility]. And I plan to transfer the patient to 3 cells today on a monitor bed. Patient is not having any bowel movements, however abdomen is rather soft. His WBC count is 12.3 hemoglobin is 16.2 PTT is 36.3 electrolytes are normal renal profile is improving creatinine is down to 2.06 liver enzymes are trending down including AST of 1673, ALT of 1655, however his bilirubin is up to 13. Objective - Vital Signs Vital signs: Vital Signs Temp 98.1 F 03/15/22 08:00 Pulse 97 03/15/22 10:00 Resp 19 03/15/22 10:00 BP 103/72 03/15/22 10:00 Pulse Ox 94 L 03/15/22 10:00 Intake & Output 03/14/22 03/15/22 03/15/22 18:59 06:59 18:59 Intake Total 1017.014 1540 320 Output Total 858 545 275 Balance 260.873 535 45 Weight 95 kg Intake: IV 1060 960 320 Dextrose 5% in Water 1, 375 000 ml @ 125 mls/hr IV . Q9H12M [facility] with Sodium Bicarb (1 Meq/ml) 150 ml Rx#:[id number] Sodium Chloride 0.9% 1, 685 960 320 000 ml @ 80 mls/hr IV . [id number] [facility] Rx#:[id number] Intake, IV Titration 58.873 Amount Heparin Sod,Pork in 0.45% 58.873 NaCl 25,000 unit In 0.45 % NaCl 1 250ml.bag @ 18 UNITS/KG/HR 17.962 mls/hr IV .[id number] [facility] Rx#: [id number] Oral 120 Output: Urine 858 545 275 Other: Voiding Method Indwelling Catheter Indwelling Catheter Indwelling Catheter - Exam Physical Exam: Revealed 56-year-old white male in no distress, on room air. Patient is having difficulty expressing himself, he has expressive aphasia. Head: Atraumatic normocephalic. HEENT:[Neck is supple.] [No neck masses.] [No thyromegaly.] [No JVD.] Icteric sclerae is noted bilaterally Chest: [Clear throughout, no crackles, no rhonchi, no wheezes.] Cardiac Exam: [Normal S1 and S2, no S3 gallop, no murmur.] Abdomen: [Soft, nontender, no megaly, no rebound, no guarding, normal bowel sounds.] Extremities: [No clubbing, no edema, no cyanosis.] Neurological Exam: Right sided hemiparesis is noted, and patient has expressive aphasia. Musculoskeletal: No deformities, no limitation in range of motion but noted to be generally weak on the right side. Skin: No rashes. - Labs CBC & Chem 7: 03/15/22 07:19 03/15/22 07:19 Labs: Abnormal Lab Results - Last 24 Hours (Table) 03/14/22 03/14/22 03/14/22 Range/Units 01:46 09:48 11:32 WBC (3.8-10.6) k/uL Hct (39.0-53.0) % MCV (80.0-100.0) fL MCHC (31.0-37.0) g/dL APTT 44.9 H (22.0-30.0) sec BUN (9-20) mg/dL Creatinine (0.66-1.25) mg/dL Calcium (8.4-10.2) mg/dL Total Bilirubin (0.2-1.3) mg/dL AST 4086 H (17-59) U/L ALT (4-49) U/L Total Protein (6.3-8.2) g/dL Albumin (3.5-5.0) g/dL HDL Cholesterol 9.20 L (40.00-60.00) mg/dL Urine Protein (Negative) Urine Glucose (UA) (Negative) Urine Blood (Negative) Urine Bilirubin (Negative) Ur Leukocyte Esterase (Negative) Urine RBC (0-5) /hpf Urine WBC (0-5) /hpf Urine Bacteria (None) /hpf Urine Mucus (None) /hpf 03/15/22 03/15/22 03/15/22 Range/Units 07:19 07:19 07:19 WBC 12.3 H (3.8-10.6) k/uL Hct 53.6 H (39.0-53.0) % MCV 103.2 H (80.0-100.0) fL MCHC 30.6 L (31.0-37.0) g/dL APTT 36.3 H (22.0-30.0) sec BUN 46 H (9-20) mg/dL Creatinine 2.06 H (0.66-1.25) mg/dL Calcium 7.1 L (8.4-10.2) mg/dL Total Bilirubin 13.1 H (0.2-1.3) mg/dL AST 1673 H (17-59) U/L ALT 1655 H (4-49) U/L Total Protein 6.1 L (6.3-8.2) g/dL Albumin 3.0 L (3.5-5.0) g/dL HDL Cholesterol (40.00-60.00) mg/dL Urine Protein (Negative) Urine Glucose (UA) (Negative) Urine Blood (Negative) Urine Bilirubin (Negative) Ur Leukocyte Esterase (Negative) Urine RBC (0-5) /hpf Urine WBC (0-5) /hpf Urine Bacteria (None) /hpf Urine Mucus (None) /hpf 03/15/22 Range/Units 10:00 WBC (3.8-10.6) k/uL Hct (39.0-53.0) % MCV (80.0-100.0) fL MCHC (31.0-37.0) g/dL APTT (22.0-30.0) sec BUN (9-20) mg/dL Creatinine (0.66-1.25) mg/dL Calcium (8.4-10.2) mg/dL Total Bilirubin (0.2-1.3) mg/dL AST (17-59) U/L ALT (4-49) U/L Total Protein (6.3-8.2) g/dL Albumin (3.5-5.0) g/dL HDL Cholesterol (40.00-60.00) mg/dL Urine Protein Trace H (Negative) Urine Glucose (UA) 2+ H (Negative) Urine Blood Moderate H (Negative) Urine Bilirubin 2+ H (Negative) Ur Leukocyte Esterase Small H (Negative) Urine RBC 29 H (0-5) /hpf Urine WBC 13 H (0-5) /hpf Urine Bacteria Rare H (None) /hpf Urine Mucus Rare H (None) /hpf Microbiology - Last 24 Hours (Table) 03/13/22 09:15 Urine Culture - Final Urine,Voided Assessment and Plan Plan: 1. Acute kidney injury secondary to ATN secondary to hemodynamic instability. Also component of contrast-induced acute kidney injury. Patient received IV contrast on 03/12/2022. Creatinine was 1.5 on admission and peaked at 3.28 , today his creatinine is down to 2.06. Unknown baseline renal function. Now nonoliguric. No hydronephrosis noted on imaging. 2. A. fib with RVR status post Cardizem drip. Patient is now on amiodarone drip. 3. Acute pulmonary embolism and acute pulmonary infarct 4. Metabolic acidosis secondary to acute kidney injury and lactic acidosis. Resolved. 5. Hyperkalemia , resolved. 6. Alcohol abuse. 7. Acute CVA. With a right-sided weakness and expressive aphasia. 8. Cardiomyopathy with ejection fraction of 20-25%. Questionable left ventricular thrombus present. 9. Possible ileus. Doubt ischemic bowel. 10. Alcoholic liver disease and history of alcohol abuse. Recommendation: Change heparin to eliquis. Transfer patient to a cardiac floor. Advanced diet as tolerated, patient is on pured diet. Continue IV fluid Discontinue bicarb. Continue to monitor renal status and acute kidney injury. Continue to monitor electrolytes. Continue to monitor liver profile. Continue to monitor hepatic profile. GI was consulted Close monitoring of I's and O's. Prognosis remains relatively guarded. We'll continue to follow. Time with Patient: Less than 30
--- NOTE | 2022-03-15 13:08 | P.CONS ---
History of Present Illness - Reason for Consult Consult date: 03/15/22 Elevated LFTs Requesting physician: Eduard Frederick - Chief Complaint Right-sided weakness, slurred speech - History of Present Illness This is a 56-year-old male who presented to the emergency department on 03/12/2022 with complaints of right-sided weakness, right-sided facial drooping and slurred speech. He reportedly stated that it was coming and going for last several days up until 3 days ago when it became a permanent symptom. He has a past medical history of heavy alcohol abuse and daily smoker. Dates he quit drinking about 5-6 weeks ago. He denies any previous other medical history. On admission in the emergency room he was noted to be in atrial fibrillation with RVR. He should have an elevated d-dimer. Chest CT angiogram reported scattered multiple pulmonary emboli most pronounced on right with signs of right heart strain with reflux of contrast into the IVC. Wedge-shaped area within the right lower lobe likely representing pulmonary infarct. Patient had been started on IV heparin. Patient was diagnosed with acute ischemic stroke involving the left deep parietal region likely embolic and is being followed closely by neurology. Patient also had new onset atrial fibrillation being followed by cardiology with concern of LV thrombus. Patient has a significant history of a call abuse for many years. States he quit drinking about 6 weeks ago. On admission he was noted to have elevated liver function tests. Patient had elevated lactic acid. Today patient had increase in his LFTs with a total bilirubin of 13.1 AST 1673 ALT is 1655 alkaline phosphatase 108. Patient also noted to have elevated ammonia levelon admission with normal reading yesterday. Gastroenterology was consulted for elevated LFTs. Acute hepatitis panel nonreactive. Patient denies any previous history of liver disease. States he's not been told that he had liver problems in the past. Denies any previous history of hepatitis. Denies any new medications. Salicylates less than 1. Serum alcohol was not detected on admission. Patient denies any abdominal pain, no nausea or vomiting. He denies shortness of breath or chest pain. CT abdomen and pelvis report of wedge-shaped consolidation right lung compatible with pulmonary infarct. Nonspecific gas pattern seen throughout several large and small bowel loops. No transition point seen. Correlate for ileus. Hypodense bladder. Small amount of free fluid in the pelvis some of which appears slightly hyperdense may have a hemorrhagic component. Abdominal ultrasound: Markedly suboptimal study. Heterogeneous hyperechoic appearance of liver likely on basis of diffuse fatty infiltration and/or un derlying hepatocellular disease Review of Systems REVIEW OF SYSTEMS: CARDIOPULMONARY: No chest pain or shortness of breath. Gastrointestinal: No abdominal pain. No nausea or vomiting. No hematemesis, coffee-ground emesis. No rectal bleeding, or melena. GENITOURINARY: No dysuria or hematuria. MUSCULOSKELETAL: Reports normal range of motion., Joint pain. SKIN: No rashes. No jaundice. ENDOCRINE: No chills, fevers. No excessive weight gain or loss. No polydipsia or polyuria. PSYCHIATRIC: Unremarkable. NEUROLOGY: No change in mental status. Denies dizziness, headache. Right-sided weakness, dysarthria, aphasic. ENT: Vision unremarkable. CONSTITUTIONAL: No recent weight loss. No fever, chills, night sweats. Past Medical History Past Medical History: No Reported History History of Any Multi-Drug Resistant Organisms: None Reported Past Surgical History: No Surgical Hx Reported Past Anesthesia/Blood Transfusion Reactions: No Reported Reaction Past Psychological History: No Psychological Hx Reported Smoking Status: Former smoker Past Alcohol Use History: Abuse, Daily Past Drug Use History: None Reported - Past Family History Father Family Medical History: Myocardial Infarction ([place]) Additional Family Medical History / Comment(s): Pt states his father had "three heart attacks" Mother History Unknown: Yes Medications and Allergies Home Medications Medication Instructions Recorded Confirmed Type No Known Home Medications 03/12/22 03/12/22 History Allergies Allergy/AdvReac Type Severity Reaction Status Date / Time No Known Allergies Allergy Verified 03/12/22 15:57 Physical Exam Vitals: Vital Signs Temp Pulse Resp BP Pulse Ox 03/15/22 11:20 89 16 85/50 99 03/15/22 10:00 97 19 103/72 94 L 03/15/22 09:00 87 13 103/82 96 03/15/22 08:30 86 32 H 105/79 96 03/15/22 08:09 99 03/15/22 08:00 98.1 F 91 24 111/73 96 03/15/22 07:30 91 16 125/55 95 03/15/22 07:00 88 16 103/84 97 03/15/22 06:30 86 14 108/75 97 05/05/22 06:00 79 26 H 101/82 97 05 05:30 90 25 H 97/71 98 03/15/22 05:00 81 21 105/66 92 L 03/15/22 04:30 81 19 103/69 94 L 03/15/22 04:00 98 F 68 22 106/74 97 03/15/22 03:30 95 22 102/76 98 03/15/22 03:00 82 29 H 96/86 97 03/15/22 02:30 87 12 97/73 98 03/15/22 02:00 90 18 97/66 99 03/15/22 01:30 93 27 H 100/79 96 03/15/22 01:00 89 20 97/76 98 03/15/22 00:30 78 22 96/61 98 03/15/22 00:19 91 27 H 96/61 98 03/15/22 00:00 97.8 F 85 20 115/98 98 03/14/22 23:30 85 28 H 97/68 03/14/22 23:00 90 28 H 96/86 97 03/14/22 22:30 90 19 115/74 96 03/14/22 22:00 84 53 H 103/82 95 03/14/22 21:30 84 23 106/81 99 03/14/22 21:00 87 24 104/84 98 03/14/22 20:30 75 58 H 104/83 03/14/22 20:00 98.0 F 82 23 100/67 98 03/14/22 19:30 73 18 91/66 98 03/14/22 19:00 70 20 91/72 98 03/14/22 18:45 70 21 96/74 98 03/14/22 18:30 69 22 101/71 97 03/14/22 18:15 72 23 102/67 99 03/14/22 18:00 72 23 113/88 99 03/14/22 17:45 76 16 99/77 98 03/14/22 17:30 72 30 H 114/77 95 03/14/22 17:15 71 17 89/68 97 03/14/22 17:00 78 26 H 94/56 97 03/14/22 16:45 74 30 H 107/85 95 03/14/22 16:30 67 10 L 89/65 95 03/14/22 16:15 77 19 111/62 97 05/04/22 16:05 71 24 101/53 95 03/14/22 16:00 97.6 F 76 17 97/60 95 03/14/22 15:55 74 17 97/60 97 03/14/22 15:50 71 21 97/60 97 03/14/22 15:45 76 20 130/82 98 03/14/22 15:40 80 27 H 130/82 03/14/22 15:35 78 12 130/82 98 03/14/22 15:30 84 24 130/82 97 03/14/22 15:25 80 23 130/82 95 03/14/22 15:20 74 17 130/82 03/14/22 15:15 93 18 97/81 03/14/22 15:10 97/81 03/14/22 15:05 97/81 03/14/22 15:00 97/81 03/14/22 14:55 97/81 03/14/22 14:50 97/81 03/14/22 14:45 97/81 03/14/22 14:40 97/81 03/14/22 14:35 97/81 03/14/22 14:30 97/81 03/14/22 14:25 97/81 03/14/22 14:20 97/81 03/14/22 14:15 97/81 03/14/22 14:10 97/81 03/14/22 14:00 68 29 H 93/70 90 L 03/14/22 13:30 71 25 H 97/67 03/14/22 13:00 62 21 107/70 93 L 03/14/22 12:30 84 15 95/69 03/14/22 12:00 98.1 F 83 23 96/69 93 L 03/14/22 11:30 64 21 90/67 Intake and Output 03/14/22 03/15/22 03/15/22 22:59 06:59 14:59 Intake Total 690.89 760 400 Output Total 435 370 345 Balance 255.89 390 55 Intake: IV 640 640 400 Sodium Chloride 0.9% 1, 640 640 400 000 ml @ 80 mls/hr IV . [id number] [facility] Rx#:[id number] Intake, IV Titration 50.89 Amount Heparin Sod,Pork in 0.45% 50.89 NaCl 25,000 unit In 0.45 % NaCl 1 250ml.bag @ 18 UNITS/KG/HR 17.962 mls/hr IV .[id number] [facility] Rx#: [id number] Oral 120 Output: Urine 435 370 345 Other: Voiding Method Indwelling Catheter Indwelling Catheter Indwelling Catheter Weight 95 kg General appearance: The patient is alert, oriented, appears in no acute distress. HET: Head is normocephalic and atraumatic. Conjunctiva pink. Sclera anicteric. Neck: Supple without lymphadenopathy. Trachea midline. Heart: S1 S2. Regular rate and rhythm. Lungs: Clear to auscultation. Abdomen: Soft, nontender, nondistended with bowel sounds. No guarding or rigidity. Skin: No rashes. No jaundice. Extremities: Normal skin color and turgor. No pedal edema. Neurological: No focal deficits. Alert and oriented x3. Results CBC & Chem 7: 03/15/22 07:19 03/15/22 07:19 Labs: Abnormal Lab Results - Last 24 Hours (Table) 03/14/22 03/14/22 03/15/22 Range/Units 09:48 11:32 07:19 WBC (3.8-10.6) k/uL Hct (39.0-53.0) % MCV (80.0-100.0) fL MCHC (31.0-37.0) g/dL APTT 44.9 H 36.3 H (22.0-30.0) sec BUN (9-20) mg/dL Creatinine (0.66-1.25) mg/dL Calcium (8.4-10.2) mg/dL Total Bilirubin (0.2-1.3) mg/dL AST 4086 H (17-59) U/L ALT (4-49) U/L Total Protein (6.3-8.2) g/dL Albumin (3.5-5.0) g/dL Urine Protein (Negative) Urine Glucose (UA) (Negative) Urine Blood (Negative) Urine Bilirubin (Negative) Ur Leukocyte Esterase (Negative) Urine RBC (0-5) /hpf Urine WBC (0-5) /hpf Urine Bacteria (None) /hpf Urine Mucus (None) /hpf 05/05/22 05/05/22 05/05/22 Range/Units 07:19 07:19 10:00 WBC 12.3 H (3.8-10.6) k/uL Hct 53.6 H (39.0-53.0) % MCV 103.2 H (80.0-100.0) fL MCHC 30.6 L (31.0-37.0) g/dL APTT (22.0-30.0) sec BUN 46 H (9-20) mg/dL Creatinine 2.06 H (0.66-1.25) mg/dL Calcium 7.1 L (8.4-10.2) mg/dL Total Bilirubin 13.1 H (0.2-1.3) mg/dL AST 1673 H (17-59) U/L ALT 1655 H (4-49) U/L Total Protein 6.1 L (6.3-8.2) g/dL Albumin 3.0 L (3.5-5.0) g/dL Urine Protein Trace H (Negative) Urine Glucose (UA) 2+ H (Negative) Urine Blood Moderate H (Negative) Urine Bilirubin 2+ H (Negative) Ur Leukocyte Esterase Small H (Negative) Urine RBC 29 H (0-5) /hpf Urine WBC 13 H (0-5) /hpf Urine Bacteria Rare H (None) /hpf Urine Mucus Rare H (None) /hpf Microbiology - Last 24 Hours (Table) 03/13/22 09:15 Urine Culture - Final Urine,Voided Comments: Chest CT angiogram reported scattered multiple pulmonary emboli most pronounced on right with signs of right heart strain with reflux of contrast into the IVC. Wedge-shaped area within the right lower lobe likely representing pulmonary infarct. CT brain showed decreased attenuation in the left parietal lobe which could reflect an area of acute insult. Correlate clinically. No hemorrhagic transformation seen Abdominal CT wedge shaped consolidation right lung would be compatible with pulmonary infarct given patient's history of pulmonary embolism. Nonspecific gas pattern with air seen throughout several large and small bowel loops. No transition point seen. Correlate for ileus. If concern for ischemic bowel correlate with lactic acid. Bladder is hypodense with Lewis catheter which may be related from previous contrast administration for recent computed tomography scan. Correlate for renal dysfunction or failure with persistent nephrogram and renal retention of contrast. Small amount of free fluid in the pelvis some of which appear slightly hyperdense and may have a hemorrhagic component. Modified barium swallow showed no aspiration or penetration evident. Pre-spell with pooling in the vallecula. This could clear with swallowing. Abdominal ultrasound: Markedly suboptimal study. Heterogeneous Hyperechoic appearance of liver likely on basis of diffuse fatty infiltration and/or underlying hepatocellular disease. Assessment and Plan (1) Alcoholic hepatitis Narrative/Plan: 56-year-old who presented to the emergency department with right-sided weakness, slurring of his speech was noted to be in atrial fibrillation and had an elevated d-dimer. Patient had an acute stroke, multiple bilateral pulmonary emboli with infarct to the right lobe. On admission he was noted to have elevated total bilirubin as well as LFTs. He has a significant history of alcohol abuse. Lives at the bedside and states that he drinks several peers daily for many years. Patient states he quit drinking about 6 weeks ago. He denies any previous history of underlying liver disease or hepatitis. Patient has been hypotensive, positive lactic acid. Patient is likely presenting with underlying alcoholic cirrhosis of the liver with acute ischemic hepatitis. Current Visit: Yes Status: Acute Code(s): K70.10 - ALCOHOLIC HEPATITIS WITHOUT ASCITES SNOMED Code(s): 578907864 (2) Alcohol abuse Current Visit: Yes Status: Acute Code(s): F10.10 - ALCOHOL ABUSE, UNCOMPLICATED SNOMED Code(s): 59454844 (3) Atrial fibrillation with rapid ventricular response Current Visit: Yes Status: Acute Code(s): I48.91 - UNSPECIFIED ATRIAL FIBRILLATION SNOMED Code(s): 092441281647617 (4) Cerebrovascular accident (CVA) Current Visit: Yes Status: Acute Code(s): I63.9 - CEREBRAL INFARCTION, UNSPECIFIED SNOMED Code(s): 308110676 (5) Lactic acid acidosis Current Visit: Yes Status: Acute Code(s): E87.2 - ACIDOSIS SNOMED Code(s): 00873043 (6) Pulmonary embolism Current Visit: Yes Status: Acute Code(s): I26.99 - OTHER PULMONARY EMBOLISM WITHOUT ACUTE COR PULMONALE SNOMED Code(s): 59330094 (7) Pulmonary infarct Current Visit: Yes Status: Acute Code(s): I26.99 - OTHER PULMONARY EMBOLISM WITHOUT ACUTE COR PULMONALE SNOMED Code(s): 29674851 (8) Hypotension Current Visit: Yes Status: Acute Code(s): I95.9 - HYPOTENSION, UNSPECIFIED SNOMED Code(s): 95940188 Plan: 1. Continue symptomatic and supportive care 2. Avoid hepatotoxic medications 3. Alcohol abstinence 4. Daily CMP 5. Acute hepatitis panel was ordered and nonreactive 6. Repeat INR Thank you for this consultation, we will continue to follow. Dr. Dung Jones I agree with the dictator's note, documented as a scribe by Nicole Puente.
--- NOTE | 2022-03-15 15:23 | P.PN ---
Subjective Progress Note Date: 03/15/22 Principal diagnosis: Lactic acidosis Patient sitting up in a chair. Dysphagia is persisting. When questioned denies abdominal pain. He was started on a pured diet and is tolerating that well. Liver enzymes trending downwards today. He is afebrile. Has had some hypotension again today. GI consult noted. Objective - Vital Signs Vital signs: Vital Signs Temp 97.8 F 03/15/22 14:10 Pulse 86 03/15/22 14:10 Resp 36 H 03/15/22 14:10 BP 91/31 03/15/22 14:10 Pulse Ox 88 L 03/15/22 14:10 Intake & Output 03/14/22 03/15/22 03/15/22 18:59 06:59 18:59 Intake Total 5887.989 1252 760 Output Total 858 545 575 Balance 260.873 535 185 Weight 95 kg Intake: IV 1060 960 640 Dextrose 5% in Water 1, 375 000 ml @ 125 mls/hr IV . Q9H12M [facility] with Sodium Bicarb (1 Meq/ml) 150 ml Rx#:[id number] Sodium Chloride 0.9% 1, 685 960 640 000 ml @ 80 mls/hr IV . [id number] [facility] Rx#:[id number] Intake, IV Titration 58.873 Amount Heparin Sod,Pork in 0.45% 58.873 NaCl 25,000 unit In 0.45 % NaCl 1 250ml.bag @ 18 UNITS/KG/HR 17.962 mls/hr IV .[id number] [facility] Rx#: [id number] Oral 120 120 Output: Urine 858 545 575 Other: Voiding Method Indwelling Catheter Indwelling Catheter Indwelling Catheter - Exam Abdomen: Soft, nontender, nondistended - Labs CBC & Chem 7: 03/15/22 07:19 03/15/22 07:19 Labs: Abnormal Lab Results - Last 24 Hours (Table) 03/15/22 03/15/22 03/15/22 Range/Units 07:19 07:19 07:19 WBC 12.3 H (3.8-10.6) k/uL Hct 53.6 H (39.0-53.0) % MCV 103.2 H (80.0-100.0) fL MCHC 30.6 L (31.0-37.0) g/dL APTT 36.3 H (22.0-30.0) sec BUN 46 H (9-20) mg/dL Creatinine 2.06 H (0.66-1.25) mg/dL Calcium 7.1 L (8.4-10.2) mg/dL Total Bilirubin 13.1 H (0.2-1.3) mg/dL AST 1673 H (17-59) U/L ALT 1655 H (4-49) U/L Total Protein 6.1 L (6.3-8.2) g/dL Albumin 3.0 L (3.5-5.0) g/dL Urine Protein (Negative) Urine Glucose (UA) (Negative) Urine Blood (Negative) Urine Bilirubin (Negative) Ur Leukocyte Esterase (Negative) Urine RBC (0-5) /hpf Urine WBC (0-5) /hpf Urine Bacteria (None) /hpf Urine Mucus (None) /hpf 03/15/22 Range/Units 10:00 WBC (3.8-10.6) k/uL Hct (39.0-53.0) % MCV (80.0-100.0) fL MCHC (31.0-37.0) g/dL APTT (22.0-30.0) sec BUN (9-20) mg/dL Creatinine (0.66-1.25) mg/dL Calcium (8.4-10.2) mg/dL Total Bilirubin (0.2-1.3) mg/dL AST (17-59) U/L ALT (4-49) U/L Total Protein (6.3-8.2) g/dL Albumin (3.5-5.0) g/dL Urine Protein Trace H (Negative) Urine Glucose (UA) 2+ H (Negative) Urine Blood Moderate H (Negative) Urine Bilirubin 2+ H (Negative) Ur Leukocyte Esterase Small H (Negative) Urine RBC 29 H (0-5) /hpf Urine WBC 13 H (0-5) /hpf Urine Bacteria Rare H (None) /hpf Urine Mucus Rare H (None) /hpf Microbiology - Last 24 Hours (Table) 03/13/22 09:15 Urine Culture - Final Urine,Voided Assessment and Plan (1) Lactic acid acidosis Narrative/Plan: 56-year-old male with lactic acidosis. We were consulted regarding concern for possible bowel ischemia. Generalized hypoperfusion because of the patient's hypotension and extensive pulmonary emboli remain the most likely etiology for lactic acidosis. Clinically significant bowel ischemia not thought to be present. Continue diet as ordered. We'll follow. Current Visit: Yes Status: Acute Code(s): E87.2 - ACIDOSIS SNOMED Code(s): 26192561
[2022-03-15] MEDS: HEPARIN SOD,PORK IN 0.45% NACL 25,000 UNIT in 0.45% NACL 1 250ML.BAG IV SCH (15:45)
--- NOTE | 2022-03-15 22:38 | CT ---
EXAMINATION TYPE: CT brain wo con DATE OF EXAM: 03/15/2022 COMPARISON: 03/12/2022 HISTORY: F/U CVA CT DLP: 1152.4 mGycm Automated exposure control for dose reduction was used. There is poorly marginated 4 cm area of hypodensity in the left temporal lobe and left internal capsu le consistent with subacute infarct. There is no mass effect or midline shift. No evidence of intracr anial hemorrhage. Calvarium is intact. IMPRESSION: Subacute left hemisphere infarct involving the temporal lobe and internal capsule without change in s ize compared to recent exam.
--- NOTE | 2022-03-15 22:48 | P.PN ---
Subjective 56-year-old male with heavy all call abuse history came in with complaints of right-sided facial droop and right arm weakness along with slurred speech. Patient had these symptoms going on and off for about 3 days. Patient is also found to be in atrial fibrillation. Patient denied any chest pain or shortness of breath but patient is is for incidentally found to have bilateral pulmonary emboli patient denied any leg pain. Patient has highly elevated liver enzymes related to heavy alcohol use. AST and ALT consistent with the alcoholic liver disease patient has elevated MCV as well. Patient was on Cardizem drip which is presently discontinued and cardiology evaluated the patient echo is pending. Patient the has significant metabolic acidosis, both anion gap and non-anion gap metabolic acidosis. I'll obtain lactic acid level. Patient probably has cirrhosis as well. She has a compensated metabolic alkalosis. 03/14/2022 Patient remains in the ICU in critical condition. He is aphasic but Can make it through gestures , with mumbles. He has severe right hemiplegia. He has been on respiratory symptoms and no abdominal pain or distention. Blood pressure is 91/72. He is saturating 98% on 6 L In the morning he was on Cardizem drip which is switched Wellbutrin. Also is on heparin drip. He has a Lewis catheter. He still nothing by mouth. WBCs is 20,000, creatinine 3.2, liver enzymes elevated with AST 4086 and ALT 2042. Swallow evaluation showing no aspiration. Ejection fraction showing a 20-25% with global hypokinesia and LV thrombosis. CTA showed scattered pulmonary emboli with pulmonary infarction. CT of the brain showing possible acute left parietal infarct 03/15/2022 patient clinically looks the same or maybe slight improvement. He is awake but dysphasic and dysarthric. His total has right hemiplegia. Repeat CT showing similar subacute left temporal infarct with no change. Neurologist team so following the patient closely. Also he is continued on heparin drip but switched today and to Eliquis for his pulmonary embolism and left ventricular femoral thrombosis. Also amiodarone was switched from IV effusion and to oral form for his new onset atrial fibrillation. Liver enzymes aren't Cueva improving secondary to alcoholic hepatitis. GI team evaluation today. Echocardiogram showing cardiomyopathy with ejection fraction 20-25%, however patient will need cardiac cath when kidney function improved per her licensed psychiatric technician. Creatinine trending down today 3.2 down to 2.0. The biopsy improved also down to 12.3. Patient still has a Lewis catheter with evidence of hematuria however hemoglobin stable and normal 16. Flotation Tender him on the case Objective - Vital Signs Vital signs: Vital Signs Temp 98.1 F 03/15/22 08:00 Pulse 97 03/15/22 10:00 Resp 19 03/15/22 10:00 BP 103/72 03/15/22 10:00 Pulse Ox 94 L 03/15/22 10:00 Intake & Output 03/14/22 03/15/22 03/15/22 18:59 06:59 18:59 Intake Total 1041.675 3109 320 Output Total 858 545 275 Balance 260.873 535 45 Weight 95 kg Intake: IV 1060 960 320 Dextrose 5% in Water 1, 375 000 ml @ 125 mls/hr IV . Q9H12M [facility] with Sodium Bicarb (1 Meq/ml) 150 ml Rx#:[id number] Sodium Chloride 0.9% 1, 685 960 320 000 ml @ 80 mls/hr IV . [id number] [facility] Rx#:[id number] Intake, IV Titration 58.873 Amount Heparin Sod,Pork in 0.45% 58.873 NaCl 25,000 unit In 0.45 % NaCl 1 250ml.bag @ 18 UNITS/KG/HR 17.962 mls/hr IV .[id number] [facility] Rx#: [id number] Oral 120 Output: Urine 858 545 275 Other: Voiding Method Indwelling Catheter Indwelling Catheter Indwelling Catheter - Exam - GENERAL: The patient is alert and awake, he follows commands. Patient is apha sic. Not look in distress HEENT: Pupils are round and equally reacting to light. EOMI. No scleral icterus. No conjunctival pallor. Normocephalic, atraumatic. No pharyngeal erythema. No thyromegaly. CARDIOVASCULAR: S1 and S2 present. No murmurs, rubs, or gallops. PULMONARY: Chest is clear to auscultation, no wheezing or crackles. ABDOMEN: Soft, nontender, nondistended, normoactive bowel sounds. No palpable organomegaly. MUSCULOSKELETAL: No joint swelling or deformity. EXTREMITIES: No cyanosis, clubbing, or pedal edema. -NEUROLOGICAL: Patient is aphasic. He has tried hemiplegia, barely moving his right side. SKIN: No rashes. no petechiae. - Labs CBC & Chem 7: 03/15/22 07:19 03/15/22 07:19 Labs: Abnormal Lab Results - Last 24 Hours (Table) 03/14/22 03/14/22 03/14/22 Range/Units 01:46 09:48 11:32 WBC (3.8-10.6) k/uL Hct (39.0-53.0) % MCV (80.0-100.0) fL MCHC (31.0-37.0) g/dL APTT 44.9 H (22.0-30.0) sec BUN (9-20) mg/dL Creatinine (0.66-1.25) mg/dL Calcium (8.4-10.2) mg/dL Total Bilirubin (0.2-1.3) mg/dL AST 4086 H (17-59) U/L ALT (4-49) U/L Total Protein (6.3-8.2) g/dL Albumin (3.5-5.0) g/dL HDL Cholesterol 9.20 L (40.00-60.00) mg/dL Urine Protein (Negative) Urine Glucose (UA) (Negative) Urine Blood (Negative) Urine Bilirubin (Negative) Ur Leukocyte Esterase (Negative) Urine RBC (0-5) /hpf Urine WBC (0-5) /hpf Urine Bacteria (None) /hpf Urine Mucus (None) /hpf 03/15/22 03/15/22 03/15/22 Range/Units 07:19 07:19 07:19 WBC 12.3 H (3.8-10.6) k/uL Hct 53.6 H (39.0-53.0) % MCV 103.2 H (80.0-100.0) fL MCHC 30.6 L (31.0-37.0) g/dL APTT 36.3 H (22.0-30.0) sec BUN 46 H (9-20) mg/dL Creatinine 2.06 H (0.66-1.25) mg/dL Calcium 7.1 L (8.4-10.2) mg/dL Total Bilirubin 13.1 H (0.2-1.3) mg/dL AST 1673 H (17-59) U/L ALT 1655 H (4-49) U/L Total Protein 6.1 L (6.3-8.2) g/dL Albumin 3.0 L (3.5-5.0) g/dL HDL Cholesterol (40.00-60.00) mg/dL Urine Protein (Negative) Urine Glucose (UA) (Negative) Urine Blood (Negative) Urine Bilirubin (Negative) Ur Leukocyte Esterase (Negative) Urine RBC (0-5) /hpf Urine WBC (0-5) /hpf Urine Bacteria (None) /hpf Urine Mucus (None) /hpf 03/15/22 Range/Units 10:00 WBC (3.8-10.6) k/uL Hct (39.0-53.0) % MCV (80.0-100.0) fL MCHC (31.0-37.0) g/dL APTT (22.0-30.0) sec BUN (9-20) mg/dL Creatinine (0.66-1.25) mg/dL Calcium (8.4-10.2) mg/dL Total Bilirubin (0.2-1.3) mg/dL AST (17-59) U/L ALT (4-49) U/L Total Protein (6.3-8.2) g/dL Albumin (3.5-5.0) g/dL HDL Cholesterol (40.00-60.00) mg/dL Urine Protein Trace H (Negative) Urine Glucose (UA) 2+ H (Negative) Urine Blood Moderate H (Negative) Urine Bilirubin 2+ H (Negative) Ur Leukocyte Esterase Small H (Negative) Urine RBC 29 H (0-5) /hpf Urine WBC 13 H (0-5) /hpf Urine Bacteria Rare H (None) /hpf Urine Mucus Rare H (None) /hpf Microbiology - Last 24 Hours (Table) 03/13/22 09:15 Urine Culture - Final Urine,Voided Assessment and Plan Assessment: Acute left parietal/temporal stroke with right hemiplegia, most likely embolic from atrial fibrillation and LV thrombosis New-onset atrial fibrillation Bilateral scattered pulmonary emboli's with pulmonary infarction Acute kidney injury Alcoholic abuse at risk of withdrawal Cardiomyopathy with ejection fraction 20-25% Left ventricular mural thrombus Alcoholic hepatitis Plan: This is a pleasant 56 years old male who presents with multiple problems including CVA, A. fib, PE, DEVAN, CMP Switch heparin drip and Eliquis Continue with oral amiodarone per licensed psychiatric technician Continue with CIWA protocol amphetamine, patient currently not on active withdrawal symptoms. Continue with normal saline Several consultants. Following the patient including pulmonary/critical care, vendor relationship manager, neurologist, licensed psychiatric technician, surgeon's both vascular and general. GI team consult Labs and medication were reviewed.. Continue same treatment. Continue with symptomatic treatment. Resume home medication. Monitor lytes and vitals. DVT and GI prophylaxis. Further recommendationsas per clinical course of the patient DVT prophylaxis: heparin GI Prophylaxis: Pepcid PT/OT: Pending Prognosis is guarded
--- NOTE | 2022-03-16 00:03 | P.PN ---
Subjective Progress Note Date: 03/15/22 Patient was seen for a follow-up. Patient continues to be severely dysarthric, with some aphasia. Denies any headache. Denies any new focal symptoms. No nausea vomiting. Objective - Vital Signs Vital signs: Vital Signs Temp 97.8 F 03/15/22 14:10 Pulse 82 03/15/22 18:00 Resp 24 03/15/22 18:00 BP 117/74 03/15/22 18:00 Pulse Ox 95 03/15/22 18:00 Intake & Output 03/14/22 03/15/22 03/15/22 18:59 06:59 18:59 Intake Total 0554.553 5208 1000 Output Total 858 545 695 Balance 260.873 535 305 Weight 95 kg Intake: IV 1060 960 880 Dextrose 5% in Water 1, 375 000 ml @ 125 mls/hr IV . Q9H12M [facility] with Sodium Bicarb (1 Meq/ml) 150 ml Rx#:[id number] Sodium Chloride 0.9% 1, 685 960 880 000 ml @ 80 mls/hr IV . [id number] [facility] Rx#:[id number] Intake, IV Titration 58.873 Amount Heparin Sod,Pork in 0.45% 58.873 NaCl 25,000 unit In 0.45 % NaCl 1 250ml.bag @ 18 UNITS/KG/HR 17.962 mls/hr IV .[id number] [facility] Rx#: [id number] Oral 120 120 Output: Urine 858 545 695 Other: Voiding Method Indwelling Catheter Indwelling Catheter Indwelling Catheter - Exam Patient is alert and awake. Speech is very dysarthric, some aphasia. Patient can name some objects presented like pen, glasses. He does point to the window and the door. Comprehension is largely intact. On cranial nerve examination pupils are equal, round and reacting, visual benavides are full. Patient has right facial weakness, central type. Tongue protrudes to the midline. Facial sensation is normal On muscle strength testing (right/left) deltoid 4/5, biceps 4-/5, triceps 5-/5, application analyst 2/5, ankle dorsiflexion 2-3-/5, hip flexion 3/5. Patient has right pronator drift and it hits the bed. Sensory is decreased for touch in the right arm and right leg as compared to the contralateral side. Cerebellar functions could not be tested on the right. No ataxia in the left. - Labs CBC & Chem 7: 03/15/22 07:19 03/15/22 07:19 Labs: Abnormal Lab Results - Last 24 Hours (Table) 03/15/22 03/15/22 03/15/22 Range/Units 07:19 07:19 07:19 WBC 12.3 H (3.8-10.6) k/uL Hct 53.6 H (39.0-53.0) % MCV 103.2 H (80.0-100.0) fL MCHC 30.6 L (31.0-37.0) g/dL APTT 36.3 H (22.0-30.0) sec BUN 46 H (9-20) mg/dL Creatinine 2.06 H (0.66-1.25) mg/dL Calcium 7.1 L (8.4-10.2) mg/dL Total Bilirubin 13.1 H (0.2-1.3) mg/dL AST 1673 H (17-59) U/L ALT 1655 H (4-49) U/L Total Protein 6.1 L (6.3-8.2) g/dL Albumin 3.0 L (3.5-5.0) g/dL Urine Protein (Negative) Urine Glucose (UA) (Negative) Urine Blood (Negative) Urine Bilirubin (Negative) Ur Leukocyte Esterase (Negative) Urine RBC (0-5) /hpf Urine WBC (0-5) /hpf Urine Bacteria (None) /hpf Urine Mucus (None) /hpf 03/15/22 Range/Units 10:00 WBC (3.8-10.6) k/uL Hct (39.0-53.0) % MCV (80.0-100.0) fL MCHC (31.0-37.0) g/dL APTT (22.0-30.0) sec BUN (9-20) mg/dL Creatinine (0.66-1.25) mg/dL Calcium (8.4-10.2) mg/dL Total Bilirubin (0.2-1.3) mg/dL AST (17-59) U/L ALT (4-49) U/L Total Protein (6.3-8.2) g/dL Albumin (3.5-5.0) g/dL Urine Protein Trace H (Negative) Urine Glucose (UA) 2+ H (Negative) Urine Blood Moderate H (Negative) Urine Bilirubin 2+ H (Negative) Ur Leukocyte Esterase Small H (Negative) Urine RBC 29 H (0-5) /hpf Urine WBC 13 H (0-5) /hpf Urine Bacteria Rare H (None) /hpf Urine Mucus Rare H (None) /hpf Microbiology - Last 24 Hours (Table) 03/13/22 09:15 Urine Culture - Final Urine,Voided Assessment and Plan Assessment: * Acute ischemic stroke involving left deep parietal region, likely embolic. Patient clinically has significant dysarthria, some expressive aphasia, right hemiparesis with right hemisensory loss. * New-onset/diagnosed atrial fibrillation * Pulmonary embolism. * Acute kidney injury * Macrocytosis * Acute hepatic injury * History of alcoholism. Plan: * Patient's heparin has been discontinued. Patient started on high-dose Eliquis 10 mg twice a day, and will decrease dose to 5 mg twice a day from 03/21/2022. Cardiology on board. * Repeat CT head without contrast was performed today. It revealed subacute left hemispheric infarct involving the temporal lobe and left internal capsule without change in size compared to the recent exam. No intracranial hemorrhage. I reviewed CT head and agree with the findings. * 2-D echo with bubble study was performed 03/13/2022, which revealed severely reduced left ventricular systolic function, with EF of 20-25%. There is possible left ventricular apical mural thrombus. * CTA of head and neck showed no significant stenosis. * PT OT, speech therapy. * Maintain blood pressure systolic <150, but avoid hypotension or systolic blood pressure <110 (unless indictated from cardiac point). * Hemoglobin A1c 5.2, lipid panel cholesterol 61, LDL 36, HDL 9.2 and triglycerides 78. No indication for statins. * B12 > 2000, folate 16.10 (macrocytosis likely due to alcoholism). * Continue thiamine, multivitamins. Watch for alcohol withdrawal. * Medical management as per IM, critical care and other specialties. * Speech therapy, PT and OT. Patient is on pured, nectar thick diet. * Neurologically clear for transfer to rehab. Patient probably a candidate for inpatient rehab. Suggest consult Dr. Ríos.
[2022-03-16] MEDS: LORazepam 2 MG/ML INJ IV PRN ×2 (01:47→22:18)
[2022-03-16] MEDS: SODIUM CHLORIDE 0.9% 1,000 ML IV SCH ×2 (01:48→10:31)
[2022-03-16 08:11] LABS: Albumin 2.6 g/dL (3.5-5.0); Calcium 7.2 mg/dL (8.4-10.2); Potassium 3.4 mmol/L (3.5-5.1); Total Protein 5.5 g/dL (6.3-8.2)
[2022-03-16 08:18] LABS: Total Bilirubin 15.2 mg/dL (0.2-1.3)
[2022-03-16] MEDS: FAMOTIDINE 20 MG/2 ML VIAL IV SCH (09:06)
[2022-03-16] MEDS: THIAMINE 100 MG TAB PO SCH ×2 (09:06→20:33)
[2022-03-16] MEDS: APIXABAN 5 MG TAB PO SCH ×2 (09:06→20:33)
[2022-03-16] MEDS: AMIODARONE 200 MG TAB PO SCH ×2 (09:06→20:33)
[2022-03-16] MEDS ORDERED: POTASSIUM CHLORIDE ER 20 MEQ TAB.ER PO STA (10:39)
--- NOTE | 2022-03-16 10:41 | P.PN ---
Subjective Patient is seen in follow-up for acute kidney injury. Creatinine peaked at 3.2 at this admission and is 1.25 today. Nonoliguric. Receiving normal saline. On pureed diet. Blood pressure stable. Awake. On 2 L nasal cannula. Vital signs are stable. General: Awake. No acute distress. HEENT: Head exam is unremarkable. On nasal cannula. LUNGS: Breath sounds decreased. HEART: Rate and Rhythm are regular. ABDOMEN: Soft, no distention. EXTREMITITES: No edema. Objective - Vital Signs Vital signs: Vital Signs Temp 97.9 F 03/16/22 08:00 Pulse 79 03/16/22 08:00 Resp 16 03/16/22 08:00 BP 97/71 03/16/22 08:00 Pulse Ox 92 L 03/16/22 08:00 Intake & Output 03/15/22 03/16/22 03/16/22 18:59 06:59 18:59 Intake Total 1080 800 80 Output Total 735 625 290 Balance 345 175 -210 Weight 95.9 kg Intake: IV 960 800 80 Sodium Chloride 0.9% 1, 960 800 80 000 ml @ 80 mls/hr IV . [id number] [facility] Rx#:[id number] Oral 120 Output: Urine 735 625 290 Other: Voiding Method Indwelling Catheter Indwelling Catheter Indwelling Catheter - Labs CBC & Chem 7: 03/15/22 07:19 03/16/22 07:40 Labs: Abnormal Lab Results - Last 24 Hours (Table) 03/16/22 Range/Units 07:40 Potassium 3.4 L (3.5-5.1) mmol/L BUN 32 H (9-20) mg/dL Calcium 7.2 L (8.4-10.2) mg/dL Total Bilirubin 15.2 H* (0.2-1.3) mg/dL AST 743 H (17-59) U/L ALT 1077 H (4-49) U/L Total Protein 5.5 L (6.3-8.2) g/dL Albumin 2.6 L (3.5-5.0) g/dL Assessment and Plan Plan: Assessment: 1. Acute kidney injury secondary to ATN secondary to hemodynamic instability. Also component of contrast-induced acute kidney injury. Patient received IV contrast on 03/12/2022. Creatinine was 1.5 on admission and peaked at 3.28 - 1.25 today. Unknown baseline renal function. Now nonoliguric. No hydronephrosis noted on imaging. UPC 0.11. 2. A. fib with RVR status post Cardizem and amiodarone drip. Now on oral amiodarone. 3. PE and pulmonary infarct on anticoagulation. 4. Metabolic acidosis secondary to acute kidney injury and lactic acidosis. Improved. 5. Hyperkalemia secondary to acute kidney injury and metabolic acidosis. Hemolyzed sample. Potassium low today. 6. Alcohol abuse. 7. Acute CVA. 8. Cardiomyopathy with ejection fraction of 20-25%. Questionable left ventricular thrombus present. 9. ?Ischemic bowel. Surgery following Plan: Hep-Lock IV fluids. Replace potassium. Avoid nephrotoxins. Continue to monitor renal function and urine output. Monitor volume status closely due to depressed EF.
--- NOTE | 2022-03-16 12:28 | P.PN ---
Subjective Progress Note Date: 03/16/22 CHIEF COMPLAINT: Lactic acidosis HISTORY OF PRESENT ILLNESS: Patient transferred out of the ICU yesterday. Patient denies any abdominal pain. Denies any nausea vomiting. Patient currently on a pured diet and is tolerating it. He is followed by speech therapy. Patient is been mildly hypotensive. Last bowel movement recorded on 03/13. He is afebrile. WBC is down from 20.7-12.3 hemoglobin 16.4 platelets 152 sodium is 139 potassium 3.4 creatinine 1.25 total bilirubin is up from 13.1-15.2 LFTs are trending down. Patient's urine is dark and possibly slightly blood- tinged PHYSICAL EXAM: VITAL SIGNS: Reviewed. GENERAL: Well-developed in no acute distress. HEENT: sclera icterus present. Extraocular movements grossly intact. Moist buccal mucosa. Head is atraumatic, normocephalic. ABDOMEN: Soft. Nondistended. Nontender. NEUROLOGIC: Alert and oriented. Cranial nerves II through XII grossly intact. Skin: Jaundiced ASSESSMENT: 1. Lactic acidosis and concerns of possible bowel ischemia. Generalized hypoperfusion because of the patient's hypotension and extensive pulmonary emboli remain the most likely etiology for lactic acidosis. Clinically significant bowel ischemia not thought to be present 2. Alcoholic hepatitis 3. CVA 4. Pulmonary embolism 5. Pulmonary infarct 6. Atrial fibrillation PLAN: -Continue pureed diet -Continue supportive care Physician Asphalt Screed Operator note has been reviewed by physician. Signing provider agrees with the documented findings, assessment, and plan of care. I have personally seen and examined the patient, reviewed the RESEARCH QUALITY ASSURANCE ANALYST /PAs history, exam and MDM and agree with the assessment and plan as written. Based on total visit time, I have performed more than 50% of the visit. As above: Patient doing well today. No abdominal pain. Tolerating diet. We'll sign off. Please call if needed. Objective - Vital Signs Vital signs: Vital Signs Temp 97.9 F 03/16/22 08:00 Pulse 79 03/16/22 08:00 Resp 16 03/16/22 08:00 BP 97/71 03/16/22 08:00 Pulse Ox 92 L 03/16/22 08:00 Intake & Output 03/15/22 03/16/22 03/16/22 18:59 06:59 18:59 Intake Total 1080 800 80 Output Total 735 625 290 Balance 345 175 -210 Weight 95.9 kg Intake: IV 960 800 80 Sodium Chloride 0.9% 1, 960 800 80 000 ml @ 80 mls/hr IV . [id number] [facility] Rx#:[id number] Oral 120 Output: Urine 735 625 290 Other: Voiding Method Indwelling Catheter Indwelling Catheter Indwelling Catheter - Labs CBC & Chem 7: 03/15/22 07:19 03/16/22 07:40 Labs: Abnormal Lab Results - Last 24 Hours (Table) 03/16/22 Range/Units 07:40 Potassium 3.4 L (3.5-5.1) mmol/L BUN 32 H (9-20) mg/dL Calcium 7.2 L (8.4-10.2) mg/dL Total Bilirubin 15.2 H* (0.2-1.3) mg/dL AST 743 H (17-59) U/L ALT 1077 H (4-49) U/L Total Protein 5.5 L (6.3-8.2) g/dL Albumin 2.6 L (3.5-5.0) g/dL
--- NOTE | 2022-03-16 13:11 | P.CONS ---
History of Present Illness - Chief Complaint Gait disturbance, right hemiplegia - History of Present Illness I had the opportunity to see patient for inpatient rehab consultation with regard to gait disturbance. Patient admitted to [facility] May to acute onset right-sided weakness but of present of 3 days' duration, to Dr. Brown. Seen in consultation by Dr. Aguilar for atrial fibrillation with RVR. Seen by Dr. Elizalde Re: For bilateral PE. Seen by Dr. De Paz for acute kidney injury. Seen by Dr. Wylie for ICU and pulmonary management. Seen by Dr. rodrigues who notes lactic acidosis. Seen by Prakash Tafoya. Seen by neurology, Dr. Bear for the stroke. Workup includes follow-up head CT which demonstrates left temporal and internal capsule infarcts of similar size. Chest x-ray notes right base atelectasis versus infiltrate. Computed tomography scan abdomen and pelvis significant only for scoliosis and degenerative change spine spine ultrasound abdomen within normal limits. CTA of chest demonstrates bilateral PE as well as possible right lower lobe infarct. His started therapies. PT reports maximal assistance for bed mobility moderate assistance for transfer. Unable take steps. Balance sitting fair static and poor dynamic, standing fair static and poor dynamic. OT reports moderate assistance for upper dressing and bathing, total assistance for lower dressing and toileting and two-person maximal assistance functional mobility. Speech therapy working on safe swallow. Previous functional history as elicited patient: (56) white male single lives in a first-floor apartment alone. Works part-time. Describes independent with own cooking, laundry, driving, tub bath and gait with a cane. Does not have PCP, currently working on it. Denies tobacco or alcohol. Review of Systems Review of systems: ENT: Dry Blood from around right nares and mouth. Eyes: Denies discharge or photophobia. Cardiac: Denies chest pain or palpitation. Pulmonary: Denies cough or shortness of breath. Gastrointestinal: Denies nausea, emesis, constipation, diarrhea. Genitourinary: Denies discharge or frequency. Musculoskeletal: Denies muscle or bone aches. Neurologic: Right-sided weakness and numbness. Speech disturbance. Endocrine: Denies shakes or sweats. Oncology: Denies cancers. Dermatologic: Denies rash, itching, pruritus. ALLERGY/immunology: Denies sneezes, rashes. Past Medical History Past Medical History: No Reported History History of Any Multi-Drug Resistant Organisms: None Reported Past Surgical History: No Surgical Hx Reported Past Anesthesia/Blood Transfusion Reactions: No Reported Reaction Past Psychological History: No Psychological Hx Reported Smoking Status: Former smoker Past Alcohol Use History: Abuse, Daily Past Drug Use History: None Reported - Past Family History Father Family Medical History: Myocardial Infarction ([place]) Additional Family Medical History / Comment(s): Pt states his father had "three heart attacks" Mother History Unknown: Yes Medications and Allergies Home Medications Medication Instructions Recorded Confirmed Type No Known Home Medications 03/12/22 03/12/22 History Allergies Allergy/AdvReac Type Severity Reaction Status Date / Time No Known Allergies Allergy Verified 03/12/22 15:57 Physical Exam Vitals: Vital Signs Temp Pulse Pulse Pulse Resp BP BP 03/16/22 12:00 98.4 F 56 L 20 116/61 03/16/22 08:00 97.9 F 79 16 97/71 03/16/22 04:00 98 F 82 18 96/72 03/16/22 00:00 97.5 F L 92 21 102/83 03/15/22 21:30 88 22 95/85 03/15/22 21:00 84 106/90 03/15/22 20:00 98.2 F 96 96 22 105/83 105/83 03/15/22 19:00 90 21 106/85 03/15/22 18:00 82 24 117/74 03/15/22 17:00 91 20 102/22 03/15/22 16:00 81 28 H 97/76 03/15/22 15:00 85 37 H 87/74 03/15/22 14:10 97.8 F 86 36 H 91/31 03/15/22 14:00 80 17 89/77 03/15/22 13:40 93 20 72/59 Pulse Ox 03/16/22 12:00 95 03/16/22 08:00 92 L 03/16/22 04:00 95 03/16/22 00:00 97 03/15/22 21:30 97 03/15/22 21:00 03/15/22 20:00 97 03/15/22 19:00 98 03/15/22 18:00 95 03/15/22 17:00 98 03/15/22 16:00 100 03/15/22 15:00 99 03/15/22 14:10 88 L 03/15/22 14:00 94 L 03/15/22 13:40 92 L Intake and Output 03/15/22 03/16/22 03/16/22 22:59 06:59 14:59 Intake Total 560 560 80 Output Total 400 385 290 Balance 160 175 -210 Intake: IV 560 560 80 Sodium Chloride 0.9% 1, 560 560 80 000 ml @ 80 mls/hr IV . [id number] [facility] Rx#:[id number] Output: Urine 400 385 290 Other: Voiding Method Indwelling Catheter Indwelling Catheter Indwelling Catheter Weight 95.9 kg Skin: Good color, texture, turgor. General: Medium build and comfortable appearance. Head: Normocephalic, atraumatic. Eyes: Symmetric. Pupils equal round. Ears: Symmetric. Hearing within normal limits. Mouth: Clear. Dry blood around right side of mouth. Neck: Supple. Carotid without bruit. Cardiac: Regular rate and rhythm. Lungs: Clear anteriorly and posteriorly. Abdomen: Soft active nontender. Extremities: Normal tone. Neurological: Mental status: Nonfluent aphasia. Cranial nerves: Right facial weakness. Motor: Normal strength and isolation left side. Right arm poor and right leg poor extension synergy. Sensation: Intact left side. DTRs: Diminished right-sided. Mobility: Requires physical assist for bed mobility. Results CBC & Chem 7: 03/15/22 07:19 03/16/22 07:40 Labs: Abnormal Lab Results - Last 24 Hours (Table) 03/16/22 Range/Units 07:40 Potassium 3.4 L (3.5-5.1) mmol/L BUN 32 H (9-20) mg/dL Calcium 7.2 L (8.4-10.2) mg/dL Total Bilirubin 15.2 H* (0.2-1.3) mg/dL AST 743 H (17-59) U/L ALT 1077 H (4-49) U/L Total Protein 5.5 L (6.3-8.2) g/dL Albumin 2.6 L (3.5-5.0) g/dL Assessment and Plan Plan: Impression: Gait disturbance due to stroke result in right hemiplegia and aphasia. Plan: At this time PT, OT, MANAGER FIELD ongoing. We'll continue to follow with yourself and review patient's progress, [place] a.m. My main concern at this time would be any supports for return to home as would anticipate this need.
--- NOTE | 2022-03-16 13:14 | P.PN ---
Subjective Progress Note Date: 03/16/22 Principal diagnosis: Pulmonary embolism 56-year-old patient who came in with a CVA, mild bilateral pulmonary embolism, atrial fibrillation was noted to have elevated LFTs and total bilirubin. He has a significant history of alcoholism. No previous known history of underlying l iver disease although labs are consistent with a alcoholic liver disease. Today he is without any complaints. He is still aphasic with dysarthria. Right-sided weakness. Denies any abdominal pain, nausea or vomiting. Total bilirubin 15.2 up from 13.1, AST and ALT are both improving. Objective - Vital Signs Vital signs: Vital Signs Temp 98 F 03/16/22 04:00 Pulse 82 03/16/22 04:00 Resp 18 03/16/22 04:00 BP 96/72 03/16/22 04:00 Pulse Ox 95 03/16/22 04:00 Intake & Output 03/15/22 03/16/22 03/16/22 18:59 06:59 18:59 Intake Total 1080 800 Output Total 735 625 Balance 345 175 Weight 95.9 kg Intake: IV 960 800 Sodium Chloride 0.9% 1, 960 800 000 ml @ 80 mls/hr IV . [id number] [facility] Rx#:[id number] Oral 120 Output: Urine 735 625 Other: Voiding Method Indwelling Catheter Indwelling Catheter - Exam General appearance: The patient is alert, oriented, appears in no acute distress. HET: Head is normocephalic and atraumatic. Conjunctiva pink. Sclera icteric. Neck: Supple without lymphadenopathy. Abdomen: Soft, nontender, nondistended with bowel sounds. No guarding or rigidity. Extremities: Normal skin color and turgor. No pedal edema Skin: No rashes, jaundice Neurological: Right upper extremity weakness. Dysarthria aphasic. Alert and oriented x3. - Labs CBC & Chem 7: 03/15/22 07:19 03/16/22 07:40 Labs: Abnormal Lab Results - Last 24 Hours (Table) 03/15/22 03/15/22 03/15/22 Range/Units 07:19 07:19 07:19 WBC 12.3 H (3.8-10.6) k/uL Hct 53.6 H (39.0-53.0) % MCV 103.2 H (80.0-100.0) fL MCHC 30.6 L (31.0-37.0) g/dL APTT 36.3 H (22.0-30.0) sec BUN 46 H (9-20) mg/dL Creatinine 2.06 H (0.66-1.25) mg/dL Calcium 7.1 L (8.4-10.2) mg/dL Total Bilirubin 13.1 H (0.2-1.3) mg/dL AST 1673 H (17-59) U/L ALT 1655 H (4-49) U/L Total Protein 6.1 L (6.3-8.2) g/dL Albumin 3.0 L (3.5-5.0) g/dL Urine Protein (Negative) Urine Glucose (UA) (Negative) Urine Blood (Negative) Urine Bilirubin (Negative) Ur Leukocyte Esterase (Negative) Urine RBC (0-5) /hpf Urine WBC (0-5) /hpf Urine Bacteria (None) /hpf Urine Mucus (None) /hpf 03/15/22 Range/Units 10:00 WBC (3.8-10.6) k/uL Hct (39.0-53.0) % MCV (80.0-100.0) fL MCHC (31.0-37.0) g/dL APTT (22.0-30.0) sec BUN (9-20) mg/dL Creatinine (0.66-1.25) mg/dL Calcium (8.4-10.2) mg/dL Total Bilirubin (0.2-1.3) mg/dL AST (17-59) U/L ALT (4-49) U/L Total Protein (6.3-8.2) g/dL Albumin (3.5-5.0) g/dL Urine Protein Trace H (Negative) Urine Glucose (UA) 2+ H (Negative) Urine Blood Moderate H (Negative) Urine Bilirubin 2+ H (Negative) Ur Leukocyte Esterase Small H (Negative) Urine RBC 29 H (0-5) /hpf Urine WBC 13 H (0-5) /hpf Urine Bacteria Rare H (None) /hpf Urine Mucus Rare H (None) /hpf Assessment and Plan (1) Alcoholic hepatitis Narrative/Plan: 56-year-old who presented to the emergency department with right-sided weakness, slurring of his speech was noted to be in atrial fibrillation and had an elevated d-dimer. Patient had an acute stroke, multiple bilateral pulmonary emboli with infarct to the right lobe. On admission he was noted to have elevated total bilirubin as well as LFTs. He has a significant history of alcohol abuse. Lives at the bedside and states that he drinks several peers daily for many years. Patient states he quit drinking about 6 weeks ago. He denies any previous history of underlying liver disease or hepatitis. Patient has been hypotensive, positive lactic acid. Patient is likely presenting with underlying alcoholic cirrhosis of the liver with acute ischemic hepatitis. Current Visit: Yes Status: Acute Code(s): K70.10 - ALCOHOLIC HEPATITIS WITHOUT ASCITES SNOMED Code(s): 821329510 (2) Alcohol abuse Current Visit: Yes Status: Acute Code(s): F10.10 - ALCOHOL ABUSE, UNCOMPLICATED SNOMED Code(s): 74336005 (3) Atrial fibrillation with rapid ventricular response Current Visit: Yes Status: Acute Code(s): I48.91 - UNSPECIFIED ATRIAL FIBRILLATION SNOMED Code(s): 106253108325380 (4) Cerebrovascular accident (CVA) Current Visit: Yes Status: Acute Code(s): I63.9 - CEREBRAL INFARCTION, UNSPECIFIED SNOMED Code(s): 252619741 (5) Lactic acid acidosis Current Visit: Yes Status: Acute Code(s): E87.2 - ACIDOSIS SNOMED Code(s): 43472251 (6) Pulmonary embolism Current Visit: Yes Status: Acute Code(s): I26.99 - OTHER PULMONARY EMBOLISM WITHOUT ACUTE COR PULMONALE SNOMED Code(s): 12075716 (7) Pulmonary infarct Current Visit: Yes Status: Acute Code(s): I26.99 - OTHER PULMONARY EMBOLISM WITHOUT ACUTE COR PULMONALE SNOMED Code(s): 42427232 (8) Hypotension Current Visit: Yes Status: Acute Code(s): I95.9 - HYPOTENSION, UNSPECIFIED SNOMED Code(s): 16821807 Plan: 1. Continue symptomatic and supportive care 2. Avoid hepatotoxic medications 3. Alcohol abstinence 4. Daily CMP 5. Acute hepatitis panel was ordered and nonreactive 6. Patient's labs are consistent with alcoholic liver disease. Increase in total bilirubin likely related to underlying liver disease and and will plateau and start coming down. LFTs continue to trend down. 7. Patient to follow-up with gastroenterology upon discharge. Thank you for allowing us to participate in the care of the patient, the GI service will sign off, gastroenterology will not be available at the hospital this weekend and through next week. If further evaluation by gastroenterology is required the patient will need transfer as per the primary team's discretion. Dr. Dung Jones I agree with the dictator's note, documented as a scribe by Nicole Puente. MRI
[2022-03-16 13:18] LABS: INR 2.1 (<1.2); Prothrombin Time 21.2 sec (9.0-12.0)
--- NOTE | 2022-03-16 14:40 | P.PN ---
Subjective Progress Note Date: 03/16/22 Principal diagnosis: Acute pulmonary embolism and acute CVA. Patient was reevaluated today on 03/14/2022, patient remains in the ICU, clinically feeling better, lactic acidosis is improving. Sodium bicarb was discontinued today. Patient was given fluid bolus in the form of 0.9 normal saline, and he was placed on 0.9 normal saline at 1 25 mL/h. Urine output is marginal however improving since admission. Renal functioning peaked at 3.2 today. It was 1.5 on admission. Bicarb is improving it is 23 today. Patient remains on heparin liver enzymes remain elevated with AST of 4086 AST of 2023. Worse compared to admission. Patient remains nothing by mouth mostly because of failing bedside swallow evaluation. And he is being followed by general surgery for questionable bowel ischemia although the presentation does not seem to be a presentation of ischemic bowel. And clinically based on physical examination today, clearly the patient does not have a surgical abdomen. And he does have bowel sounds. WBC count today is 20.7. Hemoglobin is 14.7. PTT is subtherapeutic this morning. CT of abdomen and pelvis showed nonspecific gas pattern with air seen throughout several bowel loops. Patient was reevaluated today on 03/15/2022, he is basically about the same. Cont inues to have right-sided weakness and slightly impaired speech. Patient does not seem to be in any distress. He is on 4 L nasal cannula. Patient was reevaluated today by cardiology and he was placed on amiodarone by mouth for his atrial fibrillation. His liver enzymes are elevated, GI consultation is pending. His bilirubin went as high as 13. Recent ultrasound did not show much on the liver. May need to have repeat ultrasound of the liver that may be decided upon by gastroenterology on the case. Patient was reevaluated by speech therapy and he is now on pured diet. He remains on heparin for his pulmonary embolism, and I will transition the patient today to [facility]. And I plan to transfer the patient to 3 cells today on a monitor bed. Patient is not having any bowel movements, however abdomen is rather soft. His WBC count is 12.3 hemoglobin is 16.2 PTT is 36.3 electrolytes are normal renal profile is improving creatinine is down to 2.06 liver enzymes are trending down including AST of 1673, ALT of 1655, however his bilirubin is up to 13. Reevaluated today on 03/16/2022, patient is basically about the same, he is now on the regular medical floor, patient is on anticoagulation therapy, he is being followed by many consultants including neurology, cardiology, and in general surgery for his dilated bowel loops and ileus. Patient is doing well, no major change, he was seen by Dr. Ríos for possible rehab evaluation. At this point no active pulmonary issues except that the patient is on eliquis for pulmonary embolism. His bilirubin remains high at 15.2, the rest of his liver enzymes are improving. Neurologically the patient is about the same, continues to have e xpressive aphasia, and continues to have right-sided weakness especially in the right upper extremity, seems to be more dense weakness and I'll right upper extremity follow-up CT of the brain yesterday showed no change in his CVA/subacute infarct. Objective - Vital Signs Vital signs: Vital Signs Temp 98.4 F 03/16/22 12:00 Pulse 56 L 03/16/22 12:00 Resp 20 03/16/22 12:00 BP 116/61 03/16/22 12:00 Pulse Ox 95 03/16/22 12:00 Intake & Output 03/15/22 03/16/22 03/16/22 18:59 06:59 18:59 Intake Total 1080 800 80 Output Total 735 625 290 Balance 345 175 -210 Weight 95.9 kg Intake: IV 960 800 80 Sodium Chloride 0.9% 1, 960 800 80 000 ml @ 80 mls/hr IV . [id number] [facility] Rx#:[id number] Oral 120 Output: Urine 735 625 290 Other: Voiding Method Indwelling Catheter Indwelling Catheter Indwelling Catheter - Exam Physical Exam: Revealed 56-year-old white male in no distress, on room air. has expressive aphasia. Head: Atraumatic normocephalic. HEENT:[Neck is supple.] [No neck masses.] [No thyromegaly.] [No JVD.] Icteric sclerae is noted bilaterally Chest: [Clear throughout, no crackles, no rhonchi, no wheezes.] Cardiac Exam: [Normal S1 and S2, no S3 gallop, no murmur.] Abdomen: [Soft, nontender, no megaly, no rebound, no guarding, normal bowel sounds.] Extremities: [No clubbing, no edema, no cyanosis.] Neurological Exam: Right sided hemiparesis is noted, and patient has expressive aphasia. Musculoskeletal: No deformities, no limitation in range of motion but noted to be generally weak on the right side. Skin: No rashes. - Labs CBC & Chem 7: 03/15/22 07:19 03/16/22 07:40 Labs: Abnormal Lab Results - Last 24 Hours (Table) 03/16/22 03/16/22 Range/Units 07:40 12:12 PT 21.2 H (9.0-12.0) sec INR 2.1 H (<1.2) Potassium 3.4 L (3.5-5.1) mmol/L BUN 32 H (9-20) mg/dL Calcium 7.2 L (8.4-10.2) mg/dL Total Bilirubin 15.2 H* (0.2-1.3) mg/dL AST 743 H (17-59) U/L ALT 1077 H (4-49) U/L Total Protein 5.5 L (6.3-8.2) g/dL Albumin 2.6 L (3.5-5.0) g/dL Assessment and Plan Plan: Acute pulmonary embolism Acute CVA Acute kidney injury, improving most likely related to his hemodynamic instability on presentation. History of alcohol abuse Alcohol related liver disease Possibly ileus Hyperkalemia on presentation, resolved. Atrial fibrillation with RVR. Recommendation: Continue eliquis. Continue pure diet Continue IV fluid Continue to monitor electrolytes. And liver profile. As well as renal profile. I agree with rehab referral to inpatient rehab/[facility] We will follow the patient on when necessary basis. Time with Patient: Less than 30
--- NOTE | 2022-03-16 14:46 | P.PN ---
Subjective Progress Note Date: 03/16/22 Principal diagnosis: Severe cardiomyopathy The patient is a 56-year-old gentleman who did not see a physician in long time was admitted to the hospital with stroke with right-sided weakness and expressive aphasia as well as he was diagnosed with bilateral PE. He was found to be in atrial fibrillation of unknown etiology, paroxysmal versus persistent. Beside that he underwent an echocardiogram which revealed severe cardiomyopathy with possible LV thrombus. The patient was seen this morning. He continues to have expressive aphasia and right-sided weakness and he seems to be confused. On examination also he looks jaundiced. He is liver function tests are coming down but his beer but has been going up. Gastrointestinal services on the case. He continues to be in atrial fibrillation with controlled heart rate on amiodarone. Beside that he was on heparin IV but that was switched into oral anticoagulation. Objective - Vital Signs Vital signs: Vital Signs Temp 98.4 F 03/16/22 12:00 Pulse 56 L 03/16/22 12:00 Resp 20 03/16/22 12:00 BP 116/61 03/16/22 12:00 Pulse Ox 95 03/16/22 12:00 Intake & Output 03/15/22 03/16/22 03/16/22 18:59 06:59 18:59 Intake Total 1080 800 80 Output Total 735 625 290 Balance 345 175 -210 Weight 95.9 kg Intake: IV 960 800 80 Sodium Chloride 0.9% 1, 960 800 80 000 ml @ 80 mls/hr IV . [id number] [facility] Rx#:[id number] Oral 120 Output: Urine 735 625 290 Other: Voiding Method Indwelling Catheter Indwelling Catheter Indwelling Catheter - Constitutional General appearance: Present: no acute distress - Respiratory Respiratory: bilateral: diminished - Cardiovascular Rhythm: irregularly irregular Heart sounds: normal: S1, S2 - Labs CBC & Chem 7: 03/15/22 07:19 03/16/22 07:40 Labs: Abnormal Lab Results - Last 24 Hours (Table) 03/16/22 03/16/22 Range/Units 07:40 12:12 PT 21.2 H (9.0-12.0) sec INR 2.1 H (<1.2) Potassium 3.4 L (3.5-5.1) mmol/L BUN 32 H (9-20) mg/dL Calcium 7.2 L (8.4-10.2) mg/dL Total Bilirubin 15.2 H* (0.2-1.3) mg/dL AST 743 H (17-59) U/L ALT 1077 H (4-49) U/L Total Protein 5.5 L (6.3-8.2) g/dL Albumin 2.6 L (3.5-5.0) g/dL Assessment and Plan Assessment: Assessment #1 bilateral pulmonary embolism on a CTA of the chest, and known if the pulmonary embolism acute versus chronic #2 atrial fibrillation of unknown etiology at this point, differential diagnoses include paroxysmal versus persistent versus long-standing persistent #3 acute stroke presented as right sided weakness and slurred speech/expressive aphasia #4 excessive alcohol use #5 acute renal failure #6 severe cardiomyopathy of unknown etiology Plan #1 continue the current medical regimen #2 monitor the liver function tests #3 GI on the case regarding the abnormal. Open #4 obtain an INR #5 follow-up with the patient
[2022-03-16] MEDS: FAMOTIDINE 20 MG TAB PO SCH (20:33)
[2022-03-17] MEDS: LORazepam 2 MG/ML INJ IV PRN ×2 (01:22→23:13)
--- NOTE | 2022-03-17 07:49 | P.PN ---
Subjective Progress Note Date: 03/16/22 Patient was seen for a follow-up. Patient is sitting in his bed. Patient continues to be severely dysarthric, with some aphasia. Denies any headache. Denies any new focal symptoms. No nausea vomiting. Objective - Vital Signs Vital signs: Vital Signs Temp 98.4 F 03/16/22 16:00 Pulse 46 L 03/16/22 16:00 Resp 16 03/16/22 16:00 BP 114/79 03/16/22 16:00 Pulse Ox 95 03/16/22 16:00 Intake & Output 03/15/22 03/16/22 03/16/22 18:59 06:59 18:59 Intake Total 1080 800 80 Output Total 735 625 290 Balance 345 175 -210 Weight 95.9 kg Intake: IV 960 800 80 Sodium Chloride 0.9% 1, 960 800 80 000 ml @ 80 mls/hr IV . [id number] [facility] Rx#:[id number] Oral 120 Output: Urine 735 625 290 Other: Voiding Method Indwelling Catheter Indwelling Catheter Indwelling Catheter - Exam Patient is alert and awake. Patient appears obviously jaundiced. Speech is very dysarthric, some aphasia. Patient can name some objects presented like pen, glasses. He does point to the window and the door. Comprehension is largely intact. On cranial nerve examination pupils are equal, round and reacting, visual benavides are full. Patient has right facial weakness, central type. Tongue protrudes to the midline. Facial sensation is normal On muscle strength testing (right/left) deltoid 3/5, biceps 4+/5, triceps 5-/5, ironmolder 1/5, ankle dorsiflexion 3+/5, hip flexion 4/5. Patient has right pronator drift and it hits the bed. Sensory is decreased for touch in the right arm and right leg as compared to the contralateral side. Cerebellar functions could not be tested on the right. No ataxia in the left. - Labs CBC & Chem 7: 03/15/22 07:19 03/16/22 07:40 Labs: Abnormal Lab Results - Last 24 Hours (Table) 03/16/22 03/16/22 Range/Units 07:40 12:12 PT 21.2 H (9.0-12.0) sec INR 2.1 H (<1.2) Potassium 3.4 L (3.5-5.1) mmol/L BUN 32 H (9-20) mg/dL Calcium 7.2 L (8.4-10.2) mg/dL Total Bilirubin 15.2 H* (0.2-1.3) mg/dL AST 743 H (17-59) U/L ALT 1077 H (4-49) U/L Total Protein 5.5 L (6.3-8.2) g/dL Albumin 2.6 L (3.5-5.0) g/dL Assessment and Plan Assessment: * Acute ischemic stroke involving left deep parietal region, likely embolic. Patient clinically has significant dysarthria, some expressive aphasia, right hemiparesis with right hemisensory loss. * New-onset/diagnosed atrial fibrillation * Pulmonary embolism, with pulmonary infarct. * Acute kidney injury secondary to ATN secondary to hemodynamic instability vs contrast-induced. Nephrology on board. * Macrocytosis * Acute hepatic injury due to alcoholic hepatitis * Probable underlying alcoholic cirrhosis of the liver (per GI report) * Lactic acidosis * History of alcoholism. Plan: * Patient is on high-dose Eliquis 10 mg twice a day, and cardiology plan is to decrease dose to 5 mg twice a day from 03/21/2022. Cardiology on board. * Repeat CT head without contrast 03/15/2022, revealed subacute left hemispheric infarct involving the temporal lobe and left internal capsule without change in size compared to the recent exam. No intracranial hemorrhage. I reviewed CT head and agree with the findings. * 2-D echo with bubble study was performed 03/13/2022, which revealed severely reduced left ventricular systolic function, with EF of 20-25%. There is possible left ventricular apical mural thrombus. * CTA of head and neck showed no significant stenosis. * PT OT, speech therapy. * Maintain blood pressure systolic <150, but avoid hypotension or systolic blood pressure <110 (unless indictated from cardiac point). * Hemoglobin A1c 5.2, lipid panel cholesterol 61, LDL 36, HDL 9.2 and triglycerides 78. No indication for statins. Patient already has severely abnormal hepatic functions. * B12 > 2000, folate 16.10 (macrocytosis likely due to alcoholism). * Continue thiamine, multivitamins. Watch for alcohol withdrawal. * Medical management as per IM, critical care and other specialties. * Speech therapy, PT and OT. Speech therapy note reviewed. Patient's diet upgraded to dysphagia II (ground) with NTL, meds crushed, 1:1 assist. * Physical medicine and rehab consultation report noted.
--- NOTE | 2022-03-17 07:50 | P.PN ---
Subjective Progress Note Date: 03/17/22 Principal diagnosis: Severe cardiomyopathy The patient is a 56-year-old gentleman who did not see a physician in long time with a past medical history significant for excessive alcohol use was admitted to the hospital with stroke presented as a right sided weakness associated with slurred speech and aphasia. Beside that the patient was found to have bilateral PE and known if it's acute or chronic. Also he was diagnosed with cardiomyopathy with EF between 25-30% with possible LV thrombus. We consulted to see him because of atrial fibrillation of unknown etiology. The patient was seen today. He continues to have expressive aphasia and severe right sided weakness. He was to switch to oral anticoagulation yesterday. Currently he is on amiodarone only for the atrial fibrillation because his pressure was marginal and we stopped the beta ne. Currently he is on Eliquis at 10 mg by mouth twice a day. His liver function tests were elevated and that before we start him on amiodarone and he was hypotensive and we feel that the liver function test abnormalities including elevated bilirubin is elevated to possible shocky liver. Anyway gastrointestinal team is on the case at this point. From the cardiac standpoint of view, I would recommend continue the current medical regimen. Continue oral anticoagulation as far as there is no gee bleeding. Continue monitor the kidney function and continue monitor also do liver function tests including bilirubin. Objective - Vital Signs Vital signs: Vital Signs Temp 98.1 F 03/17/22 04:00 Pulse 108 H 03/17/22 04:00 Resp 22 03/17/22 04:00 BP 121/77 03/17/22 04:00 Pulse Ox 93 L 03/17/22 04:00 Intake & Output 03/16/22 03/17/22 03/17/22 18:59 06:59 18:59 Intake Total 80 Output Total 740 Balance -660 Intake: IV 80 Sodium Chloride 0.9% 1, 80 000 ml @ 80 mls/hr IV . [id number] [facility] Rx#:[id number] Output: Urine 740 Other: Voiding Method Indwelling Catheter Indwelling Catheter - Constitutional General appearance: Present: no acute distress - Respiratory Respiratory: bilateral: diminished - Cardiovascular Rhythm: irregularly irregular Heart sounds: normal: S1, S2 - Labs CBC & Chem 7: 03/15/22 07:19 03/16/22 07:40 Labs: Abnormal Lab Results - Last 24 Hours (Table) 03/16/22 03/16/22 Range/Units 07:40 12:12 PT 21.2 H (9.0-12.0) sec INR 2.1 H (<1.2) Potassium 3.4 L (3.5-5.1) mmol/L BUN 32 H (9-20) mg/dL Calcium 7.2 L (8.4-10.2) mg/dL Total Bilirubin 15.2 H* (0.2-1.3) mg/dL AST 743 H (17-59) U/L ALT 1077 H (4-49) U/L Total Protein 5.5 L (6.3-8.2) g/dL Albumin 2.6 L (3.5-5.0) g/dL Assessment and Plan Assessment: Assessment #1 bilateral pulmonary embolism on a CTA of the chest, and known if the pulmonary embolism acute versus chronic #2 atrial fibrillation of unknown etiology at this point, differential diagnoses include paroxysmal versus persistent versus long-standing persistent #3 acute stroke presented as right sided weakness and slurred speech/expressive aphasia #4 excessive alcohol use #5 acute renal failure #6 severe cardiomyopathy of unknown etiology #7 abnormal liver function test #8 multiple comorbid conditions Plan #1 continue the current medical regimen #2 monitor for any evidence of bleeding #3 continue monitor the kidney function and liver function test #4 follow-up with the patient
[2022-03-17] MEDS: AMIODARONE 200 MG TAB PO SCH ×2 (08:22→19:44)
[2022-03-17] MEDS: APIXABAN 5 MG TAB PO SCH ×2 (08:22→19:44)
[2022-03-17] MEDS: FAMOTIDINE 20 MG TAB PO SCH ×2 (08:23→19:44)
[2022-03-17] MEDS: THIAMINE 100 MG TAB PO SCH ×2 (08:23→19:44)
[2022-03-17 09:31] LABS: Calcium 8.2 mg/dL (8.4-10.2); Magnesium 2.5 mg/dL (1.6-2.3)
[2022-03-17 09:51] LABS: Potassium 4.3 mmol/L (3.5-5.1)
--- NOTE | 2022-03-17 10:05 | P.PN ---
Subjective Progress Note Date: 03/17/22 Principal diagnosis: This is a 56-year-old male with history of alcoholism, followed up with acute kidney injury secondary to combination of contrast-induced acute kidney injury as well as hemodynamic instability. Creatinine improved from 3.28-1.25 as of yesterday. He also had metabolic acidosis with lactic acidosis as well as hyperkalemia. This morning he is confused and somewhat agitated. His toes are showing signs of gangrene. Although pulses are very well felt. He has history of A. fib with pulmonary embolism currently on anticoagulation. Objective - Vital Signs Vital signs: Vital Signs Temp 97.1 F L 03/17/22 08:00 Pulse 114 H 03/17/22 08:00 Resp 21 03/17/22 08:00 BP 127/73 03/17/22 08:00 Pulse Ox 95 03/17/22 08:00 Intake & Output 03/16/22 03/17/22 03/17/22 18:59 06:59 18:59 Intake Total 80 Output Total 740 550 Balance -660 -550 Intake: IV 80 Sodium Chloride 0.9% 1, 80 000 ml @ 80 mls/hr IV . [id number] [facility] Rx#:[id number] Output: Urine 740 550 Other: Voiding Method Indwelling Catheter Indwelling Catheter On examination his obtunded somewhat restless. HEENT exam shows sclerae is jaundiced. Lungs are clear to auscultation but less than optimal. Air entry Heart sounds atrial fibrillation Abdomen soft nontender nondistended Extremity exam reveals multiple toetips shows skin's gangrenous. Dorsalis pedis was well felt. Warm to touch. Neurologically as above. - Labs CBC & Chem 7: 03/15/22 07:19 03/17/22 08:25 Labs: Abnormal Lab Results - Last 24 Hours (Table) 03/16/22 03/17/22 Range/Units 12:12 08:25 PT 21.2 H (9.0-12.0) sec INR 2.1 H (<1.2) BUN 25 H (9-20) mg/dL Calcium 8.2 L (8.4-10.2) mg/dL Magnesium 2.5 H (1.6-2.3) mg/dL Assessment and Plan Assessment: Impression 1. Acute kidney injury secondary to combination of hemodynamic instability and contrast. Creatinine improved from a peak of 3.28-1.07 this morning. 2. Hyperkalemia and metabolic acidosis resolved potassium 4.3 bicarb is 29 and anion gap is 10. 3. Encephalopathy with History of alcohol use. Possibly going through withdrawal. Ammonia level II days ago was normal bilirubin is 15.2 AST and AST are elevated 4. Gangrenous toe tips. Possible from atrial fibrillation and heart. Rule out hypercoagulable state. 5. History of PE Recommendation 1. Stable nephrological 2. Maintain hydration, lactated Ringer's at 75 mL an hour
[2022-03-17] MEDS: LACTATED RINGERS 1,000 ML IV SCH (10:47)
--- NOTE | 2022-03-17 18:07 | P.PN ---
Subjective Progress Note Date: 03/16/22 56-year-old male with heavy all call abuse history came in with complaints of right-sided facial droop and right arm weakness along with slurred speech. Patient had these symptoms going on and off for about 3 days. Patient is also found to be in atrial fibrillation. Patient denied any chest pain or shortness of breath but patient is is for incidentally found to have bilateral pulmonary emboli patient denied any leg pain. Patient has highly elevated liver enzymes related to heavy alcohol use. AST and ALT consistent with the alcoholic liver disease patient has elevated MCV as well. Patient was on Cardizem drip which is presently discontinued and cardiology evaluated the patient echo is pending. Patient the has significant metabolic acidosis, both anion gap and non-anion gap metabolic acidosis. I'll obtain lactic acid level. Patient probably has cirrhosis as well. She has a compensated metabolic alkalosis. Objective - Vital Signs Vital signs: Vital Signs Temp 97.9 F 03/16/22 08:00 Pulse 79 03/16/22 08:00 Resp 16 03/16/22 08:00 BP 97/71 03/16/22 08:00 Pulse Ox 92 L 03/16/22 08:00 Intake & Output 03/15/22 03/16/22 03/16/22 18:59 06:59 18:59 Intake Total 1080 800 80 Output Total 735 625 290 Balance 345 175 -210 Weight 95.9 kg Intake: IV 960 800 80 Sodium Chloride 0.9% 1, 960 800 80 000 ml @ 80 mls/hr IV . [id number] [facility] Rx#:[id number] Oral 120 Output: Urine 735 625 290 Other: Voiding Method Indwelling Catheter Indwelling Catheter Indwelling Catheter - Exam - GENERAL: The patient is alert and awake, he follows commands. Patient is aphasic. Not look in distress HEENT: Pupils are round and equally reacting to light. EOMI. No scleral icterus. No conjunctival pallor. Normocephalic, atraumatic. No pharyngeal erythema. No thyromegaly. CARDIOVASCULAR: S1 and S2 present. No murmurs, rubs, or gallops. PULMONARY: Chest is clear to auscultation, no wheezing or crackles. ABDOMEN: Soft, nontender, nondistended, normoactive bowel sounds. No palpable organomegaly. MUSCULOSKELETAL: No joint swelling or deformity. EXTREMITIES: No cyanosis, clubbing, or pedal edema. -NEUROLOGICAL: Patient is aphasic. He has tried hemiplegia, barely moving his right side. SKIN: No rashes. no petechiae. - Labs CBC & Chem 7: 03/15/22 07:19 03/17/22 08:25 Labs: Abnormal Lab Results - Last 24 Hours (Table) 03/16/22 Range/Units 07:40 Potassium 3.4 L (3.5-5.1) mmol/L BUN 32 H (9-20) mg/dL Calcium 7.2 L (8.4-10.2) mg/dL Total Bilirubin 15.2 H* (0.2-1.3) mg/dL AST 743 H (17-59) U/L ALT 1077 H (4-49) U/L Total Protein 5.5 L (6.3-8.2) g/dL Albumin 2.6 L (3.5-5.0) g/dL Assessment and Plan Assessment: Acute left parietal/temporal stroke with right hemiplegia, most likely embolic from atrial fibrillation and LV thrombosis New-onset atrial fibrillation Bilateral scattered pulmonary emboli's with pulmonary infarction Acute kidney injury Alcoholic abuse at risk of withdrawal Cardiomyopathy with ejection fraction 20-25% Left ventricular mural thrombus Alcoholic hepatitis Plan: This is a pleasant 56 years old male who presents with multiple problems including CVA, A. fib, PE, DEVAN, CMP Switch heparin drip and Eliquis Continue with oral amiodarone per wool washing machine operator Continue with CIWA protocol amphetamine, patient currently not on active withdrawal symptoms. Continue with normal saline Several consultants. Following the patient including pulmonary/critical care, protective signal installer, neurologist, wool washing machine operator, surgeon's both vascular and general. GI team consult Labs and medication were reviewed.. Continue same treatment. Continue with symptomatic treatment. Resume home medication. Monitor lytes and vitals. DVT and GI prophylaxis. Further recommendationsas per clinical course of the patient DVT prophylaxis: heparin GI Prophylaxis: Pepcid
--- NOTE | 2022-03-17 18:11 | P.PN ---
Subjective Progress Note Date: 03/17/22 Principal diagnosis: Acute left parietal/temporal stroke with right hemiplegia New-onset atrial fibrillation Bilateral scattered pulmonary emboli's with pulmonary infarction Acute kidney injury Alcoholic abuse at risk of withdrawal 56-year-old male with heavy all call abuse history came in with complaints of right-sided facial droop and right arm weakness along with slurred speech. Patient had these symptoms going on and off for about 3 days. Patient is also found to be in atrial fibrillation. Patient denied any chest pain or shortness of breath but patient is is for incidentally found to have bilateral pulmonary emboli patient denied any leg pain. Patient has highly elevated liver enzymes related to heavy alcohol use. AST and ALT consistent with the alcoholic liver disease patient has elevated MCV as well. Patient was on Cardizem drip which is presently discontinued and cardiology evaluated the patient echo is pending. Patient the has significant metabolic acidosis, both anion gap and non-anion gap metabolic acidosis. I'll obtain lactic acid level. Patient probably has cirrhosis as well. She has a compensated metabolic alkalosis. 03/17/2022 Patient is seen and evaluated in room at bedside; discussed with nursing staff; no specific complaints Vital signs are reviewed and stable with temperature of 97.1, pulse 108, respiration 21 and blood pressure of 127/73. SATURATION of 90-95% on 3 L Laboratory review shows sodium 144, potassium 4.3, BUN/creatinine of 25/1.07, total bilirubin from yesterday at 15.2, AST of 743, ALT of 1077 Plan is to continue with current therapy; patient to be transferred to [facility] [place] once insurance authorization is available Objective - Vital Signs Vital signs: Vital Signs Temp 97.1 F L 03/17/22 08:00 Pulse 114 H 03/17/22 08:00 Resp 21 03/17/22 08:00 BP 127/73 03/17/22 08:00 Pulse Ox 95 03/17/22 08:00 Intake & Output 03/16/22 03/17/22 03/17/22 18:59 06:59 18:59 Intake Total 80 Output Total 740 550 Balance -660 -550 Intake: IV 80 Sodium Chloride 0.9% 1, 80 000 ml @ 80 mls/hr IV . [id number] [facility] Rx#:[id number] Output: Urine 740 550 Other: Voiding Method Indwelling Catheter Indwelling Catheter Indwelling Catheter - Exam - GENERAL: The patient is alert and awake, he follows commands. Patient is aphasic. Not look in distress HEENT: Pupils are round and equally reacting to light. EOMI. No scleral icterus. No conjunctival pallor. Normocephalic, atraumatic. No pharyngeal erythema. No thyromegaly. CARDIOVASCULAR: S1 and S2 present. No murmurs, rubs, or gallops. PULMONARY: Chest is clear to auscultation, no wheezing or crackles. ABDOMEN: Soft, nontender, nondistended, normoactive bowel sounds. No palpable organomegaly. MUSCULOSKELETAL: No joint swelling or deformity. EXTREMITIES: No cyanosis, clubbing, or pedal edema. -NEUROLOGICAL: Patient is aphasic. He has tried hemiplegia, barely moving his right side. SKIN: No rashes. no petechiae. - Labs CBC & Chem 7: 03/15/22 07:19 03/17/22 08:25 Labs: Abnormal Lab Results - Last 24 Hours (Table) 03/17/22 Range/Units 08:25 BUN 25 H (9-20) mg/dL Calcium 8.2 L (8.4-10.2) mg/dL Magnesium 2.5 H (1.6-2.3) mg/dL Assessment and Plan Assessment: Acute left parietal/temporal stroke with right hemiplegia, most likely embolic from atrial fibrillation and LV thrombosis New-onset atrial fibrillation Bilateral scattered pulmonary emboli's with pulmonary infarction Acute kidney injury Alcoholic abuse at risk of withdrawal Cardiomyopathy with ejection fraction 20-25% Left ventricular mural thrombus Alcoholic hepatitis Plan: This is a pleasant 56 years old male who presents with multiple problems including CVA, A. fib, PE, DEVAN, CMP Switch heparin drip and Eliquis Continue with oral amiodarone per costumed character entertainer Continue with CIWA protocol amphetamine, patient currently not on active withdrawal symptoms. Continue with normal saline Several consultants. Following the patient including pulmonary/critical care, waterproofing mixer, neurologist, costumed character entertainer, surgeon's both vascular and general. GI team consult Labs and medication were reviewed.. Continue same treatment. Continue with symptomatic treatment. Resume home medication. Monitor lytes and vitals. DVT and GI prophylaxis. Further recommendationsas per clinical course of the patient DVT prophylaxis: heparin GI Prophylaxis: Pepcid
[2022-03-18] MEDS: LORazepam 2 MG/ML INJ IV PRN ×4 (02:17→20:21)
[2022-03-18 06:46] LABS: African American GFR (CKD) >90 (>60 ml/min/1.73 sqM); Anion Gap 9 mmol/L; Blood Urea Nitrogen 19 mg/dL (9-20); Calcium 7.8 mg/dL (8.4-10.2); Carbon Dioxide 25 mmol/L (22-30); Chloride 110 mmol/L (98-107); Glucose 90 mg/dL (74-99); Non-African American GFR(CKD) >90 (>60 ml/min/1.73 sqM); Potassium 3.7 mmol/L (3.5-5.1); Sodium 144 mmol/L (137-145)
--- NOTE | 2022-03-18 08:22 | P.PN ---
Subjective Progress Note Date: 03/18/22 Principal diagnosis: Severe cardiomyopathy The patient is a 56-year-old gentleman who did not see a physician in long time with a past medical history significant for excessive alcohol use was admitted to the hospital with stroke presented as a right sided weakness associated with slurred speech and aphasia. Beside that the patient was found to have bilateral PE and known if it's acute or chronic. An echocardiogram was performed for further investigation and that revealed severe cardiomyopathy was EF between 25- 30% with possible LV thrombus. When the patient presented to the hospital he was in atrial fibrillation. The patient was seen this morning. He continues to have severe expressive aphasia and right-sided weakness as well as agitation. Hemodynamically he is a somewhat is stable. He is on oral anticoagulation. The heart rate has been slightly elevated on the current dose of amiodarone by mouth and I'm going to start the patient on a small dose of beta ne was metoprolol tartrate 12.5 mg by mouth twice a day. Meanwhile continue the current medical regimen and continue monitor the kidney function and electrolytes as well as liver function test. His liver function tests were elevated because of low blood pressure which has resolved and they have been trending down. Overall the prognosis is poor. Objective - Vital Signs Vital signs: Vital Signs Temp 98 F 03/18/22 04:00 Pulse 113 H 03/18/22 04:00 Resp 19 03/18/22 04:00 BP 124/66 03/18/22 04:00 Pulse Ox 100 03/18/22 04:00 Intake & Output 03/17/22 03/18/22 03/18/22 18:59 06:59 18:59 Output Total 650 Balance -650 Output: Urine 650 Other: Voiding Method Indwelling Catheter Indwelling Catheter - Constitutional General appearance: Present: no acute distress - Respiratory Respiratory: bilateral: diminished - Cardiovascular Rhythm: irregularly irregular Heart sounds: normal: S1, S2 - Labs CBC & Chem 7: 03/15/22 07:19 03/18/22 06:23 Labs: Abnormal Lab Results - Last 24 Hours (Table) 03/17/22 03/18/22 Range/Units 08:25 06:23 Chloride 110 H (98-107) mmol/L BUN 25 H (9-20) mg/dL Calcium 8.2 L 7.8 L (8.4-10.2) mg/dL Magnesium 2.5 H (1.6-2.3) mg/dL Assessment and Plan Assessment: Assessment #1 bilateral pulmonary embolism on a CTA of the chest, and known if the pu lmonary embolism acute versus chronic #2 atrial fibrillation with uncontrolled heart rate. The atrial fibrillation is persistent versus long-standing persistent versus permanent #3 acute stroke presented as right sided weakness and slurred speech/expressive aphasia #4 excessive alcohol use #5 acute renal failure #6 severe cardiomyopathy of unknown etiology and LV thrombus #7 abnormal liver function test #8 multiple comorbid conditions Plan #1 continue the current medical regimen #2 monitor for any evidence of bleeding #3 continue monitor the kidney function and liver function test #4 add small dose of metoprolol to the current medical regimen
[2022-03-18 08:56] LABS: Total Bilirubin 17.2 mg/dL (0.2-1.3)
[2022-03-18] MEDS ORDERED: DILTIAZEM ORAL 30 MG TAB PO SCH (09:00)
--- NOTE | 2022-03-18 09:28 | P.PN ---
Subjective Progress Note Date: 03/18/22 Principal diagnosis: This is a 56-year-old male with history of alcoholism, followed up with acute kidney injury secondary to combination of contrast-induced acute kidney injury as well as hemodynamic instability. Creatinine improved from 3.28-1.25 further improved to 0.8 this morning. His urine is extremely reddish. Previous urinalysis has shown 29 RBCs dated 03/15/2022 trace protein. He has atrial fibrillation and continues to have significant evidence of embolization with a computed tomography scan of the brain showing subacute left hemispheric infarct involving the temporal lobe and internal capsule and a computed tomography scan of the abdomen showing possible pulmonary embolism, and a echocardiogram showing LV apical thrombus possibly ejection fraction is estim ated at 20-25% He also had metabolic acidosis with lactic acidosis as well as hyperkalemia. This morning he is confused and somewhat agitated. His toes are showing signs of gangrene. Although pulses are very well felt. Objective - Vital Signs Vital signs: Vital Signs Temp 98 F 03/18/22 04:00 Pulse 113 H 03/18/22 04:00 Resp 19 03/18/22 04:00 BP 124/66 03/18/22 04:00 Pulse Ox 100 03/18/22 04:00 Intake & Output 03/17/22 03/18/22 03/18/22 18:59 06:59 18:59 Intake Total 118 Output Total 650 Balance -650 118 Intake: Oral 118 Output: Urine 650 Other: Voiding Method Indwelling Catheter Indwelling Catheter On examination his obtunded confused jaundiced HEENT exam no facial asymmetry. Lungs are significant for bilateral coarse crackles but good air entry bilaterally Heart sounds unremarkable for any murmur rub gallop, in atrial fibrillation Abdomen soft nontender Extremity exam was trace edema with evidence of skin gangrene of multiple toes and some bruising. Pulses were well felt dorsalis pedis yesterday. Neurologically confused and somewhat restless - Labs CBC & Chem 7: 03/15/22 07:19 03/18/22 06:23 Labs: Abnormal Lab Results - Last 24 Hours (Table) 03/17/22 03/18/22 03/18/22 Range/Units 08:25 06:23 06:23 Chloride 110 H (98-107) mmol/L BUN 25 H (9-20) mg/dL Calcium 8.2 L 7.8 L (8.4-10.2) mg/dL Magnesium 2.5 H (1.6-2.3) mg/dL Total Bilirubin 17.2 H* (0.2-1.3) mg/dL AST 279 H (17-59) U/L ALT 627 H (4-49) U/L Assessment and Plan Assessment: Impression 1. Acute kidney injury secondary to combination of hemodynamic instability and contrast. Creatinine improved from a peak of 3.28-0.8 this morning 2. Hyperkalemia and metabolic acidosis resolved 3. Encephalopathy with History of alcohol use. Possibly going through withdrawal. Ammonia level II days ago was normal bilirubin is 15.2 AST and AST are elevated. He also had infarction based on computed tomography scan of the brain 4. Gangrenous toe tips. Possible from atrial fibrillation and left ventricular clot 5. History of PE Recommendation 1. Stable nephrological 2. Maintain hydration, lactated Ringer's at 75 mL an hour
[2022-03-18] MEDS: METOPROLOL TARTRATE 12.5 MG TAB PO SCH ×2 (09:47→20:22)
[2022-03-18] MEDS: FAMOTIDINE 20 MG TAB PO SCH ×2 (09:47→20:22)
[2022-03-18] MEDS: APIXABAN 5 MG TAB PO SCH ×2 (09:47→20:21)
[2022-03-18] MEDS: AMIODARONE 200 MG TAB PO SCH ×2 (09:47→20:22)
[2022-03-18] MEDS: THIAMINE 100 MG TAB PO SCH ×2 (09:47→20:22)
[2022-03-18] MEDS: LACTATED RINGERS 1,000 ML IV SCH ×2 (09:47→15:39)
--- NOTE | 2022-03-18 12:10 | CT ---
EXAMINATION TYPE: CT brain wo con DATE OF EXAM: 03/18/2022 COMPARISON: 03/15/2022 HISTORY: altered mental status CT DLP: 1157.4 mGycm Automated exposure control for dose reduction was used. Technique: Multiple axial images obtained from skull base to vertex without use of IV contrast hii al. FINDINGS: There is an ill-defined area of decreased density involving the cortex and subcortical white matter a nd insula the left temporal lobe. This consistent with a subacute infarct. It appears slightly larger and less dense than on the prior study. There is no acute intra or extra-axial hemorrhage and there is no mass effect or shift of midline structures. Posterior fossa is grossly normal. The intraorbital contents appear normal and symmetric. There is mild chronic inflammation of the left axilla sinus. IMPRESSION: Subacute infarct in the left temporal lobe involving the insular cortex. The infarct is evolving and appears slightly larger and less dense. There is no acute hemorrhage or mass effect.
[2022-03-18 12:35] LABS: Basophils # (A) 0.1 k/uL (0-0.2); Basophils % (A) 1 %; Eosinophils # (A) 0.1 k/uL (0-0.7); Eosinophils % (A) 1 %; HCT 54.7 % (39.0-53.0); HGB 16.8 gm/dL (13.0-17.5); Hypochromasia Moderate; Lymphocytes # (A) 0.5 k/uL (1.0-4.8); Lymphocytes % (A) 7 %; MCH 31.5 pg (25.0-35.0); MCHC 30.7 g/dL (31.0-37.0); MCV 102.6 fL (80.0-100.0); Macrocytosis Slight; Mean Platelet Volume 11.7; Monocytes # (A) 0.6 k/uL (0-1.0); Monocytes % (A) 8 %; Neutrophils % (A) 82 %; Platelet Count 133 k/uL (150-450); RBC 5.33 m/uL (4.30-5.90); RDW 15.1 % (11.5-15.5); WBC 7.3 k/uL (3.8-10.6)
--- NOTE | 2022-03-18 16:38 | P.PN ---
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 Patient had these symptoms going on and off for about 3 days. Patient is also found to be in atrial fibrillation. Patient denied any chest pain or shortness of breath but patient is is for incidentally found to have bilateral pulmonary emboli patient denied any leg pain. Patient has highly elevated liver enzymes related to heavy alcohol use. AST and ALT consistent with the alcoholic liver disease patient has elevated MCV as well. Patient was on Cardizem drip which is presently discontinued and cardiology evaluated the patient echo is pending. Patient the has significant metabolic acidosis, both anion gap and non-anion gap metabolic acidosis. I'll obtain lactic acid level. Patient probably has cirrhosis as well. She has a compensated metabolic alkalosis. 03/17/2022 Patient is seen and evaluated in room at bedside; discussed with nursing staff; no specific complaints Vital signs are reviewed and stable with temperature of 97.1, pulse 108, respiration 21 and blood pressure of 127/73. SATURATION of 90-95% on 3 L Laboratory review shows sodium 144, potassium 4.3, BUN/creatinine of 25/1.07, total bilirubin from yesterday at 15.2, AST of 743, ALT of 1077 Plan is to continue with current therapy; patient to be transferred to [facility] for inpatient rehab once insurance authorization is available 03/18/2022 Patient is seen and evaluated in room at bedside; admitted with acute CVA with severe expressive aphasia and right sided weakness Vital signs are reviewed which we persistently elevated heart rate; patient has been placed on amiodarone for persistent atrial fibrillation; cardiology on board and recommending to start a small dose of metoprolol tartrate at 12.5 mg twice a day Labs reveal creatinine improving from 3.2 with down to 0.8 this morning; hypernatremia has resolved; nephrology is on board and recommending to continue with lactated Ringer at 75 mL an hour Patient has been evaluated by physical rehab and is recommended inpatient rehab; await insurance authorization Objective - Vital Signs Vital signs: Vital Signs Temp 97.4 F L 03/18/22 09:36 Pulse 120 H 03/18/22 09:36 Resp 20 03/18/22 09:36 BP 122/90 03/18/22 09:36 Pulse Ox 99 03/18/22 09:36 Intake & Output 03/17/22 03/18/22 03/18/22 18:59 06:59 18:59 Intake Total 193 Output Total 650 150 Balance -650 43 Intake: IV 75 Lactated Ringers 1,000 ml 75 @ 75 mls/hr IV .[id number] [facility] Rx#:[id number] Oral 118 Output: Urine 650 150 Other: Voiding Method Indwelling Catheter Indwelling Catheter Indwelling Catheter - Exam - GENERAL: The patient is alert and awake, he follows commands. Patient is aphasic. Not look in distress HEENT: Pupils are round and equally reacting to light. EOMI. No scleral icterus. No conjunctival pallor. Normocephalic, atraumatic. No pharyngeal erythema. No thyromegaly. CARDIOVASCULAR: S1 and S2 present. No murmurs, rubs, or gallops. PULMONARY: Chest is clear to auscultation, no wheezing or crackles. ABDOMEN: Soft, nontender, nondistended, normoactive bowel sounds. No palpable organomegaly. MUSCULOSKELETAL: No joint swelling or deformity. EXTREMITIES: No cyanosis, clubbing, or pedal edema. -NEUROLOGICAL: Patient is aphasic. He has tried hemiplegia, barely moving his right side. SKIN: No rashes. no petechiae. - Labs CBC & Chem 7: 03/18/22 06:23 03/18/22 06:23 Labs: Abnormal Lab Results - Last 24 Hours (Table) 03/18/22 03/18/22 Range/Units 06:23 06:23 Chloride 110 H (98-107) mmol/L Calcium 7.8 L (8.4-10.2) mg/dL Total Bilirubin 17.2 H* (0.2-1.3) mg/dL AST 279 H (17-59) U/L ALT 627 H (4-49) U/L Assessment and Plan Assessment: Acute left parietal/temporal stroke with right hemiplegia, most likely embolic from atrial fibrillation and LV thrombosis New-onset atrial fibrillation Bilateral scattered pulmonary emboli's with pulmonary infarction Acute kidney injury Alcoholic abuse at risk of withdrawal Cardiomyopathy with ejection fraction 20-25% Left ventricular mural thrombus Alcoholic hepatitis Plan: This is a pleasant 56 years old male who presents with multiple problems in cluding CVA, A. fib, PE, DEVAN, CMP Switch heparin drip and Eliquis Continue with oral amiodarone per central communications specialist Continue with CIWA protocol amphetamine, patient currently not on active withdrawal symptoms. Continue with normal saline Several consultants. Following the patient including pulmonary/critical care, registered occupational therapist, neurologist, central communications specialist, surgeon's both vascular and general. GI team consult Labs and medication were reviewed.. Continue same treatment. Continue with symptomatic treatment. Resume home medication. Monitor lytes and vitals. DVT and GI prophylaxis. Further recommendationsas per clinical course of the patient DVT prophylaxis: heparin GI Prophylaxis: Pepcid
--- NOTE | 2022-03-18 19:35 | P.PN ---
Subjective Progress Note Date: 03/18/22 Patient was seen for a follow-up. Patient is sitting in his bed. Patient continues to be severely dysarthric, with severe expressive aphasia, he appears to be getting slightly worse. Right side appears slightly worse. Objective - Vital Signs Vital signs: Vital Signs Temp 97.4 F L 03/18/22 09:36 Pulse 120 H 03/18/22 09:36 Resp 20 03/18/22 09:36 BP 122/90 03/18/22 09:36 Pulse Ox 99 03/18/22 09:36 Intake & Output 03/17/22 03/18/22 03/18/22 18:59 06:59 18:59 Intake Total 193 Output Total 650 150 Balance -650 43 Intake: IV 75 Lactated Ringers 1,000 ml 75 @ 75 mls/hr IV .[id number] [facility] Rx#:[id number] Oral 118 Output: Urine 650 150 Other: Voiding Method Indwelling Catheter Indwelling Catheter Indwelling Catheter - Exam Patient is alert and awake. Patient appears obviously jaundiced. Speech is very dysarthric, now with significant expressive aphasia. Patient could not name simple objects like pen, glasses. Patient just mumbling incomprehensible speech. Comprehension is largely intact. On cranial nerve examination pupils are equal, round and reacting, visual benavides are full. Patient has right facial weakness, central type. Tongue protrudes to the midline. Facial sensation is normal On muscle strength testing right side is completely flaccid. Sensory is decreased for touch in the right arm and right leg as compared to the contralateral side. Cerebellar functions could not be tested on the right. No ataxia in the left. Right side appears slightly swollen because of lack of mobility. Patient has Lewis's catheter, draining brownish color urine. - Labs CBC & Chem 7: 03/18/22 06:23 03/18/22 06:23 Labs: Abnormal Lab Results - Last 24 Hours (Table) 03/18/22 03/18/22 Range/Units 06:23 06:23 Chloride 110 H (98-107) mmol/L Calcium 7.8 L (8.4-10.2) mg/dL Total Bilirubin 17.2 H* (0.2-1.3) mg/dL AST 279 H (17-59) U/L ALT 627 H (4-49) U/L Assessment and Plan Assessment: * Acute ischemic stroke involving left deep parietal region, likely embolic. Patient clinically has significant dysarthria, expressive aphasia, right hemip aresis with right hemisensory loss. Patient appears to be clinically worse today. Rule out hemorrhage, or new ischemic areas. * New-onset/diagnosed atrial fibrillation * Pulmonary embolism, with pulmonary infarct. * Acute kidney injury secondary to ATN secondary to hemodynamic instability vs contrast-induced. Nephrology on board. * Macrocytosis * Acute hepatic injury due to alcoholic hepatitis * Probable underlying alcoholic cirrhosis of the liver (per GI report) * Lactic acidosis * History of alcoholism. Plan: * Patient is on high-dose Eliquis 10 mg twice a day, and cardiology plan is to decrease dose to 5 mg twice a day from 03/21/2022. Cardiology on board. * Repeat CT head without contrast 03/18/2022, revealed subacute infarct in the left temporal lobe involving the insular cortex. The infarct is evolving and appears slightly larger and less dense. There is no acute hemorrhage or mass effect. I personally reviewed CT head and agree with the findings. * 2-D echo with bubble study was performed 03/13/2022, which revealed severely reduced left ventricular systolic function, with EF of 20-25%. There is possible left ventricular apical mural thrombus. * CTA of head and neck showed no significant stenosis. * PT OT, speech therapy. * Maintain blood pressure systolic <150, but avoid hypotension or systolic blood pressure <110 (unless indictated from cardiac point). * Hemoglobin A1c 5.2, lipid panel cholesterol 61, LDL 36, HDL 9.2 and triglycerides 78. No indication for statins. Patient already has severely abnormal hepatic functions. * B12 > 2000, folate 16.10 (macrocytosis likely due to alcoholism). * Continue thiamine, multivitamins. Watch for alcohol withdrawal. * Medical management as per IM, critical care and other specialties. * Speech therapy, PT and OT. Speech therapy note reviewed. Patient's diet upgraded to dysphagia II (ground) with NTL, meds crushed, 1:1 assist. * Physical medicine and rehab consultation report noted. * Dr. Isaiah Rutherford will resume neurology service in the morning.
[2022-03-19] MEDS: LORazepam 2 MG/ML INJ IV PRN ×2 (00:09→03:00)
[2022-03-19] MEDS: LACTATED RINGERS 1,000 ML IV SCH (02:45)
[2022-03-19 06:57] LABS: Basophils # (A) 0.1 k/uL (0-0.2); Basophils % (A) 1 %; Eosinophils # (A) 0.1 k/uL (0-0.7); Eosinophils % (A) 1 %; HGB 16.8 gm/dL (13.0-17.5); Hypochromasia Marked; Lymphocytes # (A) 1.1 k/uL (1.0-4.8); Lymphocytes % (A) 12 %; MCH 31.7 pg (25.0-35.0); MCV 105.4 fL (80.0-100.0); Macrocytosis Moderate; Monocytes # (A) 0.5 k/uL (0-1.0); Monocytes % (A) 5 %; Neutrophils # (A) 6.8 k/uL (1.3-7.7); Neutrophils % (A) 79 %; Platelet Count 117 k/uL (150-450); WBC 8.6 k/uL (3.8-10.6)
[2022-03-19 07:13] LABS: African American GFR (CKD) >90 (>60 ml/min/1.73 sqM); Anion Gap 10 mmol/L; Blood Urea Nitrogen 20 mg/dL (9-20); Calcium 7.9 mg/dL (8.4-10.2); Carbon Dioxide 23 mmol/L (22-30); Chloride 113 mmol/L (98-107); Glucose 75 mg/dL (74-99); Non-African American GFR(CKD) >90 (>60 ml/min/1.73 sqM); Potassium 4.3 mmol/L (3.5-5.1); Sodium 146 mmol/L (137-145)
[2022-03-19 07:16] LABS: HCT 55.9 % (39.0-53.0)
--- NOTE | 2022-03-19 09:49 | XR ---
EXAMINATION TYPE: XR chest 1V DATE OF EXAM: 03/19/2022 CLINICAL HISTORY: Difficulty breathing progress study. TECHNIQUE: Single AP portable upright view of the chest is obtained. COMPARISON: Chest x-ray from 4 days earlier and older studies. FINDINGS: Persistent low lung volumes with right basilar opacity greatest laterally and new patchy l eft basilar opacity. Stable cardiomegaly. Osseous structures are intact. IMPRESSION: Persistent lateral right basilar acute infiltrate and/or atelectasis and likely small to tiny right pleural effusion. This is stable. New patchy left basilar acute infiltrate and/or atelect asis.
--- NOTE | 2022-03-19 10:42 | P.PN ---
Subjective Patient is seen in follow-up for acute kidney injury. Renal function back to baseline. Sodium level 146 today. Patient is only moaning. Not responding to verbal commands. Hemodynamically stable. Has a Lewis catheter. Nonoliguric. Vital signs are stable. General: Resting in bed. Moaning. HEENT: Head exam is unremarkable. On nasal cannula. LUNGS: Breath sounds decreased. HEART: Rate and Rhythm are regular. ABDOMEN: Soft, no distention. EXTREMITITES: No edema. Objective - Vital Signs Vital signs: Vital Signs Temp 98.0 F 03/19/22 07:51 Pulse 85 03/19/22 07:51 Resp 22 03/19/22 07:51 BP 123/64 03/19/22 07:51 Pulse Ox 92 L 03/19/22 07:51 Intake & Output 03/18/22 03/19/22 03/19/22 18:59 06:59 18:59 Intake Total 993 435 Output Total 350 600 Balance 643 -165 Intake: IV 675 375 Lactated Ringers 1,000 ml 675 375 @ 75 mls/hr IV .[id number] [facility] Rx#:[id number] Oral 318 60 Output: Urine 350 600 Other: Voiding Method Indwelling Catheter Indwelling Catheter Indwelling Catheter - Labs CBC & Chem 7: 03/19/22 06:06 03/19/22 06:06 Labs: Abnormal Lab Results - Last 24 Hours (Table) 03/18/22 03/19/22 03/19/22 Range/Units 06:23 06:06 06:06 Hct 54.7 H 55.9 H (39.0-53.0) % MCV 102.6 H 105.4 H (80.0-100.0) fL MCHC 30.7 L 30.0 L (31.0-37.0) g/dL Plt Count 133 L 117 L (150-450) k/uL Lymphocytes # 0.5 L (1.0-4.8) k/uL Sodium 146 H (137-145) mmol/L Chloride 113 H (98-107) mmol/L Calcium 7.9 L (8.4-10.2) mg/dL Assessment and Plan Plan: Assessment: 1. Acute kidney injury secondary to ATN secondary to hemodynamic instability. Also component of contrast-induced acute kidney injury. Patient received IV contrast on 03/12/2022. Creatinine was 1.5 on admission and peaked at 3.28 - 0.89 today. Unknown baseline renal function. Now nonoliguric. No hydronephrosis noted on imaging. UPC 0.11. 2. A. fib with RVR status post Cardizem and amiodarone drip. Now on oral amiodarone. 3. PE and pulmonary infarct on anticoagulation. 4. Metabolic acidosis secondary to acute kidney injury and lactic acidosis. Improved. 5. Hyperkalemia secondary to acute kidney injury and metabolic acidosis. Hemolyzed sample. Potassium low today. 6. Alcohol abuse. 7. Acute CVA. 8. Cardiomyopathy with ejection fraction of 20-25%. Questionable left ventricular thrombus present. 9. ?Ischemic bowel. Surgery following. 10. Hypernatremia from lack of oral water intake. Plan: Stop LR. Start half normal saline at 75 mL an hour. Avoid nephrotoxins. Continue to monitor renal function and urine output. Monitor volume status closely due to depressed EF.
[2022-03-19] MEDS: SODIUM CHLORIDE 0.45% 1,000 ML IV SCH (10:48)
[2022-03-19 12:11] LABS: Color,Urine Brown; Mucus,Urine Many /hpf; RBC,Urine >182 /hpf (0-5); WBC,Urine >182 /hpf (0-5)
[2022-03-19 12:12] LABS: Appearance,Urine Bloody (Clear)
--- NOTE | 2022-03-19 12:17 | P.PN ---
Subjective This is a 56-year-old gentleman with a known history of excessive alcohol use was brought to the emergency department for change in mental status. He does not follow with a chicken cleaner outpatient. Apparently the patient was experiencing intermittent episodes of right sided weakness, aphasia and slurred speech subsequently the patient fell on the ground and he was brought to the emergency department on 03/13/2022. The patient was diagnosed with acute stroke. He was also found to have bilateral pulmonary embolism. He was also found to be in atrial fibrillation on admission. An echocardiogram was performed for further investigation and that revealed severe cardiomyopathy was EF between 25-30% with possible LV thrombus. The patient was seen this morning. He is lethargic this morning, difficult to arouse. Hemodynamically he is a somewhat is stable. He is on oral anticoagulation Eliquis 10mg BID. Telemetry reviewed, Atrial fibrillation with HR 115-120s. His liver function tests were elevated because of low blood pressure which has resolved and they have been trending down. Overall the prognosis is poor. He is also on amiodarone 400mg BID (Started 03/15/2022), metoprolol tartrate 12.5mg BID Past, sodium 146, potassium 4.3, BUN 20, serum creatinine 0.8 GENERAL:Lethargic, No acute distress. NECK: Supple without JVD or thyromegaly. LUNGS: Breath sounds diminished in bases to auscultation bilaterally. Respiration equal and unlabored. No wheezes, rales or rhonchi. HEART: Irregular rate and rhythm, systolic murmur, No rubs or gallops. S1 and S2 heard. EXTREMITIES: Normal range of motion, no edema. No clubbing or cyanosis. Per ipheral pulses intact. ASSESSMENT Paroxysmal Atrial fibrillation with rapid ventricular response, currently anticoagulated with Eliquis Severe cardiomyopathy of unknown etiology LV thrombus Acute left parietal lobe infarct Bilateral pulmonary emboli with suspected pulmonary infarct in the right middle lobe Heavy daily alcohol use Transaminitis Lactic acidosis Acute kidney inury Chronic tobacco dependence Altered mental status PLAN Increase metoprolol tartrate 25mg BID Start low dose lisinopril Continue amiodarone Monitor renal function and electrolytes Further recommendations based on clinical course Nurse Practitioner note has been reviewed, I agree with a documented findings and plan of care. Patient was seen and examined. Objective - Vital Signs Vital signs: Vital Signs Temp 98.0 F 03/19/22 11:56 Pulse 83 03/19/22 11:56 Resp 20 03/19/22 11:56 BP 120/85 03/19/22 11:56 Pulse Ox 93 L 03/19/22 11:56 Intake & Output 03/18/22 03/19/22 03/19/22 18:59 06:59 18:59 Intake Total 993 435 Output Total 350 600 Balance 643 -165 Intake: IV 675 375 Lactated Ringers 1,000 ml 675 375 @ 75 mls/hr IV .[id number] [facility] Rx#:[id number] Oral 318 60 Output: Urine 350 600 Other: Voiding Method Indwelling Catheter Indwelling Catheter Indwelling Catheter - Labs CBC & Chem 7: 03/19/22 06:06 03/19/22 06:06 Labs: Abnormal Lab Results - Last 24 Hours (Table) 03/18/22 03/19/22 03/19/22 Range/Units 06:23 06:06 06:06 Hct 54.7 H 55.9 H (39.0-53.0) % MCV 102.6 H 105.4 H (80.0-100.0) fL MCHC 30.7 L 30.0 L (31.0-37.0) g/dL Plt Count 133 L 117 L (150-450) k/uL Lymphocytes # 0.5 L (1.0-4.8) k/uL Sodium 146 H (137-145) mmol/L Chloride 113 H (98-107) mmol/L Calcium 7.9 L (8.4-10.2) mg/dL
--- NOTE | 2022-03-19 12:35 | P.PN ---
Subjective Progress Note Date: 03/19/22 I am seeing the patient for the first time during this admission. Please refer to Dr. Bear's notes for further details. The patient is seen at bedside and per nurse the patient has been more drowsy. His total bilirubin is trending upwards and appears more jaundice. The patient has a stroke on the left hemisphere. He has hepatic injury due to alcohol use. Patient had CT head yesterday and it is reported as subacute infarct in the left temporal lobe involving the insular cortex. The infarct is evolving and appears larger and less dense. There is no acute hemorrhage or mass effect. Objective - Vital Signs Vital signs: Vital Signs Temp 98.0 F 03/19/22 11:56 Pulse 83 03/19/22 11:56 Resp 20 03/19/22 11:56 BP 120/85 03/19/22 11:56 Pulse Ox 93 L 03/19/22 11:56 Intake & Output 03/18/22 03/19/22 03/19/22 18:59 06:59 18:59 Intake Total 993 435 Output Total 350 600 Balance 643 -165 Intake: IV 675 375 Lactated Ringers 1,000 ml 675 375 @ 75 mls/hr IV .[id number] [facility] Rx#:[id number] Oral 318 60 Output: Urine 350 600 Other: Voiding Method Indwelling Catheter Indwelling Catheter Indwelling Catheter - Exam GENERAL: The patient is lying in bed and does not appear in acute distress. But is lethargic and is jaundice. . INTEGUMENTARY: Face is jaundice. NEUROLOGICAL: Limited because of his condition/cooperation. Higher mental function: The patient is severely drowsy. He would open his eyes and show thumbs up but otherwise not verbalizing. Cranial nerves: The pupils are round, equal and reactive to light. Right lower facial droop. Is mute. Otherwise could not assess rest. Motor: The strength over the left side: Is able to lift above gravity. No movement noted over the right side. Cerebellum: Could not assess. Sensation: Could not assess. - Labs CBC & Chem 7: 03/19/22 06:06 03/19/22 06:06 Labs: Abnormal Lab Results - Last 24 Hours (Table) 03/18/22 03/19/22 03/19/22 Range/Units 06:23 06:06 06:06 Hct 54.7 H 55.9 H (39.0-53.0) % MCV 102.6 H 105.4 H (80.0-100.0) fL MCHC 30.7 L 30.0 L (31.0-37.0) g/dL Plt Count 133 L 117 L (150-450) k/uL Lymphocytes # 0.5 L (1.0-4.8) k/uL Sodium 146 H (137-145) mmol/L Chloride 113 H (98-107) mmol/L Calcium 7.9 L (8.4-10.2) mg/dL Urine RBC (0-5) /hpf Urine WBC (0-5) /hpf Urine Mucus (None) /hpf 03/19/22 Range/Units 10:04 Hct (39.0-53.0) % MCV (80.0-100.0) fL MCHC (31.0-37.0) g/dL Plt Count (150-450) k/uL Lymphocytes # (1.0-4.8) k/uL Sodium (137-145) mmol/L Chloride (98-107) mmol/L Calcium (8.4-10.2) mg/dL Urine RBC >182 H (0-5) /hpf Urine WBC >182 H (0-5) /hpf Urine Mucus Many H (None) /hpf Assessment and Plan Assessment: * Acute ischemic stroke involving left temporal, likely embolic. Patient clinically has significant dysarthria, expressive aphasia, right hemiparesis with right hemisensory loss. * Hepatic encephalopathy * New-onset/diagnosed atrial fibrillation * Pulmonary embolism, with pulmonary infarct. * Acute kidney injury secondary to ATN secondary to hemodynamic instability vs contrast-induced. Nephrology on board. * Macrocytosis * Acute hepatic injury due to alcoholic hepatitis * Probable underlying alcoholic cirrhosis of the liver (per GI report) * Lactic acidosis * History of alcoholism. Plan: * Patient is on high-dose Eliquis 10 mg twice a day, and cardiology plan is to decrease dose to 5 mg twice a day from 03/21/2022. Cardiology on board. * Repeat CT head without contrast 03/18/2022, revealed subacute infarct in the left temporal lobe involving the insular cortex. The infarct is evolving and appears slightly larger and less dense. There is no acute hemorrhage or mass effect. I personally reviewed CT head and agree with the findings. * Primary team ordered repeat CT head to rule out hemorrhage especially since patient is on eliquis and seems more drowsy. If negative for bleed patient symptoms due to hepatic encephalopathy. * 2-D echo with bubble study was performed 03/13/2022, which revealed severely r educed left ventricular systolic function, with EF of 20-25%. There is possible left ventricular apical mural thrombus. * CTA of head and neck showed no significant stenosis. * PT OT, speech therapy. * Hemoglobin A1c 5.2, lipid panel cholesterol 61, LDL 36, HDL 9.2 and triglycerides 78. No indication for statins. Patient already has severely abnormal hepatic functions. * B12 > 2000, folate 16.10 (macrocytosis likely due to alcoholism). * Continue thiamine, multivitamins. Watch for alcohol withdrawal. * Physical medicine and rehab consultation report noted. * Medical management as per IM The plan is discussed with the patient's nurse. Isaiah Rutherford M.D. Neuro-Hospitalist Time with Patient: Less than 30
--- NOTE | 2022-03-19 13:12 | CT ---
EXAMINATION TYPE: CT brain wo con DATE OF EXAM: 03/19/2022 COMPARISON: CT dated 03/18/2022 HISTORY: Confusion CT DLP: 1099.4 mGycm Automated exposure control for dose reduction was used. TECHNIQUE: CT scan of the brain is performed without IV contrast administration. FINDINGS: Known evolving left posterior insular cortex and left posterior basal ganglia subacute infarct. No si gnificant hemorrhagic transformation. No acute intracranial hemorrhage. No midline shift, herniation or ventriculomegaly. Unremarkable basal cisterns, sella and CP angles. No gross space-occupying lesion or mass effect. Unremarkable orbits. Mucosal thickening of the left maxillary sinus and left ethmoid air cells. Clear mastoid air cells. Unremarkable calvarial bones. IMPRESSION: Redemonstration of the known left posterior insular cortex and left posterior basal ganglia subacute infarct. No significant hemorrhagic transformation. No new intracranial bleeding or new mass effect.
[2022-03-19] MEDS: METOPROLOL TARTRATE 25 MG TAB PO SCH ×2 (13:14→20:59)
[2022-03-19] MEDS: THIAMINE 100 MG TAB PO SCH ×2 (13:14→20:59)
[2022-03-19] MEDS: FAMOTIDINE 20 MG TAB PO SCH ×2 (13:14→20:59)
[2022-03-19] MEDS: APIXABAN 5 MG TAB PO SCH (13:14)
[2022-03-19] MEDS: AMIODARONE 200 MG TAB PO SCH ×2 (13:14→21:00)
[2022-03-19] MEDS: PIPERACILLIN-TAZOBACTAM 3.375 GM in SODIUM CHLORIDE 0.9% 100 ML IVPB SCH ×2 (13:15→19:02)
[2022-03-19 15:07] LABS: Albumin 2.7 g/dL (3.5-5.0); Bilirubin, Conjugated 12.1 mg/dL (0.0-0.3); Bilirubin, Delta 4.3 mg/dL (0.0-0.2); Bilirubin,Unconjugated 3.2 mg/dL (0.0-1.1); Total Protein 5.9 g/dL (6.3-8.2)
[2022-03-19 15:12] LABS: Total Bilirubin 19.6 mg/dL (0.2-1.3)
--- NOTE | 2022-03-19 16:43 | P.PN ---
Subjective 56-year-old male with heavy all call abuse history came in with complaints of right-sided facial droop and right arm weakness along with slurred speech. Patient had these symptoms going on and off for about 3 days. Patient is also found to be in atrial fibrillation. Patient denied any chest pain or shortness of breath but patient is is for incidentally found to have bilateral pulmonary emboli patient denied any leg pain. Patient has highly elevated liver enzymes related to heavy alcohol use. AST and ALT consistent with the alcoholic liver disease patient has elevated MCV as well. Patient was on Cardizem drip which is presently discontinued and cardiology evaluated the patient echo is pending. Patient the has significant metabolic acidosis, both anion gap and non-anion gap metabolic acidosis. I'll obtain lactic acid level. Patient probably has cirrhosis as well. She has a compensated metabolic alkalosis. 03/14/2022 Patient remains in the ICU in critical condition. He is aphasic but Can make it through gestures , with mumbles. He has severe right hemiplegia. He has been on respiratory symptoms and no abdominal pain or distention. Blood pressure is 91/72. He is saturating 98% on 6 L In the morning he was on Cardizem drip which is switched Wellbutrin. Also is on heparin drip. He has a Lewis catheter. He still nothing by mouth. WBCs is 20,000, creatinine 3.2, liver enzymes elevated with AST 4086 and ALT 2042. Swallow evaluation showing no aspiration. Ejection fraction showing a 20-25% with global hypokinesia and LV thrombosis. CTA showed scattered pulmonary emboli with pulmonary infarction. CT of the brain showing possible acute left parietal infarct 03/15/2022 patient clinically looks the same or maybe slight improvement. He is awake but dysphasic and dysarthric. His total has right hemiplegia. Repeat CT showing similar subacute left temporal infarct with no change. Neurologist team so following the patient closely. Also he is continued on heparin drip but switched today and to Eliquis for his pulmonary embolism and left ventricular femoral thrombosis. Also amiodarone was switched from IV effusion and to oral form for his new onset atrial fibrillation. Liver enzymes aren't Cueva improving secondary to alcoholic hepatitis. GI team evaluation today. Echocardiogram showing cardiomyopathy with ejection fraction 20-25%, however patient will need cardiac cath when kidney function improved per her inker and opaquer. Creatinine trending down today 3.2 down to 2.0. The biopsy improved also down to 12.3. Patient still has a Lewis catheter with evidence of hematuria however hemoglobin stable and normal 16. Waxer him on the case Resume the care from Dr. handy farley 08/15/1922 Patient today is obtunded, he does not wake up to verbal or tactile stimuli. Vitas looks stable, febrile. Repeat CT of the brain she is negative for acute hemorrhage while patient is on anticoagulation. Also neurologist on the case. Further workup showed possible new pneumonia, aspiration pneumonia is highly suspected and patient is started on Zosyn. Also patient is been followed closely by inker and opaquer team for his A. fib and RVR on admission, currently rate controlled and he is on anticoagulation with Eliquis, also he has severe cardiomyopathy with EF 20-25%, unknown etiology. Photovoltaic Installer. Also with LV mural thrombosis. Significant alcoholic hepatitis. Liver enzymes are trending down but bilirubin is going up at 19.6. Patient evaluated by GI team last week, no GI coverage this week. Patient jaundice is a due to alcoholic liver disease. GI team and a 12 blade to before it will decrease per their recommendation however we will keep close monitoring. Ammo preston level less than 9. We will check INR tomorrow. Repeat labs tomorrow. Review of system: N/a, patient could not provide information. Active Medications Generic Name Dose Route Start Last Admin Trade Name Freq PRN Reason Stop Dose Admin Amiodarone HCl 400 mg 03/15/22 09:00 03/19/22 13:14 Amiodarone 200 Mg Tab PO Not Given BID [facility] Apixaban 10 mg 03/15/22 09:30 03/19/22 13:14 Apixaban 5 Mg Tab PO 03/21/22 21:01 Not Given BID [facility] Protocol Famotidine 10 mg 03/16/22 21:00 03/19/22 13:14 Famotidine 20 Mg Tab PO Not Given Q12HR [facility] Sodium Chloride 1,000 mls @ 75 mls/hr 03/19/22 10:45 03/19/22 10:48 Saline 0.45% IV 75 mls/hr .[id number] [facility] Administration Piperacillin Sod/Tazobactam 100 mls @ 25 mls/hr 03/19/22 11:00 03/19/22 13:15 Sod 3.375 gm/ Sodium Chloride IVPB 25 mls/hr Q8H [facility] Administration Protocol Lisinopril 2.5 mg 03/19/22 10:00 03/19/22 13:14 Lisinopril 2.5 Mg Tab PO Not Given DAILY [facility] Lorazepam 1 mg 03/12/22 18:36 03/17/22 23:13 Lorazepam 2 Mg/Ml Inj IV 1 mg Q2HR PRN Administration CIWA 8 or 9 Lorazepam 1 mg 03/12/22 18:36 03/19/22 03:00 Lorazepam 2 Mg/Ml Inj IV 1 mg Q1HR PRN Administration CIWA 10 to 15 Metoprolol Tartrate 25 mg 03/19/22 09:56 03/19/22 13:14 Metoprolol Tartrate 25 Mg Tab PO Not Given BID [facility] Naloxone HCl 0.2 mg 03/12/22 18:47 Naloxone 0.4 Mg/Ml 1 Ml Vial IV Q2M PRN Opioid Reversal Thiamine HCl 100 mg 03/15/22 09:00 03/19/22 13:14 Thiamine 100 Mg Tab PO Not Given BID [facility] Objective - Vital Signs Vital signs: Vital Signs Temp 98.0 F 03/19/22 11:56 Pulse 83 03/19/22 11:56 Resp 20 03/19/22 14:00 BP 120/85 03/19/22 11:56 Pulse Ox 93 L 03/19/22 11:56 Intake & Output 03/18/22 03/19/22 03/19/22 18:59 06:59 18:59 Intake Total 993 435 0 Output Total 350 600 120 Balance 643 -165 -120 Intake: IV 675 375 Lactated Ringers 1,000 ml 675 375 @ 75 mls/hr IV .[id number] [facility] Rx#:[id number] Oral 318 60 0 Output: Urine 350 600 120 Other: Voiding Method Indwelling Catheter Indwelling Catheter Indwelling Catheter - Exam - GENERAL: The patient is obtunded and does not follows commands. Patient is aphasic. Not look in distress HEENT: Pupils are round and equally reacting to light. EOMI. No scleral icterus. No conjunctival pallor. Normocephalic, atraumatic. No pharyngeal erythema. No thyromegaly. CARDIOVASCULAR: S1 and S2 present. No murmurs, rubs, or gallops. PULMONARY: Chest is clear to auscultation, no wheezing or crackles. ABDOMEN: Soft, nontender, nondistended, normoactive bowel sounds. No palpable organomegaly. MUSCULOSKELETAL: No joint swelling or deformity. EXTREMITIES: No cyanosis, clubbing, or pedal edema. -NEUROLOGICAL: Patient is aphasic. He has tried hemiplegia, barely moving his right side. SKIN: No rashes. no petechiae. - Labs CBC & Chem 7: 03/19/22 06:06 03/19/22 06:06 Labs: Abnormal Lab Results - Last 24 Hours (Table) 03/19/22 03/19/22 03/19/22 Range/Units 06:06 06:06 10:04 Hct 55.9 H (39.0-53.0) % MCV 105.4 H (80.0-100.0) fL MCHC 30.0 L (31.0-37.0) g/dL Plt Count 117 L (150-450) k/uL Sodium 146 H (137-145) mmol/L Chloride 113 H (98-107) mmol/L Calcium 7.9 L (8.4-10.2) mg/dL Total Bilirubin (0.2-1.3) mg/dL Conjugated Bilirubin (0.0-0.3) mg/dL Unconjugated Bilirubin (0.0-1.1) mg/dL Delta Bilirubin (0.0-0.2) mg/dL AST (17-59) U/L ALT (4-49) U/L Total Protein (6.3-8.2) g/dL Albumin (3.5-5.0) g/dL Urine RBC >182 H (0-5) /hpf Urine WBC >182 H (0-5) /hpf Urine Mucus Many H (None) /hpf 03/19/22 Range/Units 14:35 Hct (39.0-53.0) % MCV (80.0-100.0) fL MCHC (31.0-37.0) g/dL Plt Count (150-450) k/uL Sodium (137-145) mmol/L Chloride (98-107) mmol/L Calcium (8.4-10.2) mg/dL Total Bilirubin 19.6 H* (0.2-1.3) mg/dL Conjugated Bilirubin 12.1 H (0.0-0.3) mg/dL Unconjugated Bilirubin 3.2 H (0.0-1.1) mg/dL Delta Bilirubin 4.3 H (0.0-0.2) mg/dL AST 145 H (17-59) U/L ALT 455 H (4-49) U/L Total Protein 5.9 L (6.3-8.2) g/dL Albumin 2.7 L (3.5-5.0) g/dL Urine RBC (0-5) /hpf Urine WBC (0-5) /hpf Urine Mucus (None) /hpf Assessment and Plan Assessment: Possible aspiration pneumonia Metabolic/toxic encephalopathy Alcoholic hepatitis Alcoholic liver jaundice Acute left parietal/temporal stroke with right hemiplegia, most likely embolic from atrial fibrillation and LV thrombosis Severe Cardiomyopathy with ejection fraction 20-25%, unknown etiology New-onset atrial fibrillation, currently rate controlled Bilateral scattered pulmonary emboli's with pulmonary infarction Acute kidney injury. Resolved Alcoholic abuse at risk of withdrawal Left ventricular mural thrombus Plan: This is a pleasant 56 years old male who presents with multiple problems including CVA, A. fib, PE, DEVAN, CMP Switch heparin drip and Eliquis.. Also metoprolol and lisinopril operative per inker and opaquer Start Zosyn Continue with oral amiodarone per inker and opaquer Continue with CIWA protocol, continue with a mean Continue with IV fluid per Waxer Monitor INR. Continue with anticoagulation per inker and opaquer Several consultants. Following the patient including pulmonary/critical care, attendance clerk, neurologist, inker and opaquer, surgeon's both vascular and general. GI team consult Labs and medication were reviewed.. Continue same treatment. Continue with symptomatic treatment. Resume home medication. Monitor lytes and vitals. DVT and GI prophylaxis. Further recommendations as per clinical course of the patient DVT prophylaxis: Eliquis GI Prophylaxis: Pepcid Prognosis is guarded and poor
[2022-03-19] MEDS ORDERED: HEPARIN SODIUM 1,000 UN/ML (10ML VL) IV PRN (18:30)
[2022-03-19] MEDS ORDERED: HEPARIN SOD,PORK IN 0.45% NACL 25,000 UNIT in 0.45% NACL 1 250ML.BAG IV SCH (18:30)
[2022-03-19] MEDS ORDERED: HEPARIN SODIUM 1,000 UN/ML (10ML VL) IV ONE (18:30)
[2022-03-19] MEDS ORDERED: DILTIAZEM 125 MG in SODIUM CHLORIDE 0.9% 100 ML IV SCH (18:45)
[2022-03-19 19:22] LABS: INR 2.1 (<1.2); Prothrombin Time 20.8 sec (9.0-12.0)
[2022-03-19] MEDS ORDERED: METOPROLOL TARTRATE 12.5 MG TAB PO SCH (21:00)
[2022-03-20] MEDS: SODIUM CHLORIDE 0.45% 1,000 ML IV SCH (01:00)
[2022-03-20] MEDS: LORazepam 2 MG/ML INJ IV PRN (02:45)
[2022-03-20] MEDS: PIPERACILLIN-TAZOBACTAM 3.375 GM in SODIUM CHLORIDE 0.9% 100 ML IVPB SCH ×2 (03:22→11:56)
[2022-03-20] MEDS ORDERED: METOPROLOL TARTRATE 50 MG TAB PO SCH (09:00)
--- NOTE | 2022-03-20 09:01 | XR ---
EXAMINATION TYPE: XR chest 1V DATE OF EXAM: 03/20/2022 COMPARISON: 03/19/2022 HISTORY: 56 year-old male shortness of breath TECHNIQUE: Single frontal view of the chest is obtained. FINDINGS: Heart upper limits of normal in size consistent new focal airspace opacity at the periphery of the ri ght lower lung. No sizable pleural effusion. IMPRESSION: Continued focal airspace disease/pneumonia at the right base.
[2022-03-20] MEDS: FAMOTIDINE 20 MG TAB PO SCH (09:30)
[2022-03-20] MEDS: THIAMINE 100 MG TAB PO SCH (09:30)
[2022-03-20] MEDS: AMIODARONE 200 MG TAB PO SCH (09:30)
[2022-03-20 10:02] VITALS: RESP 18; TEMP 97.6
--- NOTE | 2022-03-20 11:19 | P.PN ---
Subjective Patient is seen in follow-up for acute kidney injury. Renal function back to baseline. Morning labs pending. Resting in bed. Not a reliable historian. Hemodynamically stable. Has a Lewis catheter. Nonoliguric.receiving half- normal saline. Vital signs are stable. General: Resting in bed. HEENT: Head exam is unremarkable. On nasal cannula. LUNGS: Breath sounds decreased. HEART: Rate and Rhythm are regular. ABDOMEN: Soft, no distention. EXTREMITITES: No edema. Objective - Vital Signs Vital signs: Vital Signs Temp 97.6 F 03/20/22 08:00 Pulse 124 H 03/20/22 08:00 Resp 18 03/20/22 08:00 BP 117/83 03/20/22 08:00 Pulse Ox 91 L 03/20/22 08:00 Intake & Output 03/19/22 03/20/22 03/20/22 18:59 06:59 18:59 Intake Total 0 609.957 0 Output Total 720 500 Balance -720 109.957 0 Intake: Intake, IV Titration 609.957 Amount Diltiazem 125 mg In 73.042 Sodium Chloride 0.9% 100 ml @ 5 MG/HR 5 mls/hr IV .Q24H [facility] Rx#:[id number] Heparin Sod,Pork in 0.45% 111.915 NaCl 25,000 unit In 0.45 % NaCl 1 250ml.bag @ 18 UNITS/KG/HR 17.262 mls/hr IV .[id number] [facility] Rx#: [id number] Sodium Chloride 0.45% 1, 425 000 ml @ 75 mls/hr IV . [id number] [facility] Rx#:[id number] Oral 0 0 Output: Urine 720 500 Other: Voiding Method Indwelling Catheter Indwelling Catheter Indwelling Catheter # Voids 0 - Labs CBC & Chem 7: 03/19/22 06:06 03/19/22 06:06 Labs: Abnormal Lab Results - Last 24 Hours (Table) 03/19/22 03/19/22 03/19/22 Range/Units 10:04 14:35 18:41 PT 20.8 H (9.0-12.0) sec INR 2.1 H (<1.2) APTT (22.0-30.0) sec Total Bilirubin 19.6 H* (0.2-1.3) mg/dL Conjugated Bilirubin 12.1 H (0.0-0.3) mg/dL Unconjugated Bilirubin 3.2 H (0.0-1.1) mg/dL Delta Bilirubin 4.3 H (0.0-0.2) mg/dL AST 145 H (17-59) U/L ALT 455 H (4-49) U/L Total Protein 5.9 L (6.3-8.2) g/dL Albumin 2.7 L (3.5-5.0) g/dL Urine RBC >182 H (0-5) /hpf Urine WBC >182 H (0-5) /hpf Urine Mucus Many H (None) /hpf 03/20/22 Range/Units 00:29 PT (9.0-12.0) sec INR (<1.2) APTT >200.0 H* (22.0-30.0) sec Total Bilirubin (0.2-1.3) mg/dL Conjugated Bilirubin (0.0-0.3) mg/dL Unconjugated Bilirubin (0.0-1.1) mg/dL Delta Bilirubin (0.0-0.2) mg/dL AST (17-59) U/L ALT (4-49) U/L Total Protein (6.3-8.2) g/dL Albumin (3.5-5.0) g/dL Urine RBC (0-5) /hpf Urine WBC (0-5) /hpf Urine Mucus (None) /hpf Microbiology - Last 24 Hours (Table) 03/19/22 10:04 Urine Culture - Preliminary Urine,Voided Assessment and Plan Plan: Assessment: 1. Acute kidney injury secondary to ATN secondary to hemodynamic instability. Also component of contrast-induced acute kidney injury. Patient received IV contrast on 03/12/2022. Creatinine was 1.5 on admission and peaked at 3.28 - 0.89 yesterday. Unknown baseline renal function. Now nonoliguric. No hydronephrosis noted on imaging. UPC 0.11. 2. A. fib with RVR status post Cardizem and amiodarone drip. Now on oral amiodarone. 3. PE and pulmonary infarct on anticoagulation. 4. Metabolic acidosis secondary to acute kidney injury and lactic acidosis. Improved. 5. Hyperkalemia secondary to acute kidney injury and metabolic acidosis. Hemolyzed sample. Resolved. 6. Alcohol abuse. 7. Acute CVA. 8. Cardiomyopathy with ejection fraction of 20-25%. Questionable left ventr icular thrombus present. 9. ?Ischemic bowel. Surgery following. 10. Hypernatremia from lack of oral water intake. Plan: Maintain half normal saline at 75 mL an hour. Avoid nephrotoxins. Continue to monitor renal function and urine output. Monitor volume status closely due to depressed EF. Morning labs pending.
--- NOTE | 2022-03-20 12:38 | P.PN ---
Subjective This is a 56-year-old gentleman with a known history of excessive alcohol use was brought to the emergency department for change in mental status. He does not follow with a sleeping car conductor outpatient. Apparently the patient was experiencing intermittent episodes of right sided weakness, aphasia and slurred speech subsequently the patient fell on the ground and he was brought to the emergency department on 03/13/2022. The patient was diagnosed with acute stroke. He was also found to have bilateral pulmonary embolism. He was also found to be in atrial fibrillation on admission. An echocardiogram was performed for further investigation and that revealed severe cardiomyopathy was EF between 25-30% with possible LV thrombus. The patient was seen this morning. He is lethargic this morning, difficult to arouse. Hemodynamically his BP is stable 127/74. Overnight patient continued to be tachycardic with atrial fibrillation with RVR HR 120-140s. He was started on IV Cardizem drip. Telemetry reviewed, Atrial fibrillation with HR 120-140s. His liver function tests were elevated because of low blood pressure which has resolved and they have been trending down. Overall the prognosis is poor. Tbili is 19 He is also on amiodarone 400mg BID (Started 03/15/2022), metoprolol tartrate 25mg BID, IV Cardizem at 10mg/hr, Transitioned to IV heparin, Lisinopril 2.5mg daily GENERAL:Lethargic, No acute distress. NECK: Supple without JVD HEENT: Sclerae jaundice LUNGS: Breath sounds diminished in bases to auscultation bilaterally. Respiration equal and unlabored. No wheezes, rales or rhonchi. HEART: Irregular tachycardiac rate and rhythm, systolic murmur, No rubs or gallops. S1 and S2 heard. EXTREMITIES: Normal range of motion, no edema. No clubbing or cyanosis. Peripheral pulses intact. SKIN: Jaundice ASSESSMENT Paroxysmal Atrial fibrillation with rapid ventricular response, currently anticoagulated with Eliquis Severe cardiomyopathy of unknown etiology LV thrombus Acute left parietal lobe infarct Bilateral pulmonary emboli with suspected pulmonary infarct in the right middle lobe Heavy daily alcohol use Transaminitis Lactic acidosis Acute kidney inury Chronic tobacco dependence Altered mental status PLAN Recommended to increase metoprolol tartrate 50mg BID. Stop IV Cardizem Continue lisinopril 2.5mg Daily and amiodarone Currently transitioned to IV Heparin No further changes at this time from a cardiology perspective. Patient has been made a DNR, plan for hospice meeting with family today. Prognosis is guarded. Nurse Practitioner note has been reviewed, I agree with a documented findings and plan of care. Patient was seen and examined. Objective - Vital Signs Vital signs: Vital Signs Temp 97.6 F 03/20/22 08:00 Pulse 124 H 03/20/22 08:00 Resp 18 03/20/22 08:00 BP 117/83 03/20/22 08:00 Pulse Ox 91 L 03/20/22 08:00 Intake & Output 03/19/22 03/20/22 03/20/22 18:59 06:59 18:59 Intake Total 0 609.957 0 Output Total 720 500 Balance -720 109.957 0 Intake: Intake, IV Titration 609.957 Amount Diltiazem 125 mg In 73.042 Sodium Chloride 0.9% 100 ml @ 5 MG/HR 5 mls/hr IV .Q24H [facility] Rx#:[id number] Heparin Sod,Pork in 0.45% 111.915 NaCl 25,000 unit In 0.45 % NaCl 1 250ml.bag @ 18 UNITS/KG/HR 17.262 mls/hr IV .[id number] [facility] Rx#: [id number] Sodium Chloride 0.45% 1, 425 000 ml @ 75 mls/hr IV . [id number] [facility] Rx#:[id number] Oral 0 0 Output: Urine 720 500 Other: Voiding Method Indwelling Catheter Indwelling Catheter Indwelling Catheter # Voids 0 - Labs CBC & Chem 7: 03/20/22 12:25 03/20/22 12:24 Labs: Abnormal Lab Results - Last 24 Hours (Table) 03/19/22 03/19/22 03/19/22 Range/Units 10:04 14:35 18:41 PT 20.8 H (9.0-12.0) sec INR 2.1 H (<1.2) APTT (22.0-30.0) sec Total Bilirubin 19.6 H* (0.2-1.3) mg/dL Conjugated Bilirubin 12.1 H (0.0-0.3) mg/dL Unconjugated Bilirubin 3.2 H (0.0-1.1) mg/dL Delta Bilirubin 4.3 H (0.0-0.2) mg/dL AST 145 H (17-59) U/L ALT 455 H (4-49) U/L Total Protein 5.9 L (6.3-8.2) g/dL Albumin 2.7 L (3.5-5.0) g/dL Urine RBC >182 H (0-5) /hpf Urine WBC >182 H (0-5) /hpf Urine Mucus Many H (None) /hpf 03/20/22 Range/Units 00:29 PT (9.0-12.0) sec INR (<1.2) APTT >200.0 H* (22.0-30.0) sec Total Bilirubin (0.2-1.3) mg/dL Conjugated Bilirubin (0.0-0.3) mg/dL Unconjugated Bilirubin (0.0-1.1) mg/dL Delta Bilirubin (0.0-0.2) mg/dL AST (17-59) U/L ALT (4-49) U/L Total Protein (6.3-8.2) g/dL Albumin (3.5-5.0) g/dL Urine RBC (0-5) /hpf Urine WBC (0-5) /hpf Urine Mucus (None) /hpf Microbiology - Last 24 Hours (Table) 03/19/22 10:04 Urine Culture - Preliminary Urine,Voided
[2022-03-20 13:00] LABS: Basophils % (A) 0 %; Eosinophils # (A) 0.1 k/uL (0-0.7); Eosinophils % (A) 1 %; HCT 54.9 % (39.0-53.0); HGB 16.8 gm/dL (13.0-17.5); Hypochromasia Moderate; Lymphocytes # (A) 0.7 k/uL (1.0-4.8); Lymphocytes % (A) 9 %; MCH 31.5 pg (25.0-35.0); MCHC 30.6 g/dL (31.0-37.0); MCV 103.2 fL (80.0-100.0); Macrocytosis Slight; Mean Platelet Volume 10.4; Monocytes # (A) 0.7 k/uL (0-1.0); Monocytes % (A) 9 %; Neutrophils # (A) 5.8 k/uL (1.3-7.7); Neutrophils % (A) 80 %; Platelet Count 135 k/uL (150-450); RBC 5.32 m/uL (4.30-5.90); RDW 14.9 % (11.5-15.5); WBC 7.2 k/uL (3.8-10.6)
[2022-03-20 13:34] VITALS: BP 105/70; PULSE 138
[2022-03-20 13:37] LABS: INR 1.9 (<1.2); Prothrombin Time 19.1 sec (9.0-12.0)
[2022-03-20 13:41] LABS: Partial Thromboplastin Time >200.0 sec (22.0-30.0)
[2022-03-20 13:51] LABS: ALT 326 U/L (4-49); AST 108 U/L (17-59); African American GFR (CKD) >90 (>60 ml/min/1.73 sqM); Albumin 2.4 g/dL (3.5-5.0); Alkaline Phosphatase 95 U/L (38-126); Anion Gap 8 mmol/L; Bilirubin, Conjugated 11.7 mg/dL (0.0-0.3); Bilirubin, Delta 3.6 mg/dL (0.0-0.2); Blood Urea Nitrogen 22 mg/dL (9-20); Calcium 7.8 mg/dL (8.4-10.2); Carbon Dioxide 25 mmol/L (22-30); Chloride 113 mmol/L (98-107); Glucose 80 mg/dL (74-99); Magnesium 2.2 mg/dL (1.6-2.3); Non-African American GFR(CKD) 89 (>60 ml/min/1.73 sqM); Potassium 4.2 mmol/L (3.5-5.1); Sodium 146 mmol/L (137-145); Total Protein 5.7 g/dL (6.3-8.2)
[2022-03-20 13:53] LABS: Total Bilirubin 18.3 mg/dL (0.2-1.3)
[2022-03-20] MEDS ORDERED: DEXTROSE 5% IN WATER 1,000 ML IV SCH (14:00)
--- NOTE | 2022-03-20 17:07 | P.DS ---
Providers Date of admission: 03/12/22 18:47 Attending physician: Marianna Barksdale Consults: 03/12/22 18:47 Consult Physician Routine Consulting Provider: Christel Bear Consult Reason/Comments: CVA Do you want consulting provider notified?: Yes Consult Physician Stat Consulting Provider: [facility] Consult Reason/Comments: A. fib with rapid ventricular response Do you want consulting provider notified?: Yes 03/12/22 22:36 Consult Physician Routine Consulting Provider: Eduard Frederick Consult Reason/Comments: intensive care PE Do you want consulting provider notified?: Already Contacted 03/13/22 07:54 Consult Physician Routine Consulting Provider: Jannette Rodriguez Consult Reason/Comments: stan Do you want consulting provider notified?: Yes 03/13/22 23:03 Consult Physician Routine Consulting Provider: Fahran Norwood Consult Reason/Comments: R/O Ischemic Bowel/Ileus, inc lactic Do you want consulting provider notified?: Yes, Notify in am 03/15/22 08:51 Consult Physician Routine Consulting Provider: Mare Jones Consult Reason/Comments: elevated liver enzymes/bilirubin Do you want consulting provider notified?: Already Contacted 03/16/22 11:01 Consult Physician Routine Consulting Provider: Pacheco Ríos Consult Reason/Comments: eval for IPR - Dx: CVA Do you want consulting provider notified?: Yes Primary care physician: Stated None Hospital Course: Diagnoses: aspiration pneumonia Metabolic/toxic encephalopathy 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 Resolved Alcoholic abuse at risk of withdrawal Left ventricular mural thrombus Hospital course: 56-year-old male with heavy all call abuse history came in with complaints of right-sided facial droop and right arm weakness along with slurred speech. Patient initially was admitted with severe acute left temporoparietal infarct with severe right sided hemiplegia, also he has evidence of other significant medical problems, including new atrial fibrillation, bilateral pulmonary emboli sm, acute kidney injury which is resolved, alcoholic hepatitis, cardiomyopathy probably secondary to alcoholic affect with ejection fraction 20-25% with Saphenous mural thrombosis, alcoholic hepatitis and jaundice. And then patient was severely aphasic he could not talk or answer questions and later on within a few days he's been complicated by aspiration pneumonia. Yesterday was his obtunded, today he is more awake but only mumbles, does not open his eyes spontaneously, does not follow commands. He still severely confused. He has several CT of the brain's 3, last study was showing stable CT findings of acute stroke. No hemorrhage. Patient kept on anticoagulation with heparin drip and Cardizem drip for his A. fib as patient is nothing by mouth now because of his dysphagia and aspiration. Today I received a call from the bedside nurse after rounds, patient's sister was at bedside and wanted her brother to be under hospice care goes she told me she knows her brother and he never wants this, she told me he has a daughter and son who are NOT close to him for the last 15 years however they are next of kin, she provided the phone number for his daughter Nallely at [phone], whom I talked to her and she confirmed to me she is next of kin and she told me she is going to come to the hospital and visit her father today and she wanted to talk to hospice team. Upon family requested hospice consult was placed. Later on patient was accepted under hospice care per family request. However patient's prognosis is extremely poor given his multiple comorbidities and poor quality of life. Including all the above. Because patient is not improving despite prolonged hospitalization, several treatment courses of several consultants on the case. Patient will benefit from palliative care and comfort measures. Patient is no code Prognosis is extremely poor Physical exam -Gen: patient is a severely confused, drowsy and does not follow commands at mumbles. CVS: S1-S2, RRR, no murmur Lungs: B/L CTA, no wheezing -Abdomen: soft, no distention, no tenderness, positive bowel sounds. Lewis catheter with bloody urine Extremity: no leg edema or induration -neuro: Confused, severe right hemiplegia. Time spent more than 35 minutes Plan - Discharge Summary Discharge Rx Participant: No New Discharge Prescriptions: No Action No Known Home Medications Discharge Medication List No Known Home Medications 03/12/22 [History] Follow up Appointment(s)/Referral(s): Mare Jones MD [STAFF PHYSICIAN] - 1 Week None,Stated [Primary Care Provider] - 1-2 days Discharge Disposition: DISCH TO HOSPICE MED FACILTY
--- NOTE | 2022-03-23 10:14 | CDI ---
Documentation Clarification Form Date: 03/23/22 From: Yadira Moreno Admit Date: 03/12/2022 06:47:00 PM Patient Name: Brian Patiño Visit Number: [id number] Discharge Date: 03/20/2022 03:10:00 PM ATTENTION: The Clinical Documentation Specialists (CDI) and [facility] Coding Staff appreciate your assistance in clarifying documentation. Please respond to the clarification below the line at the bottom and electronically sign. The CDI & [facility] Coding staff will review the response and follow-up if needed. Please note: Queries are made part of the Legal Health Record. If you have any questions, please contact the author of this message via ITS. Dr. Garvey E Sheet, There is documentation of multiple acute pulmonary emboli with right heart strain with reflux of contrast into the IVC found in Dr Silva's consult and Dr Bear's consult. Based on this information and the findings below, is there an additional diagnosis that is clinically appropriate for this patient? Patient history/risk factors: cerebral infarction, ATN, aspiration PNA, acute respiratory failure w hypoxia, persistent AF, metabolic/toxic encephalopathy, alcohol cirrhosis & hepatitis, gangrene of toes Clinical Indicators: Chest CT: 1.Scattered pulmonary emboli which are most pronounced on the right. There is signs of right heart strain with reflux of contrast into the IVC. Correlate with serum markers. 2.Wedge-shaped area within the right lower lobe likely representing pulmonary infarct from #1. ECHO: Reduced LV systolic function, possible LV apical thrombus Treatment: IV Heparin [Is there an additional diagnosis that is clinically appropriate for this patient? [ ] Pulmonary embolism with acute cor pulmonale [ ] Pulmonary embolism without acute cor pulmonale [ ] Other, please specify [ ] Unable to determine Unable to determine MTDD
== END 2022-03-20 15:10 | disposition hospice, inpatient (51) | DRG 64 ==
LOC: EC 14:25 → 2SICU 18:47 → 3SCARD 03-16 07:12
PROVIDERS: ADMIT Internal Medicine; ATTEND Internal Medicine
PROC: 3E0234Z Introduction of Serum, Toxoid and Vaccine into Muscle, Percutaneous Approach (ICD-10-PCS; principal; 2022-03-12)
DX: I63.412 Cerebral infarction due to embolism of left middle cerebral artery (principal); I26.99 Other pulmonary embolism without acute cor pulmonale; J96.01 Acute respiratory failure with hypoxia; N17.0 Acute kidney failure with tubular necrosis; J69.0 Pneumonitis due to inhalation of food and vomit; G92.8 Other toxic encephalopathy; I48.19 Other persistent atrial fibrillation; E87.4 Mixed disorder of acid-base balance; I42.9 Cardiomyopathy, unspecified; G81.91 Hemiplegia, unspecified affecting right dominant side; F10.239 Alcohol dependence with withdrawal, unspecified; E87.0 Hyperosmolality and hypernatremia; I96 Gangrene, not elsewhere classified; J98.11 Atelectasis; K56.7 Ileus, unspecified; K70.10 Alcoholic hepatitis without ascites; K70.30 Alcoholic cirrhosis of liver without ascites; R47.01 Aphasia; I51.3 Intracardiac thrombosis, not elsewhere classified; I95.9 Hypotension, unspecified; Z23 Encounter for immunization; Z51.5 Encounter for palliative care; Z66 Do not resuscitate; R47.1 Dysarthria and anarthria; R47.02 Dysphasia; R13.10 Dysphagia, unspecified; D75.89 Other specified diseases of blood and blood-forming organs; R31.9 Hematuria, unspecified; E87.5 Hyperkalemia; N14.1 Nephropathy induced by other drugs, medicaments and biological substances; T50.8X5A Adverse effect of diagnostic agents, initial encounter; S00.81XA Abrasion of other part of head, initial encounter; S00.31XA Abrasion of nose, initial encounter; Y90.0 Blood alcohol level of less than 20 mg/100 ml; E66.9 Obesity, unspecified; Z68.25 Body mass index [BMI] 25.0-25.9, adult; Z86.711 Personal history of pulmonary embolism; Z60.2 Problems related to living alone; Z87.891 Personal history of nicotine dependence; Z71.6 Tobacco abuse counseling; Z71.3 Dietary counseling and surveillance; W18.30XA Fall on same level, unspecified, initial encounter; Y92.230 Patient room in hospital as the place of occurrence of the external cause; Y92.009 Unspecified place in unspecified non-institutional (private) residence as the place of occurrence of the external cause; Z82.49 Family history of ischemic heart disease and other diseases of the circulatory system
CPT/HCPCS: 36415; 36600; 70450; 70496; 70498; 71045; 71046; 71275; 74176; 74230; 76705; 76770; 80048; 80053; 80061; 80074; 80076; 80143; 80179; 80306; 80320; 81001; 82140; 82247; 82570; 82607; 82746; 82805; 83036; 83605; 83735; 83880; 84075; 84156; 84450; 84460; 84484; 85025; 85027; 85379; 85610; 85730; 87086; 90471; 90715; 93005; 93306; 94640; 96365; 96366; 96367; 96372; 96375; 99291

== ENCOUNTER 2022-03-20 14:47 | Inpatient (IN) | payer MEDICAID, OTHER ==
[2022-03-20] MEDS ORDERED: ONDANSETRON 4 MG/2 ML VIAL IVP PRN (14:51)
[2022-03-20] MEDS ORDERED: LORazepam 2 MG/ML INJ IV PRN (14:51)
[2022-03-20] MEDS ORDERED: MORPHINE SULFATE 2 MG/ML SYRINGE IV PRN (14:51)
[2022-03-20] MEDS ORDERED: METOCLOPRAMIDE 5 MG/ML 2 ML VIAL IVP PRN (14:51)
[2022-03-20] MEDS ORDERED: ACETAMINOPHEN TAB 325 MG TAB PO PRN (14:51)
[2022-03-20] MEDS ORDERED: ATROPINE OPHTH SOLN 1% 5ML BTL SUBLINGUAL PRN (14:51)
[2022-03-20] MEDS ORDERED: haloperidoL 1 MG TAB PO PRN (14:51)
[2022-03-20] MEDS ORDERED: GLYCOPYRROLATE 0.2 MG/ML 2 ML VIAL IVP PRN (14:51)
[2022-03-20] MEDS ORDERED: SCOPOLAMINE 1 MG/72 HR PATCH TRANSDERM SCH (15:00)
[2022-03-20] MEDS ORDERED: MORPHINE SULFATE (100 MG/2 ML) 100 MG in SODIUM CHLORIDE 0.9% 100 ML IV SCH (15:00)
[2022-03-20 21:31] VITALS: RESP 15
[2022-03-20 23:08] VITALS: PULSE 129
--- NOTE | 2022-03-21 07:01 | P.HPIM ---
History of Present Illness This note is combined H&P and discharge summary Diagnoses: End of life care, comfort care measures. 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 Resolved Alcoholic abuse at risk of withdrawal Left ventricular mural thrombus Hospital course: 56-year-old male with heavy all call abuse history came in with complaints of right-sided facial droop and right arm weakness along with slurred speech. Patient initially was admitted with severe acute left temporoparietal infarct with severe right sided hemiplegia, also he has evidence of other significant medical problems, including new atrial fibrillation, bilateral pulmonary embolism, acute kidney injury which is resolved, alcoholic hepatitis, cardiomyopathy probably secondary to alcoholic affect with ejection fraction 20- 25% with Saphenous mural thrombosis, alcoholic hepatitis and jaundice. And then patient was severely aphasic he could not talk or answer questions and later on within a few days he's been complicated by aspiration pneumonia. Yesterday was his obtunded, today he is more awake but only mumbles, does not open his eyes spontaneously, does not follow commands. He still severely confused. He has several CT of the brain's 3, last study was showing stable CT findings of acute stroke. No hemorrhage. Patient kept on anticoagulation with heparin drip and Cardizem drip for his A. fib as patient is nothing by mouth now because of his dysphagia and aspiration. Today I received a call from the bedside nurse after rounds, patient's sister was at bedside and wanted her brother to be under hospice care goes she told me she knows her brother and he never wants this, she told me he has a daughter and son who are NOT close to him for the last 15 years however they are next of kin, she provided the phone number for his daughter Nallely at [phone], whom I talked to her and she confirmed to me she is next of kin and she told me she is going to come to the hospital and visit her father today and she wanted to talk to hospice team. Upon family requested hospice consult was placed. Later on patient was accepted under hospice care per family request. However patient's prognosis is extremely poor given his multiple comorbidities and poor quality of life. Including all the above. Because patient is not improving despite prolonged hospitalization, several treatment courses of several consultants on the case. Patient will benefit from palliative care and comfort measures. Patient is no code Prognosis is extremely poor Patient eventually hemodialysis rn.Expiration time is 03:52 on 03/21/2022. Past Medical History Past Medical History: No Reported History History of Any Multi-Drug Resistant Organisms: None Reported Past Surgical History: No Surgical Hx Reported Past Anesthesia/Blood Transfusion Reactions: No Reported Reaction Past Psychological History: No Psychological Hx Reported Smoking Status: Former smoker Past Alcohol Use History: Abuse, Daily Past Drug Use History: None Reported - Past Family History Father Family Medical History: Myocardial Infarction (VT) Additional Family Medical History / Comment(s): Pt states his father had "three heart attacks" Mother History Unknown: Yes Medications and Allergies Home Medications Medication Instructions Recorded Confirmed Type No Known Home Medications 03/12/22 03/12/22 History Allergies Allergy/AdvReac Type Severity Reaction Status Date / Time No Known Allergies Allergy Verified 03/12/22 15:57 Physical Exam Vitals: Vital Signs Pulse Resp 03/20/22 23:06 129 H 15 03/20/22 20:00 134 H 15 Intake and Output 03/20/22 03/21/22 03/21/22 22:59 06:59 14:59 Intake Total 3.026 Output Total 250 400 Balance -246.974 -400 Intake: Intake, IV Titration 3.026 Amount Morphine Sulfate (100 mg/ 3.026 2 ml) 100 mg In Sodium Chloride 0.9% 100 ml @ 1 MG/HR 1.02 mls/hr IV . Q24H [facility] Rx#:[id number] Oral 0 Output: Urine 250 400
== END 2022-03-21 06:54 | disposition expired | DRG 951 ==
LOC: 3SCARD 15:14
PROVIDERS: ADMIT Internal Medicine; ATTEND Internal Medicine
DX: Z51.5 Encounter for palliative care (principal); I63.9 Cerebral infarction, unspecified; G92.8 Other toxic encephalopathy; I26.99 Other pulmonary embolism without acute cor pulmonale; J69.0 Pneumonitis due to inhalation of food and vomit; G81.91 Hemiplegia, unspecified affecting right dominant side; I42.9 Cardiomyopathy, unspecified; N17.9 Acute kidney failure, unspecified; R47.01 Aphasia; R29.810 Facial weakness; R47.81 Slurred speech; R31.9 Hematuria, unspecified; I48.91 Unspecified atrial fibrillation; I51.3 Intracardiac thrombosis, not elsewhere classified; K70.10 Alcoholic hepatitis without ascites; R13.10 Dysphagia, unspecified; R47.02 Dysphasia; Z82.49 Family history of ischemic heart disease and other diseases of the circulatory system; Z87.891 Personal history of nicotine dependence; Z28.311 Partially vaccinated for COVID-19